=== PATIENT | male | born 1950 | race Caucasian/White ===

== ENCOUNTER → 2017-10-15 13:55 | Outpatient (CLI) | payer MEDICARE, OTHER, SELFPAY | PROVIDERS: Family Provider Family Medicine; PCP Family Medicine; Visit Provider Internal Medicine Cardiovascular Disease | DX: I48.91 Unspecified atrial fibrillation (principal) | CPT/HCPCS: 93225; 93226 ==

== ENCOUNTER 2018-08-09 06:17 | Emergency (ER) | payer MEDICARE, OTHER, SELFPAY ==
[2018-08-09 06:18] VITALS: BP 171/93; PULSE 78; RESP 15; TEMP 36.6; O2SAT 93; BMI 31.3
--- NOTE | 2018-08-09 07:16 | CT_ITS ---
STUDY: CT ABDOMEN AND PELVIS WITHOUT CONTRAST REASON FOR EXAM: Male, 68 years old. LOW ABD PAIN, N/V, CONSTIPATION, URINARY FREQUENCY, URINARY PRESSURE-JUST PUT BARRETT IN AND PRESSURE IMPROVED, S/P LB SURG 3 DAYS AGO, HX-HTN, PE, A-FIB. RADIATION DOSAGE (If Supplied By Facility): CTDIvol = ( 18 ) mGy, DLP = ( 930.91 ) mGycm TECHNIQUE: Transaxial images were obtained from the dome of the diaphragm to the symphysis pubis without oral contrast, and without intravenous contrast. Sagittal and coronal images were reconstructed. Individualized dose optimization techniques were used for this CT. COMPARISON: None. FINDINGS: The visualized lung bases are unremarkable. The visualized portions of the heart are within normal limits. Normal liver. Normal gallbladder and extrahepatic biliary system. Normal spleen. Normal pancreas. Normal bilateral adrenal glands. There is minimal prominence of the bilateral collecting system with perinephric stranding. The urinary bladder is decompressed with a Barrett catheter. There is a 3 mm calcification at the right kidney. Normal visualized stomach. Normal small intestine. Normal colon. The appendix is visualized and appears normal. There is diffuse atherosclerotic calcification of the abdominal aorta, without a demonstrated aneurysm. Normal inferior vena cava. Normal retroperitoneum. The urinary bladder is decompressed with a Barrett catheter Normal abdominal wall. There are diffuse degenerative changes of the visualized lumbar spine. There is decompression laminectomy with surgical changes overlying the lower lumbar spine. CT/Abdomen/Pelvis without Cont IMPRESSION: Minimal hydroureteronephrosis with perinephric stranding. No ureteral stones. Laminectomy and surgical changes. Electronically Signed: Rica Lerner MD at 8:54 EST Tel , Service support ,
--- NOTE | 2018-08-09 07:18 | ED.VIS.GEN ---
History of Present Illness Informant: Patient, Significant Other Narrative: Patient presenting with abdominal discomfort and significant pain throughout his lower abdomen, with distention, nausea, vomiting. He has not had a bowel movement in 1 week, and just had back surgery for spinal stenosis 5 days ago. He usually has a daily bowel movement. He has been having weakness and numbness in his legs that are slightly better since his surgery that was performed by Dr. Mcneill at [facility] in [place]. His back is not bothering him very much at all. He is taking oral narcotic pain medication. He was discharged from the hospital last night just about 14-15 hours ago. He states over the past 2 days or so, he has been having symptoms of urinary retention and stress incontinence, and has not been able to have a bowel movement despite lots of stool softeners, laxatives, MiraLAX, enemas. Since having the urinary symptoms his abdominal discomfort has been much worse. 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 He states today he notices that he has perineal numbness, which is new. He was on Xarelto prior to the surgery for chronic paroxysmal A. fib, he is symptomatic when in atrial fibrillation and has had none of that recently, and is supposed to go back on Eliquis afterwards for insurance reasons, but at this time is not taking any anticoagulants. <Chiki Caldera - Last Filed: 08/09/18 07:51> <Forrest Lawrence - Last Filed: 08/09/18 09:24> Chief Complaint: Abd Pain - Past Medical History (1) Spinal stenosis Status: Chronic (2) Paroxysmal atrial fibrillation Status: Chronic (3) Hypertension Status: Chronic <Chiki Caldera - Last Filed: 08/09/18 07:51> Past Medical History Surgical History: - - Ankle and foot fusion Lives: Spouse/ Significant Other Smoking Status: Never smoker - Family History Maternal Family History: Family History (Last Updated 02/27/18 @ 07:15 by Loren Degroot) Mother CVA (cerebral vascular accident) Hypertension Brother Diabetes Family History: Reports: Stroke Paternal Family History: Family History (Last Updated 02/27/18 @ 07:15 by Loren Degroot) Mother CVA (cerebral vascular accident) Hypertension Brother Diabetes Family History: Reports: No pertinent history <Chiki Caldera - Last Filed: 12/02/18 07:51> - Family History Maternal Family History: Family History (Last Updated 02/27/18 @ 07:15 by Loren Degorot) Mother CVA (cerebral vascular accident) Hypertension Brother Diabetes Paternal Family History: Family History (Last Updated 02/27/18 @ 07:15 by Loren Degroot) Mother CVA (cerebral vascular accident) Hypertension Brother Diabetes <Forrest Lawrence - Last Filed: 08/09/18 09:24> - Allergies and Home Meds Allergies/Adverse Reactions: Allergies sulfamethoxazole [From Bactrim] Allergy (Verified 08/09/18 06:24) Hives trimethoprim [From Bactrim] Allergy (Verified 07/13/18 11:06) Hives oxycodone Adverse Reaction (Verified 08/09/18 06:25) Other Primary Care Physician: Linden Velázquez [Primary Care Provider] - 3-5 Days Jack Sanders MD [STAFF PHYSICIAN] - 3-5 Days Review of Systems General: Denies: Chills, Fever, Sweats Eyes: Denies: Visual changes - bilaterally, Diplopia ENT: Denies: Rhinorrhea, Sore throat Cardiovascular: Denies: Chest pain, Palpitations Respiratory: Denies: Dyspnea, Cough, Dyspnea on exertion Gastrointestinal: Reports: Abdominal pain, Nausea, Vomiting, Constipation. Denies: Diarrhea, Melena, Hematochezia Genitourinary: Reports: Frequency, - - retention. stress incontinence when stands up especially.. Denies: Dysuria, Hematuria Musculoskeletal: Reports: Back pain - mild, improved. Denies: Neck pain, Swelling, Extremity Pain Skin: Reports: Wounds - surgical back wound, decreased drainage. Denies: Rash Neurological: Denies: Headache, Weakness, Numbness Endocrine: Denies: Polyuria, Polydipsia Allergy: Denies: Swelling of the mouth, Swelling of the tongue <Chiki Caldera - Last Filed: 08/09/18 07:51> Physical Exam Vital Signs/Narrative: Vital Signs Temp Pulse Resp BP Pulse Ox 08/09/18 06:18 97.8 F 78 15 171/93 H 93 Inital Vital Signs reviewed: Yes General: Well nourished, Well developed, - - NAD Head: Normocephalic, Atraumatic Eyes: Perrl, EOMI ENT: Moist mucous membranes, No rhinorrhea Neck: Supple, Nontender Cardiovascular: Regular rate, Regular rhythm, No murmurs Respiratory: No distress, CTA bilaterally, Chest nontender Abdomen: Soft, Tender - throughout lower abd, Hypoactive bowel sounds, Umbilical hernia - nontender, not erythemetous, reducible termporarily, - - distended. Negative for: Guarding, Rebound tenderness Back: Nontender, Normal Inspection Extremities: Nontender, No edema Skin: Normal color, No rash, - - no lumbar surgical incision dehiscence or signs of infection Neurological: Alert, Oriented x3, Cranial nerves II-XII grossly intact, Normal Strength, Normal Sensation Psychological: Normal affect <Chiki Caldera - Last Filed: 08/09/18 07:51> Vital Signs/Narrative: Vital Signs Temp Pulse Resp BP Pulse Ox 08/09/18 08:24 758 H 18 157/82 H 100 08/09/18 06:18 97.8 F 78 15 171/93 H 93 <Forrest Lawrence - Last Filed: 08/09/18 09:24> Diagnostic/Tx/Re-eval - Medical Decision Making Seen shortly before shift change. Differential diagnosis includes ileus that has yet to resolve versus constipation causing urinary retention, or mechanical obstruction. Labs, urinalysis, CT ordered along with a postvoid residual to see if he needs relief from urinary retention. <Chiki Caldera - Last Filed: 08/09/18 07:51> - Medical Decision Making Lab workup shows a 16,000 white count. Normal hemoglobin. Electrolytes are unremarkable. UA was normal. The nurses did a bladder scan it was over thousand cc. They have placed a Romano catheter which had 1700 cc of clear yellow urine out. Patient had immediate relief. Roamno catheter is in place. CT abdomen and pelvis done shows stool and otherwise unremarkable chronic changes. No signs of obstruction. No perforation. There is an incidental finding of a stone in his kidney. On multiple repeat exams patient is doing very well. His abdomen is benign. I have gone over all test results of both he and his . They are comfortable with him being discharged home with a Romano catheter in place. He will either follow-up with his primary care physician or the urologist on-call for removal of the Romano and repeat evaluation. Magnesium citrate for constipation. Impressions: 1. Acute urinary retention 2. Acute constipation 3. Status post recent back surgery <Forrest Lawrence - Last Filed: 08/09/18 09:24> ED Disposition <Chiki Caldera - Last Filed: 08/09/18 07:51> <Forrest Lawrence - Last Filed: 08/09/18 09:24> - Plan for ED Patient: Disposition: Home or Assisted Living Chief Complaint: Abd Pain Instructions: ED Constipation, ED Retention Urinary Male Referrals: Linden Velázquez [Primary Care Provider] - 3-5 Days Jack Sanders MD [STAFF PHYSICIAN] - 3-5 Days Additional Instructions: Follow-up with your primary care physician or Dr. Sanders of Urology to have the Romano catheter removed. Magnesium citrate for constipation along with plenty of water, fruits, vegetables and fiber.
[2018-08-09] MEDS: Ondansetron 4 MG/2 ML Vial IV (07:42)
[2018-08-09] MEDS: Morphine 4 MG/ML Syringe IV (07:51)
[2018-08-09 08:08] LABS: Absolute Lymphocyte Count 1.34 X10^3/ul (0.83-4.51); Absolute Neutrophil Count 13.6 X10^3/uL (2.0-7.7); Basophil# 0.01 X10^3/uL; Basophil% 0.1 % (0-1); Eosinophil# 0.01 X10^3/uL; Eosinophils% 0.1 % (0-5); Hematocrit 39.1 % (40-54); Hemoglobin 13.2 g/dl (13.0-16.5); Lymphocyte # 1.34 X10^3/ul (4.0); Lymphocyte % 8.1 % (19-41); Mean Corp Hgb Conc 33.8 g/gl (32-36); Mean Corpuscular Hgb 32.5 pg (27.0-32.0); Mean Corpuscular Volume 96.3 fL (80-94); Mean Platelet Vol. 10.8 fl (6.2-12.0); Monocyte# 1.54 X10^3/uL; Monocyte% 9.3 % (0-10); Neutrophil # 13.64 X10^3/uL (2.7-7.7); Neutrophil % 82.3 % (47-70); Platelet Count 196 K/mm3 (150-450); RBC Distribution Width CV 13.7 % (11.6-14.6); RBC Distribution Width SD 47.4 fl (35.1-43.9); Red Blood Count 4.06 M/mm3 (4.6-6.2); White Blood Count 16.6 K/mm3 (4.4-11.0)
[2018-08-09 08:09] LABS: Differential Indicated SCAN CRITERIA MET; POSITIVE COUNT NO; POSITIVE DIFFERENTIAL YES; POSITIVE MORPHOLOGY NO
--- NOTE | 2018-08-09 08:10 | ED.RN ---
after bladder drained. pt pain relieved to 2/10. no further distress noted.
[2018-08-09 08:16] LABS: ALB/GLOB Ratio 0.8 RATIO (0.9-2.4); AST(SGOT) 18 U/L (15-37); Alanine Aminotransfer ALT/SGPT 17 U/L (16-61); Albumin, Serum 3.2 g/dL (3.2-5.0); Alkaline Phosphatase 50 U/L (45-117); Anion Gap 8 (5-15); BUN 13 mg/dL (7-18); BUN/Creat Ratio 17.4 RATIO (10-20); Calcium,Total 8.8 mg/dL (8.5-10.1); Chloride 97 mmol/L (98-107); Creatinine, Serum 0.75 mg/dL (0.70-1.30); EST Glomerular Filtration Rate 111 mL/min (>60); Est Glom Filt Rate - Afr Amer 134 mL/min (>60); Estimated Creatinine Clearance 78.68 ml/min; Globulin 3.9 g/dL (2.2-4.2); Glucose 161 mg/dL (74-106); Protein, Total 7.1 g/dL (6.4-8.2); Sodium Level 137 mmol/L (136-145)
[2018-08-09 08:17] LABS: Bacteria 0 SEEN /hpf (None Seen); Mucous, Urine 0 SEEN /hpf (<or=2+); Red Blood Cells-Urine 0 SEEN /hpf (0-5); Squamous Epithelial Cells - UA 0 SEEN /hpf (0-5); White Blood Cells 0 SEEN /hpf (0-5)
[2018-08-09 08:18] LABS: Color, Urine Yellow (Yellow); Glucose, Dipstick Normal (Normal); Ketone-Dipstick Negative (Negative); Leukocyte Esterase-Dipstick Negative /ul (Negative); Nitrite-Dipstick Negative (Negative); Occult Blood-Urine 150 /ul (Negative); Protein-Dipstick Negative (Negative); Specific Gravity, Urine 1.015 (1.002-1.030); Urine Bilirubin Dipstick Negative (Negative); Urine Clarity Clear (Clear); Urine Urobilinogen Normal (Normal)
[2018-08-09 08:24] VITALS: BP 157/82; PULSE 758; RESP 18; O2SAT 100
--- NOTE | 2018-08-09 08:35 | ED.DEP ---
ED Disposition - Plan for ED Patient: Disposition: Home or Assisted Living Chief Complaint: Abd Pain Instructions: ED Constipation, ED Retention Urinary Male Referrals: Linden Velázquez [Primary Care Provider] - 3-5 Days Jack Sanders MD [STAFF PHYSICIAN] - 3-5 Days Additional Instructions: Follow-up with your primary care physician or Dr. Sanders of Urology to have the Romano catheter removed. Magnesium citrate for constipation along with plenty of water, fruits, vegetables and fiber.
[2018-08-09 09:39] VITALS: BP 113/68; PULSE 71; RESP 15; O2SAT 98
[2018-08-09 09:44] VITALS: BP 142/87; PULSE 75; RESP 16; O2SAT 98
--- NOTE | 2018-08-09 09:45 | ED.RN ---
pt declined mag citrate. dr mcgregor aware and okay with that plan. to get otc if needed. lag bag place. catheter care reviewed. and pt verbalize understanding.
[2018-08-12 13:29] LABS: Pathologist Review Reviewed
--- OUTSIDE RECORDS SUMMARY | 2018-10-02 22:36 | XMS RPT_ITS | Clinical Summary ---
:1950 Author Organization [facility] Address [address] [place] [address] Phone Care Team Providers Name Role Phone MerlinLiang Unavailable 330 Conditions or Problems Problem Name Problem Onset Status Entry Provider Comment Standard Annotate Code Date Date Description Dyspnea on 02329088 Active Fatmata Young Dyspnea on exertion (SNOMED 11/15 11/[address]) Body mass Z68.31 Active Reji Garcia Body mass index index (BMI) (ICD-10-CM 11/14 11/14 Amanda (BMI) 31.0-31.99, ) 31.0-31.9, adult adult MCC Z79.01 Active Janene K MCC (current) use (ICD-10-CM 11/13 11/13 Richy (current) use of ) RN of anticoagulant anticoagulants s Essential I10 Active Janene K Essential (primary) (ICD-10-CM 11/13 11/13 Richy (primary) hypertension ) RN hypertension Paroxysmal 474870102 Active Janene K Paroxysmal atrial (SNOMED 11/13 11/[address]) RN fibrillation Medications Medication Instructions Start Stop Generic Name ND Provider Date Date COREG 12.5 MG One tablet by / CARVEDILOL [id number] Lroen Whitehead TABS mouth twice 08 Kiser, daily PA-C COREG 6.25 MG One tablet by / CARVEDILOL [id number] Reji Garcia TABS mouth twice 08 Amanda CARL daily VITAMIN C 1000 One tablet by / ASCORBIC ACID 76850036283 Reji Garcia MG TABS mouth daily Amanda CARL VITAMIN C 1000 One tablet by / ASCORBIC ACID [id number] Sina Alvarado MG TABS mouth daily WOOL SHEARING SUPERVISOR XARELTO 20 MG One tablet by / RIVAROXABAN 76293579683 Janene K TABS mouth daily 08 Richy PORTER MULTIVITAMINS One tablet by / MULTIPLE Janene K TABS mouth daily 08 VITAMIN Richy PORTER ASPIRIN EC 81 MG One tablet by / ASPIRIN [id number] Janene K TBEC mouth daily 08 Richy PORTER ASPIRIN EC 81 MG One tablet by / ASPIRIN [id number] Reji Garcia TBEC mouth daily Amanda CARL NAPROXEN SODIUM One tablet by / NAPROXEN [id number] Janene K 220 MG TABS mouth twice 08 SODIUM Richy PORTER daily CARVEDILOL 3.125 One tablet by / CARVEDILOL [id number] Janene K MG TABS mouth twice 08 Richy PORTER daily NAPROXEN SODIUM Two tablets by / NAPROXEN [id number] Reji Garcia 220 MG TABS mouth daily 08 SODIUM Amanda CARL NAPROXEN SODIUM Two tablets by / NAPROXEN [id number] Loren Whitehead 220 MG TABS mouth daily GABE Kiser PA-C NAPROXEN SODIUM one pill in the / NAPROXEN [id number] Sina Vance Christiano 220 MG TABS morning and two 03 SODIUM WOOL SHEARING SUPERVISOR pills in the evening. Medications Administered No information available. Allergies, Adverse Reactions, Alerts Allergy Name Reaction Description Start Date Severity Status Provider SULFAMETHOXAZOLE rash Moderate Active Janene Lockhart RN Results Date Name Value Unit Range Flag Description Clinical Lists Update: Preload SMOK STATUS Never smoker Tobacco use [facility] Replaced Document: Midmark ECG Observations EKG INTERP Sinus Rhythm WITHIN electrocardiogram interpretation NORMAL LIMITS EKG T AXIS 26 deg T wave axis, electrocardiogram EKG QRS AXIS 13 deg QRS axis, electrocardiogram EKG PWAVAXIS 40 deg P wave axis, electrocardiogram QRS INTERVAL 98 ms QRS duration, electrocardiogram ZZ-GE-unk 395 ms GE use only - for LinkLogic import when terms are not otherwise specified QT INTERVAL new path ms QT interval, electrocardiogram FL INTERVAL 142 ms FL interval, electrocardiogram EKGHRTRATE 61 BPM heart rate on electrocardiogram Lab Report: Basic Metabolic Profile (BMP) ANION GAP 10 5-15 anion gap, serum CO2 27.0 mmol/L 21.0-32.0 carbon dioxide, venous blood CHLORIDE 102 mmol/L 98-107 chloride, serum POTASSIUM 4.3 mmol/L 3.5-5.1 potassium, serum SODIUM 139 mmol/L 136-145 sodium, serum CALCIUM 9.0 mg/dL 8.5-10.1 calcium, serum BUN/CREAT 24.7 RATIO 10-20 H urea nitrogen/creatinine ratio, serum GFRAA 123 mL/min >60 Glomerular Filtration rate GFR EST 102 mL/min >60 estimated glomerular filtration rate CREATININE 0.81 mg/dL 0.70-1.30 creatinine, serum BUN 20 mg/dL 7-18 H urea nitrogen, blood GLUCOSE SER 109 mg/dL 70-110 blood glucose Lab Report: Liver Profile BILI DIRECT 0.23 mg/dL 0.00-0.30 bilirubin, serum, direct BILI TOTAL 1.10 mg/dL 0.20-1.00 H bilirubin, serum, total SGPT (ALT) 20 U/L 12-78 alanine aminotransferase (SGPT), serum ALK PHOS 50 U/L 45-117 alkaline phosphatase, serum SGOT (AST) 12 U/L 15-37 L aspartate aminotransferase (SGOT), serum GLOBULIN TOT 3.7 g/dL 2.3-3.5 H globulins, serum, total ALBUMIN 3.9 g/dL 3.4-5.0 albumin, serum PROTEIN, TOT 7.6 g/dL 6.4-8.2 protein, total, serum Lab Report: Lipid Profile VLDL 34 mg/dL 5-40 very low density lipoproteins LDL 71 mg/dL 0-130 Cholesterol in LDL [Mass/volume] in Serum or Plasma HDL 55 mg/dL Cholesterol in HDL [Mass/volume] in Serum or Plasma TRIGLYCRDES 170 mg/dL Triglyceride [Mass/volume] in Serum or Plasma CHOLESTEROL 160 mg/dL 200 Cholesterol [Mass/volume] in Serum or Plasma Lab Report: T4 Total, Thyroxin T4, TOTAL 7.1 ug/dL 4.5-12.1 thyroxine, serum, total Lab Report: Thyroid Stim Hormone (TSH) TSH 0.99 u[iU]/mL 0.358-3.74 thyroid stimulating hormone, serum Office Visit: [facility] No Fall risk assessment Lab Report: CBC W/Diff, Automated LYMPHCT AUTO 2.29 X10 3/UL 10*3/mm3 0.83-4.51 lymphocyte count, blood, automated ANC 5.9 X10 3/UL 10*3/mm3 2.0-7.7 neutrophil count, blood IMM GRANU % 0.100 % 0.0-0.9 immature granulocytes, percentage of total cells, blood BASOPHIL % 0.1 % 0-1 basophils as percent of blood leukocytes EOSINOPHIL % 1.4 % 0-5 eosinophils as percent of blood leukocytes MONOCYTE % 8.8 % 0-10 monocytes as percent of blood leukocytes LYMPHS % 25.0 % 19-41 lymphocytes as percent of blood leukocytes PMN % 64.6 % 47-70 neutrophils as percent of blood leukocytes MPV 10.7 fL 6.2-12.0 mean platelet volume PLATELETS 260 10*3/mm3 150-450 platelet count RDW-SD 48.5 fL 35.1-43.9 H red blood cell distribution width, size density RDW 13.7 % 11.6-14.6 red blood cell distribution width MCHC RBC 34.5 G/GL g/dL 32-36 mean corpuscular hemoglobin concentration, RBC MCH 34.8 pg 27.0-32.0 H mean corpuscular hemoglobin, RBC MCV 100.9 fL 80-94 H mean corpuscular volume, RBC HCT 43.2 % 40-54 hematocrit, blood HGB 14.9 g/dL 13.0-16.5 hemoglobin, blood RBC M/UL 4.28 10*6/uL 4.6-6.2 L red blood count WBC BLOOD 9.2 10*9/L 4.4-11.0 leukocyte (white blood cells) count, blood Office Visit: [facility] yes Dietary management education, guidance, and counseling (procedure) MEDS REVIEW Done Documentation of current medications (procedure) Plan of Care Type Date Detail Appointment 04:00 PM Sina Alvarado NP, [address], [address], [place], [address], Appointment 09:45 AM Reji Patel MD, [address], [address], [place], [address], Pending order PFM Pending order Follow Up Appt 6 months Pending order MMM Pending order Follow Up Appt 3 months Pending order *CBC with Differential Pending order *CBC without Diff Pending order *BMP Pending order *T4 (Total) Pending order *TSH Pending order EKG (In office) Pending order *Hepatic Function Panel Pending order *Lipid Profile CC PCP Pending order X-Ray, Chest, PA & Lateral Pending order Nuclear stress test -exercise Pending order MMM Pending order Follow Up Appt 3 months Procedures Code Procedure Name Date Entry Date F/U PFM PFM FUA 6 months Follow Up Appt 6 months F/U MMM MMM FUA 3 months Follow Up Appt 3 months 0184-1 *CBC with Differential F/U MMM MMM FUA 3 months Follow Up Appt 3 months CPT-03571 EKG (In office) NSTE Nuclear stress test -exercise 24341-6 *CBC without Diff 0667-1 *BMP 0788-1 *Hepatic Function Panel 72404-6 *Lipid Profile CC PCP 3026-2 *T4 (Total) 3016-3 *TSH CPT-08439 X-Ray, Chest, PA & Lateral Vital Signs Date Name Value Unit Description BMI (Body Mass Index) 31.60 kg/m2 Body Mass Index [Ratio] BP Diastolic 78 mm[Hg] blood pressure, diastolic - 8462-4 BP Systolic 128 mm[Hg] blood pressure, systolic - 8480-6 Heart Rate 66 /min pulse rate E&M - 8867-4 Height 72 [in_us] height E&M - 8302-2 Weight Measured 233 [lb_av] weight E&M - 3141-9 Respiratory Rate 18 /min respiratory rate E&M - 9279-1
--- OUTSIDE RECORDS SUMMARY | 2018-10-02 22:36 | XMS RPT_ITS ---
:1950 Author Organization [facility] [facility] Address [address] [place], [place] [address] [place] [address] Phone Care Team Providers Name Role Phone Isai LAURA, Rabia Whitehead Sally Reason for Visit Reason For Visit Description Start Date New/Est - 1st visit with physician Preliminary reason for visit data, not yet signed by the author as of lower back pain Preliminary reason for visit data, not yet signed by the author as of Chief Complaint Chief Complaint Description Start Date lower back pain Preliminary chief complaint data, not yet signed by the author as of Instructions Instruction Description Start Date Patient advised to follow-up with Primary Care Physician for BMI management. Plan of Care Type Date Detail Appointment 09:00 AM Rabia LAURA, [address], [place], [address], Appointment 12:00 PM Rabia LAURA, [facility], [address], [place], [address], Appointment 09:20 AM Kian Mcneill DO, [address] [address], [address], [place], [address], Pending order XR LUMBAR 4VWS FLEX/EX Pending order MRI lumbar without contrast Medications Medication Instructions Start Stop Generic Name NDC Provider Date Date XARELTO 20 MG 1 tablet daily RIVAROXABAN [id number] Heidi TABS 17 Watson LUBE TECHNICIAN COREG 12.5 MG 1 tablet twice / CARVEDILOL 10232567094 Heidi TABS daily 17 Watson LUBE TECHNICIAN ALEVE 220 MG as directed as / NAPROXEN 02120707437 Heidi TABS needed 17 SODIUM Watson LUBE TECHNICIAN MULTIVITAMIN 1 tablet daily [id number] Heidi ADULT TABS 06 VITAMINS-CLINICAL MASSAGE THERAPIST Watson ALS LUBE TECHNICIAN Conditions or Problems Problem Problem Onset Status Entry Provider Comment Standard Annotate Name Code Date Date Description Lumbar 79329945 Active Rabia Whitehead Degeneration of Severe degenerativ (SNOMED CT) 04/27 04/27 [place] lumbar multilevel e disc SENIOR C SOFTWARE DEVELOPER-INSPECTOR BOILER intervertebral disease disc Lumbar 93029815738 Active Rabia Whitehead Neurogenic stenosis 9102 04/27 04/27 [place] claudication with (SNOMED CT) SENIOR C SOFTWARE DEVELOPER-INSPECTOR BOILER co-occurrent neurogenic and due to claudicatio spinal stenosis n of lumbar region Allergies, Adverse Reactions, Alerts Allergy Name Reaction Start Date Severity Status Provider Description BACTRIM rash Critical Active Heidi Watson (SULFAMETHOXAZ LUBE TECHNICIAN OLE-TRIMETHOPR IM) Social History No information available. Vital Signs Date Name Value Unit Description BMI (Body Mass 31.49 kg/m2 Body Mass Index Index) [Ratio] Preliminary vital sign data, not yet signed by the author as of BP Diastolic 78 mm[Hg] blood pressure, diastolic Preliminary vital sign data, not yet signed by the author as of BP Systolic 129 mm[Hg] blood pressure, systolic Preliminary vital sign data, not yet signed by the author as of Heart Rate 67 /min pulse rate E&M Preliminary vital sign data, not yet signed by the author as of Height 71 [in_us] height E&M Preliminary vital sign data, not yet signed by the author as of Height 180 cm height in centimeters E&M Preliminary vital sign data, not yet signed by the author as of Weight Measured 225 [lb_av] weight E&M Preliminary vital sign data, not yet signed by the author as of Weight Measured 102 kg weight in kilograms E&M Preliminary vital sign data, not yet signed by the author as of Results Date Name Value Unit Range Flag Description Office Visit: New/Est - 1st visit with physician, Rm: 43 MEDS REVIEW Done Documentation of current medications (procedure) Preliminary observation data, not yet signed by the author as of Preliminary observation data, not yet signed by the author as of Clinical Summary: Scanned ROS Summary ROS: Denies genitourinary review of systems, E&M ROS: GI Denies ROS gastrointestinal E&M ROS ENDO Denies endocrine ROS ROS MSK COMM Muscle ROS Musculoskeletal Cramps,Muscle comments Weakness,Pain,J oint Pain,Stiffness, Arthritis ROS:MUSCSKEL Complains ROS musculoskeletal E&M ROS: PSYCH Denies ROS psychiatric E&M ROS HEME Denies ROS hematologic/lymphatic E&M ROS_SKIN_COM Hives Review of Systems Skin comment ROS SKIN Complains ROS skin E&M ROS ENT Denies ROS ENT E&M ROS:GENERAL Denies ROS general E&M ROS_NEUR_COM Numbness,Tingli Review of Systems ng,Weakness Neurologic comment ROS: NEURO Complains ROS neurological E&M ROS:PULMON Denies ROS pulmonary E&M ROS: CARDIAC Denies ROS cardiovascular E&M Clinical Summary: HMSPatientID OOP account number Clinical Lists Update: Preload Extended SMOK STATUS never smoker Tobacco smoking status NHIS Procedures Code Procedure Name Date Entry Date G8730 Pain assessment documented as positive - follow-up documented G8427 Current medications documented 1036F Tobacco screening was negative - non user G8417 BMI documented as above normal parameters - follow-up documented G8783 Blood pressure within normal parameters - no follow-up required [facility]-[id number] Patient Encounter Medications Administered No information available. Immunizations No information available. Advance Directives There may be information available, but it has not been provided by the sender. Assessments There may be information available, but it has not been provided by the sender. Review of Systems There may be information available, but it has not been provided by the sender. Family History There may be information available, but it has not been provided by the sender. History of Past Illness There may be information available, but it has not been provided by the sender. History of Present Illness There may be information available, but it has not been provided by the sender.
--- OUTSIDE RECORDS SUMMARY | 2018-10-02 22:36 | XMS RPT_ITS ---
:1950 Author Organization [employer] Address [address] [place] [address] Phone Care Team Providers Name Role Phone Ventura LAURA, Ashley Zavala Reason for Visit Reason For Visit Description Start Date Postop - 1st visit Preliminary reason for visit data, not yet signed by the author as of mid back post bilateral posterior hemilectomy T11, T12 and bilateral posterior hemilectomy L2-L5 on 08/05/2018 Preliminary reason for visit data, not yet signed by the author as of Chief Complaint Chief Complaint Description Start Date mid back post bilateral posterior hemilectomy T11, T12 and bilateral posterior hemilectomy L2-L5 on 08/05/2018 Preliminary chief complaint data, not yet signed by the author as of Instructions Instruction Description Start Date Patient advised to follow-up with Primary Care Physician for BMI management. Plan of Care Type Date Detail Appointment 11:00 AM Ashley LAURA, [address] [facility], [facility], [place], [address], Appointment 01:00 PM Ashley LAURA, [address] [facility], [facility], [place], [address], Medications Medication Instructions Start Stop Generic Name NDC Provider Date Date XARELTO 20 MG 1 tablet daily / RIVAROXABAN [id number] Heidi TABS 17 Watson WRAPPER HAND COREG 12.5 MG 1 tablet twice / CARVEDILOL 76626862949 Heidi TABS daily 17 Watson WRAPPER HAND ALEVE 220 MG as directed as / NAPROXEN [id number] Heidi TABS needed 17 SODIUM Watson WRAPPER HAND MULTIVITAMIN 1 tablet daily [id number] Heidi ADULT TABS 06 VITAMINS-PNEUMATIC SYSTEMS OPERATOR Watson ALS WRAPPER HAND Conditions or Problems Problem Problem Onset Status Entry Provider Comment Standard Annotate Name Code Date Date Description Other 699114791 Active Ashley Surgical specified (SNOMED CT) 10/14 10/14 [place] follow-up aftercare RESEARCH COORDINATOR-DIRECTOR FOUNDATION following surgery HNP 169484997 Active Ashley Prolapsed (herniated (SNOMED CT) 05/07 05/07 [place] lumbar nucleus RESEARCH COORDINATOR-DIRECTOR FOUNDATION intervertebral pulposus), disc lumbar Lumbar 08534602 Active Rabia Whitehead 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 Vital Signs Date Name Value Unit Description BMI (Body Mass 31.49 kg/m2 Body Mass Index Index) [Ratio] Preliminary vital sign data, not yet signed by the author as of BP Diastolic 78 mm[Hg] blood pressure, diastolic Preliminary vital sign data, not yet signed by the author as of BP Systolic 130 mm[Hg] blood pressure, systolic Preliminary vital sign data, not yet signed by the author as of Heart Rate 65 /min pulse rate E&M Preliminary vital sign [...] Value Unit Range Flag Description Office Visit: Postop - 1st visit, Rm: 31 MEDS REVIEW Done Documentation of current medications (procedure) Preliminary observation data, not yet signed by the author as of Preliminary observation data, not yet signed by the author as of Clinical Summary: [facility] OOP account number Procedures Code Procedure Name Date Entry Date G8731 Pain assessment documented as negative - follow-up not required G8427 Current medications documented 1036F Tobacco screening was negative - non user G8417 BMI documented as above normal parameters - follow-up documented G8783 Blood pressure within normal parameters - no follow-up required [facility]-[id number] Patient Encounter Medications Administered No information available. [...]
--- OUTSIDE RECORDS SUMMARY | 2018-10-02 22:36 | XMS RPT_ITS | Clinical Summary ---
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 Janene K snf (current) use (ICD-10-CM 11/13 11/13 Richy (current) use of ) RN of anticoagulant anticoagulants s Essential I10 Active Janene K Essential (primary) (ICD-10-CM 11/13 11/13 Richy (primary) hypertension ) RN hypertension Paroxysmal 267190192 Active Janene K Paroxysmal atrial (SNOMED 11/13 11/[address]) RN fibrillation Medications Medication Instructions Start Stop Generic Name NDC Provider Date Date COREG 12.5 MG One tablet by / CARVEDILOL [id number] Loren Whitehead TABS mouth twice 08 jake Kiser PA-C COREG 6.25 MG One tablet by / CARVEDILOL 77642303856 Reji Garcia TABS mouth twice 08 Amanda CARL daily XARELTO 20 MG One tablet by / RIVAROXABAN 00674739101 Janene Mcmillan TABS mouth daily 08 Richy RN MULTIVITAMINS One tablet by / MULTIPLE Janene K TABS mouth daily 08 VITAMIN Richy PORTER VITAMIN C 1000 One tablet by / ASCORBIC ACID 12542008796 Reji F MG TABS mouth daily 09 Amanda CARL ASPIRIN EC 81 MG One tablet by / ASPIRIN 45031199171 Janene K TBEC mouth daily 08 Richy PORTER ASPIRIN EC 81 MG One tablet by ASPIRIN 13036583614 Reji Garcia TBEC mouth daily Amanda CARL NAPROXEN SODIUM One tablet by / NAPROXEN 05758595774 Janene K 220 MG TABS mouth twice 08 SODIUM Richy PORTER daily CARVEDILOL 3.125 One tablet by / CARVEDILOL 60149597092 Janene K MG TABS mouth twice 08 Richy PORTER daily NAPROXEN SODIUM Two tablets by / NAPROXEN 89353284579 Reji Garcia 220 MG TABS mouth daily 08 SODIUM Amanda CARL NAPROXEN SODIUM Two tablets by NAPROXEN 32010381107 Loren Whitehead 220 MG TABS mouth daily GABE Kiser PA-C Medications Administered No information available. Allergies, Adverse Reactions, Alerts Allergy Name Reaction Description Start Date Severity Status Provider SULFAMETHOXAZOLE rash Moderate Active Janene Lockhart RN Results Date Name Value Unit Range Flag Description Clinical Lists Update: Preload SMOK STATUS Never smoker Tobacco use [facility] Office Visit DIET PUBLICATIONS DISTRIBUTION CLERK yes Dietary management education, guidance, and counseling (procedure) Replaced Document: [facility]mark ECG Observations EKG INTERP [...] INTERVAL new path ms QT interval, electrocardiogram [place] INTERVAL 142 ms [place] interval, electrocardiogram EKGHRTRATE 61 BPM heart rate [...] 0.358-3.74 thyroid stimulating hormone, serum Office Visit: [facility] MEDS REVIEW Done Documentation of current medications (procedure) FALLRSKASSES No Fall risk assessment Lab Report: CBC [...] 4.4-11.0 leukocyte (white blood cells) count, blood Plan of Care Type Date Detail Appointment 11:00 AM Loren Kiser PA-C, [address] [facility], [address], [place], [address], Pending order MMM Pending order Follow Up [...] Code Procedure Name Date Entry Date F/U MMM MMM FUA 3 months Follow Up Appt 3 months 0184-1 *CBC with Differential F/U MMM MMM FUA 3 months Follow Up Appt 3 months CPT-96648 EKG (In office) NSTE Nuclear stress test -exercise 59578-2 *CBC without Diff 0667-1 *BMP 0788-1 *Hepatic Function Panel 79311-6 *Lipid Profile CC PCP 3026-2 *T4 (Total) 3016-3 *TSH CPT-64890 X-Ray, Chest, PA & Lateral Vital Signs Date Name Value Unit Description BMI (Body Mass Index) 31.41 kg/m2 Body Mass Index [Ratio] BP Diastolic 82 mm[Hg] blood pressure, diastolic - 8462-4 BP Systolic 140 mm[Hg] blood pressure, systolic - 8480-6 Heart Rate 76 /min pulse rate E&M - 8867-4 Height 72 [in_us] height E&M - 8302-2 Respiratory Rate 18 /min respiratory rate E&M - 9279-1 Weight Measured 231.6 [lb_av] weight E&M - 3141-9
--- OUTSIDE RECORDS SUMMARY | 2018-10-02 22:36 | XMS RPT_ITS ---
:1950 Author Organization [employer] Address [address] [place] [address] [place] [address] Phone Care Team Providers Name Role Phone Ventura LAURA, Ashley Zavala Reason for Visit Reason For Visit Description Start Date Postop - subsequent visit Preliminary reason for visit data, not yet signed by the author as of lower back post bilateral posterior hemilectomy T11 T12 bilateral posterior hemilectomy L2-L5 on 08/05/2018 Preliminary reason for visit data, not yet signed by the author as of Chief Complaint Chief Complaint Description Start Date lower back post bilateral posterior hemilectomy T11 T12 bilateral posterior hemilectomy L2-L5 on 08/05/2018 Preliminary chief complaint data, not yet signed by the author as of Instructions Instruction Description Start Date Patient advised to follow-up with Primary Care Physician for BMI management. Plan of Care Type Date Detail Appointment 01:00 PM Ashley LAURA, [address] [facility], [place], [address], Appointment 09:00 AM Ashley LAURA, [address] [facility], [place], [address], Patient education \cps-[email or web address]\CPS_PtEducation\[facility] _FALL_PREVENTION.pdf Medications Medication Instructions Start Stop Generic Name NDC Provider Date Date NORCO 5-325 MG Take 1 tablet HYDROCODONE-A [id number] Ashley TABS by mouth every CETAMINOPHEN [facility] 6 hours as SCHOOL LIBRARY MEDIA PROGRAM DIRECTOR-FINANCIAL DEALERS needed for pain ELIQUIS 5 MG 1 tablet daily / APIXABAN 58905429117 Ashley TABS 13 [place] SCHOOL LIBRARY MEDIA PROGRAM DIRECTOR-FINANCIAL DEALERS COREG 12.5 MG 1 tablet twice / CARVEDILOL 95827227829 Heidi TABS daily 17 Watson E COMMERCE RETAILER MULTIVITAMIN 1 tablet daily / MULTIPLE 08440013586 Heidi ADULT TABS 06 VITAMINS-MINE Watson E COMMERCE RETAILER RALS Conditions or Problems Problem Problem Onset Status Entry Provider Comment Standard Annotate Name Code Date Date Description Other 948029551 Active Ashley Surgical specified (SNOMED CT) 10/14 10/14 [place] follow-up aftercare SCHOOL LIBRARY MEDIA PROGRAM DIRECTOR-FINANCIAL DEALERS following surgery HNP 258460157 Active Ashley Prolapsed (herniated (SNOMED CT) 05/07 05/07 [facility] lumbar nucleus SCHOOL LIBRARY MEDIA PROGRAM DIRECTOR-FINANCIAL DEALERS intervertebral pulposus), disc lumbar Lumbar 46775399 Active Rabia Whitehead Degeneration of Severe degenerativ (SNOMED CT) 04/27 04/27 [place] lumbar multilevel e disc SCHOOL LIBRARY MEDIA PROGRAM DIRECTOR-FINANCIAL DEALERS intervertebral disease disc Lumbar 58364412606 Active Rabia Whitehead Neurogenic stenosis 9102 04/27 04/27 [place] claudication with (SNOMED CT) SCHOOL LIBRARY MEDIA PROGRAM DIRECTOR-FINANCIAL DEALERS co-occurrent neurogenic and due to claudicatio spinal stenosis n of lumbar region Allergies, Adverse Reactions, Alerts Allergy Name Reaction Start Date Severity Status Provider Description BACTRIM rash Critical Active Heidi Watson (SULFAMETHOXAZ E COMMERCE RETAILER OLE-TRIMETHOPR IM) Social History No information available. Vital Signs Date Name Value Unit Description BMI (Body Mass 31.49 kg/m2 Body Mass Index Index) [Ratio] Preliminary vital sign data, not yet signed by the author as of BP Diastolic 80 mm[Hg] blood pressure, diastolic Preliminary vital sign data, not yet signed by the author as of BP Systolic 136 mm[Hg] blood pressure, systolic Preliminary vital sign data, not yet signed by the author as of Heart Rate 71 /min pulse rate E&M Preliminary vital sign [...] Range Flag Description Office Visit: Postop - subsequent visit, Rm: 30 MEDS REVIEW Done Documentation of current medications (procedure) Preliminary observation data, not yet signed by the author as of Preliminary observation data, not yet signed by the author as of Clinical Summary: [facility] account number Office Visit: Postop - 1st visit, Rm: 31 MEDS REVIEW Done Documentation of current medications (procedure) Clinical Summary: [facility] account number Procedures Code Procedure Name Date Entry Date G8730 Pain assessment documented as positive - follow-up documented G8427 Current medications documented 1036F Tobacco screening was negative - non user G8417 BMI documented as above normal parameters - follow-up documented G8783 Blood pressure within normal parameters - no follow-up required 1100F Fallen more than twice or injured themselves from a fall documented 3288F Falls risk assessment documented 0518F Falls plan of care documented [id number] Patient Encounter Medications Administered No information available. [...]
--- OUTSIDE RECORDS SUMMARY | 2018-10-02 22:37 | XMS RPT_ITS ---
:1950 Author Organization [facility] Address [address] [place] [address] Phone Care Team Providers Name Role Phone Kian Mcneill DO Unavailable Reason for Visit Reason For Visit Description Start Date Test Result Preliminary reason for visit data, not yet [...] Plan of Care Type Date Detail Appointment 08:30 AM Kian Mcneill DO, [address] [place], [address], Appointment 01:00 PM Ashley Whitehead SAP SECURITY ARCHITECT-SAMPLE FINISHER, [address], [address], Patient education \cps-[email or web address]\CPS_PtEducation\CDC _FALL_PREVENTION.pdf Medications Medication Instructions Start Stop Generic Name NDC Provider Date Date XARELTO 20 MG 1 tablet daily / RIVAROXABAN [id number] Heidi TABS 17 Watson WOVEN LABEL DESIGNER COREG 12.5 MG 1 tablet twice / CARVEDILOL 64779110522 Heidi TABS daily 17 Watson WOVEN LABEL DESIGNER ALEVE 220 MG as directed as / NAPROXEN 22699877260 Heidi TABS needed 17 SODIUM Watson WOVEN LABEL DESIGNER MULTIVITAMIN 1 tablet daily 2012 37481430357 Heidi ADULT TABS 06 VITAMINS-PROBATE LAWYER Watson ALS WOVEN LABEL DESIGNER Conditions or Problems Problem Problem Onset Status Entry Provider Comment Standard Annotate Name Code Date Date Description HNP 759610080 Active Ashley Prolapsed (herniated (SNOMED CT) 05/07 05/07 [place] lumbar nucleus SAP SECURITY ARCHITECT-SAMPLE FINISHER intervertebral pulposus), disc lumbar Lumbar 44961466 Active Rabia Whitehead Degeneration of Severe degenerativ (SNOMED CT) 04/27 04/27 [place] lumbar multilevel e disc SAP SECURITY ARCHITECT-SAMPLE FINISHER intervertebral disease disc Lumbar 53781159135 Active Rabia Whitehead Neurogenic stenosis 9102 04/27 04/27 [place] claudication with (SNOMED CT) SAP SECURITY ARCHITECT-SAMPLE FINISHER co-occurrent neurogenic and due to claudicatio spinal stenosis n of lumbar region Allergies, Adverse Reactions, Alerts Allergy Name Reaction Start Date Severity Status Provider Description BACTRIM rash Critical Active Heidi Watson (SULFAMETHOXAZ WOVEN LABEL DESIGNER OLE-TRIMETHOPR IM) Social History No information available. Vital Signs Date Name Value Unit Description BMI (Body Mass 31.49 kg/m2 Body Mass Index Index) [Ratio] Preliminary vital sign data, not yet signed by the author as of BP Diastolic 74 mm[Hg] blood pressure, diastolic Preliminary vital sign data, not yet signed by the author as of BP Systolic 116 mm[Hg] blood pressure, systolic Preliminary vital sign data, not yet signed by the author as of Heart Rate 56 /min pulse rate E&M Preliminary vital sign [...] Value Unit Range Flag Description Office Visit: Test Result, Rm: 40 MEDS REVIEW Done Documentation of current medications (procedure) Preliminary observation data, not yet signed by the author as of Preliminary observation data, not yet signed by the author as of XRAY HX of the lumbar on xray history 04/27/2018 at [facility] Preliminary observation data, not yet signed by the author as of MRI HX of the lumbar on MRI (magnetic 05/01/2018 at [facility] resonance imaging) history Preliminary observation data, not yet signed by the author as of Clinical Summary: [facility] OOP account number Procedures Code Procedure Name Date Entry Date L0641 BASIC LUMBAR SUPPORT (BREG) Medications Administered No information available. Immunizations No [...]
--- OUTSIDE RECORDS SUMMARY | 2018-10-02 22:37 | XMS RPT_ITS | Clinical Summary ---
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) use (ICD-10-CM 11/13 11/13 Richy (current) use of ) RN of anticoagulant anticoagulants s Essential I10 Active Janene Mcmillan Essential (primary) (ICD-10-CM 11/13 11/13 Richy (primary) hypertension ) RN hypertension Paroxysmal 332636512 Active Janene Mcmillan Paroxysmal atrial (SNOMED 11/13 11/[address]) RN fibrillation Medications Medication Instructions Start Stop Generic Name ND Provider Date Date COREG 6.25 MG One tablet by / CARVEDILOL 78864471155 Reji Garcia TABS mouth twice 08 Amanda CARL daily ASPIRIN EC 81 MG One tablet by / ASPIRIN 85146798652 Janene Mcmillan TBEC mouth daily 08 Richy PORTER ASPIRIN EC 81 MG One tablet by ASPIRIN 92464385957 Reji Garcia TBEC mouth daily Amanda CARL NAPROXEN SODIUM One tablet by / NAPROXEN 54532213517 Janene Mcmillan 220 MG TABS mouth twice 08 SODIUM Richy RN daily CARVEDILOL 3.125 One tablet by / CARVEDILOL 98288818324 Janene K MG TABS mouth twice 08 Richy RN daily XARELTO 20 MG One tablet by / RIVAROXABAN 02532678024 Janene K TABS mouth daily 08 Richy PORTER MULTIVITAMINS One tablet by / MULTIPLE Janene K TABS mouth daily 08 VITAMIN Richy PORTER VITAMIN C 1000 One tablet by / ASCORBIC ACID 94511131453 Reji F MG TABS mouth daily 09 Amanda CARL NAPROXEN SODIUM Two tablets by / NAPROXEN 79002023154 Reji F 220 MG TABS mouth daily 08 SODIUM Amanda CARL Medications Administered No information available. Allergies, Adverse Reactions, Alerts Allergy Name Reaction Description Start Date Severity Status Provider SULFAMETHOXAZOLE rash Moderate Active Janene Lockhart RN Results Date Name Value Unit Range Flag Description Clinical Lists Update: Preload SMOK STATUS Never smoker Tobacco use [facility] Office Visit DIET ORTHODONTIC ASSISTANT yes Dietary management education, guidance, and counseling (procedure) MEDS REVIEW Done Documentation of current medications (procedure) Replaced Document: [facility]mark ECG Observations EKG [...] INTERVAL new path ms QT interval, electrocardiogram [place] INTERVAL 142 ms [place] interval, electrocardiogram EKGHRTRATE 61 BPM heart rate on electrocardiogram Lab Report: CBC-Complete Blood Cnt No Diff MPV 10.8 fL 6.2-12.0 mean platelet volume PLATELETS 239 10*3/mm3 150-450 platelet count RDW-SD 46.8 fL 35.1-43.9 H red blood cell distribution width, size density RDW 13.8 % 11.6-14.6 red blood cell distribution width MCHC RBC 33.6 G/GL g/dL 32-36 mean corpuscular hemoglobin concentration, RBC MCH 32.1 pg 27.0-32.0 H mean corpuscular hemoglobin, RBC MCV 95.5 fL 80-94 H mean corpuscular volume, RBC HCT 46.4 % 40-54 hematocrit, blood HGB 15.6 g/dL 13.0-16.5 hemoglobin, blood RBC M/UL 4.86 10*6/uL 4.6-6.2 red blood count WBC BLOOD 7.2 10*9/L 4.4-11.0 leukocyte (white blood cells) count, blood Lab Report: Basic Metabolic Profile (BMP) ANION [...] 0.99 u[iU]/mL 0.358-3.74 thyroid stimulating hormone, serum Plan of Care Type Date Detail Appointment 03:00 PM TOMAS StricklandC, [address] [facility], [address], [place], [address], Pending order *CBC without Diff Pending order [...] 3 months Follow Up Appt 3 months CPT-74286 EKG (In office) NSTE Nuclear stress test -exercise 30507-1 *CBC without Diff 0667-1 *BMP 0788-1 *Hepatic Function Panel 60809-6 *Lipid Profile CC PCP 3026-2 *T4 (Total) 3016-3 *TSH CPT-18954 X-Ray, Chest, PA & Lateral Vital Signs Date Name Value Unit Description BMI (Body Mass Index) 31.46 kg/m2 Body Mass Index [Ratio] BP Diastolic 78 mm[Hg] blood pressure, diastolic - 8462-4 BP Systolic 142 mm[Hg] blood pressure, systolic - 8480-6 Heart Rate 64 /min pulse rate E&M - 8867-4 Height 72 [in_us] height E&M - 8302-2 Respiratory Rate 16 /min respiratory rate E&M - 9279-1 Weight Measured 232 [lb_av] weight E&M - 3141-9
--- OUTSIDE RECORDS SUMMARY | 2018-10-02 22:37 | XMS RPT_ITS ---
:1950 Author Organization [place] Care Team Providers Name Role Phone Adela Styles Attending Unavailable CHACORTALLA, LINDEN Primary Care Unavailable Reji aPtel Attending Unavailable Reji Patel Referring Unavailable ROMINAA, LINDEN Primary Care Unavailable Reji Patel Attending Unavailable Reji Patel Referring Unavailable Loren Degroot Attending Unavailable MoodReji lopez Attending Unavailable PETRILLA, LINDEN Referring Unavailable PETRILLA, LINDEN Primary Care Unavailable Sina Alvarado Attending Unavailable PETRILLA, LINDEN Referring Unavailable PETRILLA, LINDEN Primary Care Unavailable RAJIV GONGORA Attending Unavailable Adela Styles Attending Unavailable Adela Styles Referring Unavailable LINDEN VELÁZQUEZ Primary Care Unavailable PROBLEMS PROBLEMS DATE TYPE CONDITION / CODE ATTENDING STATUS SOURCE 08/14/2018 Unknown R30.0 - Dysuria / Adela Styles Active [place] R30.0(ICD-10) M [facility] Repository 08/19/2018 Unknown R10.30 - RAJIV Mcdonough Active [place] abdominal pain, Community unspecified / Hospital R10.30(ICD-10) Repository 07/13/2018 Unknown I48.0 - Paroxysmal RoofSina Active [place] atrial Community fibrillation / Hospital I48.0(ICD-10) Repository PROCEDURES PROCEDURES No Procedure Records FoundRESULTS RESULTS Observed: 08/14/2018 Status: F Source: [facility] CULTURE, URINE 12:00 AM [facility] REPOSITORY Urine Culture ORGANISM 1: Presumptive E. coli [place] Count >100,000 Presumptive E. coli: REACTION Amoxacillin/Clavulanic Acid $ <=2 S Ampicillin $ <=2 S Ampicillin/Sulbactam $ <=2 S Cefazolin $ <=4 S Cefepime $ <=1 S Ceftriaxone $ <=1 S Ciprofloxacin $ <=0.25 S ESBL - Ertapenim $$$ <=0.5 S Gentamicin $ <=1 S Imipenem *NF <=0.25 S Levofloxacin $ <=0.12 S Nitrofurantoin $ 64 I Piperacillin/Tazobactam $$ <=4 S Tobramycin $ <=1 S Trimethoprim/Sulfametho $ <=20 S (NF) indicates non-formulary drug at [facility]. Approval by Infectious Disease Specialist required before non-formulary drugs may be ordered and/or dispensed. Performed By: #### M100.0650 #### [facility] [address] [place], [address] EMERGENCY DEPARTMENT Observed: 08/09/2018 Status: F Source: NU [facility]INE SUMMARY 10:33 PM [facility] REPOSITORY [facility] Medical Records Department [address] [place] [address] Emergency Department Summary 08/09/18 0718 MR#: [id number] Acct: [id number] Name: JEFFERSON BARRETO Rep #: [id number] : 1950 68 From: Rajiv Gongora MD PCP: Linden Velázquez, DO Status: DEP ER History of Present Illness Informant: Patient, Significant Other Narrative: Patient presenting with abdominal discomfort and significant pain throughout his lower abdomen, with distention, nausea, vomiting. He has not had a bowel movement in 1 week, and just had back surgery for spinal stenosis 5 days ago. He usually has a daily bowel movement. He has been having weakness and numbness in his legs that are slightly better since his surgery that was performed by Dr. Yates at [facility] in [place]. His back is not bothering him very much at all. He is taking oral narcotic pain medication. He was discharged from the hospital last night just about 14-15 hours ago. He states over the past 2 days or so, he has been having symptoms of urinary retention and stress incontinence, and has not been able to have a bowel movement despite lots of stool softeners, laxatives, MiraLAX, enemas. Since having the urinary symptoms his abdominal discomfort has been much worse. 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 He states today he notices that he has perineal numbness, which is new. He was on Xarelto prior to the surgery for chronic paroxysmal A. fib, he is symptomatic when in atrial fibrillation and has had none of that recently, and is supposed to go back on Eliquis afterwards for insurance reasons, but at this time is not taking any anticoagulants. <Rajiv Gongora - Last Filed: 08/09/18 07:51> <Forrest Lawrence - Last Filed: 08/09/18 09:24> Chief Complaint: Abd Pain - Past Medical History (1) Spinal stenosis Status: Chronic (2) Paroxysmal atrial fibrillation Status: Chronic (3) Hypertension Status: Chronic <Rajiv Gongora - Last Filed: 08/09/18 07:51> Past Medical History Surgical History: - - Ankle and foot fusion Lives: Spouse/ Significant Other Smoking Status: Never smoker - Family History Maternal Family History: Family History (Last Updated 02/27/18 @ 07:15 by Loren Degroot) Mother CVA (cerebral vascular accident) Hypertension Brother Diabetes Family History: Reports: Stroke Paternal Family History: Family History (Last Updated 02/27/18 @ 07:15 by Loren Degroot) Mother CVA (cerebral vascular accident) Hypertension Brother Diabetes Family History: Reports: No pertinent history <Rajiv Gongora - Last Filed: 08/09/18 07:51> - Family History Maternal Family History: Family History (Last Updated 02/27/18 @ 07:15 by Loren Degroot) Mother CVA (cerebral vascular accident) Hypertension Brother Diabetes Paternal Family History: Family History (Last Updated 02/27/18 @ 07:15 by Loren Degroot) Mother CVA (cerebral vascular accident) Hypertension Brother Diabetes <Forrest Lawrence - Last Filed: 08/09/18 09:24> - Allergies and Home Meds Allergies/Adverse Reactions: Allergies sulfamethoxazole [From Bactrim] Allergy (Verified 08/09/18 06:24) Hives trimethoprim [From Bactrim] Allergy (Verified 07/13/18 11:06) Hives oxycodone Adverse Reaction (Verified 08/09/18 06:25) Other Primary Care Physician: Linden Velázquez [Primary Care Provider] - 3-5 Days Jack Sanders MD [STAFF PHYSICIAN] - 3-5 Days Review of Systems General: Denies: Chills, Fever, Sweats Eyes: Denies: Visual changes - bilaterally, Diplopia ENT: Denies: Rhinorrhea, Sore throat Cardiovascular: Denies: Chest pain, Palpitations Respiratory: Denies: Dyspnea, Cough, Dyspnea on exertion Gastrointestinal: Reports: Abdominal pain, Nausea, Vomiting, Constipation. Denies: Diarrhea, Melena, Hematochezia Genitourinary: Reports: Frequency, - - retention. stress incontinence when stands up especially.. Denies: Dysuria, Hematuria Musculoskeletal: Reports: Back pain - mild, improved. Denies: Neck pain, Swelling, Extremity Pain Skin: Reports: Wounds - surgical back wound, decreased drainage. Denies: Rash Neurological: Denies: Headache, Weakness, Numbness Endocrine: Denies: Polyuria, Polydipsia Allergy: Denies: Swelling of the mouth, Swelling of the tongue <Rajiv Gongora - Last Filed: 08/09/18 07:51> Physical Exam Vital Signs/Narrative: Vital Signs 08/09/18 06:18 97.8 F 78 15 171/93 H 93 Inital Vital Signs reviewed: Yes General: Well nourished, Well developed, - - NAD Head: Normocephalic, Atraumatic Eyes: Perrl, EOMI ENT: Moist mucous membranes, No rhinorrhea Neck: Supple, Nontender Cardiovascular: Regular rate, Regular rhythm, No murmurs Respiratory: No distress, CTA bilaterally, Chest nontender Abdomen: Soft, Tender - throughout lower abd, Hypoactive bowel sounds, Umbilical hernia - nontender, not erythemetous, reducible termporarily, - - distended. Negative for: Guarding, Rebound tenderness Back: Nontender, Normal Inspection Extremities: Nontender, No edema Skin: Normal color, No rash, - - no lumbar surgical incision dehiscence or signs of infection Neurological: Alert, Oriented x3, Cranial nerves II-XII grossly intact, Normal Strength, Normal Sensation Psychological: Normal affect <Rajiv Gongora - Last Filed: 08/09/18 07:51> Vital Signs/Narrative: Vital Signs 08/09/18 08:24 758 H 18 157/82 H 100 08/09/18 06:18 97.8 F 78 15 171/93 H 93 <Forrest Lawrence - Last Filed: 08/09/18 09:24> Diagnostic/Tx/Re-eval - Medical Decision Making Seen shortly before shift change. Differential diagnosis includes ileus that has yet to resolve versus constipation causing urinary retention, or mechanical obstruction. Labs, urinalysis, CT ordered along with a postvoid residual to see if he needs relief from urinary retention. <Rajiv Gongora - Last Filed: 08/09/18 07:51> - Medical Decision Making Lab workup shows a 16,000 white count. Normal hemoglobin. Electrolytes are unremarkable. UA was normal. The nurses did a bladder scan it was over thousand cc. They have placed a Barrett catheter which had 1700 cc of clear yellow urine out. Patient had immediate relief. Barrett catheter is in place. CT abdomen and pelvis done shows stool and otherwise unremarkable chronic changes. No signs of obstruction. No perforation. There is an incidental finding of a stone in his kidney. On multiple repeat exams patient is doing very well. His abdomen is benign. I have gone over all test results of both he and his . They are comfortable with him being discharged home with a Barrett catheter in place. He will either follow-up with his primary care physician or the urologist on-call for removal of the Barrett and repeat evaluation. Magnesium citrate for constipation. Impressions: 1. Acute urinary retention 2. Acute constipation 3. Status post recent back surgery <Forrest Lawrence - Last Filed: 08/09/18 09:24> ED Disposition <Rajiv Gongora - Last Filed: 08/09/18 07:51> <Forrest Lawrence - Last Filed: 08/09/18 09:24> - Plan for ED Patient: Disposition: Home or Assisted Living Chief Complaint: Abd Pain Instructions: ED Constipation, ED Retention Urinary Male Referrals: Linden Velázquez [Primary Care Provider] - 3-5 Days Jack Sanders MD [STAFF PHYSICIAN] - 3-5 Days Additional Instructions: Follow-up with your primary care physician or Dr. Sanders of Urology to have the Barrett catheter removed. Magnesium citrate for constipation along with plenty of water, fruits, vegetables and fiber. What to do if you have Problems For any increased pain, shortness of breath, bleeding, nausea or vomiting, chest pain, or any unexpected problems, contact your Primary Care Provider. Call [email or web address] Registry ([phone]) or report to the closest Emergency Room. Call 911 if necessary. 08/09/18 2233 <Electronically signed by Rajiv Gongora MD> Date Rajiv Gongora MD 08/09/18 1637<Electronically signed by Forrest Lawrence MD> Cosigner Signature (If Indicated): Date Forrest Lawrence MD CC: Linden Velázquez DO DISCHARGE INSTRUCTION Observed: 08/09/2018 Status: F Source: NU MINE 4:37 PM [facility] REPOSITORY [facility] Medical Records Department [address] [place] [address] Discharge Instruction 08/09/18 0835 MR#: [id number] Acct: [id number] Name: JEFFERSON BARRETO Rep #: [id number] : 1950 68 From: Forrest Lawrence MD PCP: Linden Velázquez DO Status: DEP ER ED Disposition - Plan for ED Patient: Disposition: Home or Assisted Living Chief Complaint: Abd Pain Instructions: ED Constipation, ED Retention Urinary Male Referrals: Linden Velázquez [Primary Care Provider] - 3-5 Days Jack Sanders MD [STAFF PHYSICIAN] - 3-5 Days Additional Instructions: Follow-up with your primary care physician or Dr. Sanders of Urology to have the Barrett catheter removed. Magnesium citrate for constipation along with plenty of water, fruits, vegetables and fiber. What to do if you have Problems For any increased pain, shortness of breath, bleeding, nausea or vomiting, chest pain, or any unexpected problems, contact your Primary Care Provider. Call [facility] ([phone]) or report to the closest Emergency Room. Call 911 if necessary. 08/09/18 5687 <Electronically signed by Forrest Lawrence MD> Date Forrest Lawrence MD Cosigner Signature (If Indicated): Date CC: Linden Velázquez DO URINALYSIS, COMPLETE Collected: 08/09/2018 Status: F Source: [place] 8:05 AM [facility] REPOSITORY Order Comment: Order Date: 08/09/18 How was Urine Obtained? CURATORIAL ASSISTANT TO SPECIFY TYPE CODE TESTS RESULT OUT OF RANGE REFERENCE UNITS LAB L400.3000 Yellow COLOR Normal Yellow LAB L400.3050 Clear Normal CLARITY Clear LAB L400.3200 Normal mg/dl Normal GLUCOSE, UR Normal LAB L400.3300 Negative mg/dL Normal BILIRUBIN URINE Negative LAB L400.3400 Negative mg/dl Normal KETONE UR Negative LAB L400.3465 1.002-1.030 Normal SP.GR. DIPSTX 1.015 LAB L400.3550 5.0 - 8.0 pH UR Normal 6.0 LAB L400.3600 Negative mg/dl PROT Normal DIPSTX Negative LAB L400.3700 Normal mg/dl Normal UROBILI Normal LAB L400.3750 Negative Normal NITRITE UR Negative LAB L400.3780 Negative /ul High OCCULT BLOOD-UR 150 LAB L400.3800 Negative /ul LEUK Normal ESTERASE Negative LAB L400.4050 0-5 /hpf WBC 0 Normal SEEN LAB L400.4100 0-5 /hpf 0 Normal RBC-UA SEEN LAB L400.4150 0-5 /hpf SQUAM 0 Normal EPI SEEN LAB L400.4300 None Seen /hpf 0 Normal BACTERIA SEEN LAB L400.4350 <or=2+ /hpf 0 Normal MUCUS, URINE SEEN Performed By: #### L400.0001 #### [facility] [address] [place], [address] CBC W/DIFF, AUTOMATED Collected: 08/09/2018 Status: C Source: [place] 7:45 AM [facility] REPOSITORY TYPE CODE TESTS RESULT OUT OF RANGE REFERENCE UNITS LAB L100.1000 4.4-11.0 K/mm3 High WBC 16.6 LAB L100.1200 4.6-6.2 M/mm3 Low RBC 4.06 LAB L100.1300 13.0-16.5 g/dl Normal HGB 13.2 LAB L100.1400 40-54 % Low HCT 39.1 LAB L100.1500 80-94 fL High MCV 96.3 LAB L100.1600 27.0-32.0 pg High MCH 32.5 LAB L100.1700 32-36 g/gl Normal MCHC 33.8 LAB L100.1810 11.6-14.6 % Normal RDW CV 13.7 LAB L100.1820 35.1-43.9 fl High RDW SD 47.4 LAB L100.1900 150-450 K/mm3 Normal PLT 196 LAB L100.2000 6.2-12.0 fl Normal MPV 10.8 LAB L100.2100 47-70 % High NEUT% 82.3 LAB L100.2200 19-41 % Low LY% 8.1 LAB L100.2300 0-10 % Normal MONO% 9.3 LAB L100.2400 0-5 % Normal EO% 0.1 LAB L100.2500 0-1 % Normal BASO% 0.1 LAB L100.2550 0.0-0.9 % Normal IM GRAN % 0.100 Result Comment: IG% - Immature Granulocytes (promyelocytes, myelocytes and metamyelocytes) > 1% indicates that a LEFT SHIFT is Present. LAB L100.2620 2.0-7.7 X10 3/uL High Absolute Neut 13.6 LAB L100.2720 0.83-4.51 X10 3/ul Normal Absolute Lymph 1.34 LAB L100.9900 Normal PATH REV Reviewed Result Comment: Neutrophilic leukocytosis. Clinical correlation necessary. Chalino Inman M.D. 08/12/18 AMENDED REPORT 08/12/18 1329 PATH REV previously reported as: Reviewed Performed By: #### L100.0100 #### [facility] [address] [place], [address] COMPREHENSIVE METABOLIC Collected: 08/09/2018 Status: F Source: [facility] 7:45 AM [facility] REPOSITORY TYPE CODE TESTS RESULT OUT OF RANGE REFERENCE UNITS LAB L501.0100 74-106 mg/dL High GLU 161 Result Comment: Fasting Glucose result greater than or equal to 126 mg/dL suggests DIABETES MELLITUS per A.D.A. criteria. Please note revised GLUCOSE reference range effective 2017. LAB L501.1000 7-18 mg/dL Normal BUN 13 LAB L501.1100 0.70-1.30 mg/dL Normal CREAT,SERUM 0.75 Result Comment: The validity of the calculated GFR AND GFRAA in patients over 70 years has not been determined. Clinical correlation is essential. LAB L501.1110 >60 mL/min Normal EST GFR 111 Result Comment: Non- GFR Calc LAB L501.1115 >60 mL/min Normal EST GFR - AA 134 Result Comment: GFR Calc LAB L501.1255 ml/min Normal Estimated CRCL 78.68 LAB L501.1300 10-20 RATIO Normal BUN/CRE 17.4 LAB L501.1500 6.4-8. g/dL Normal 2 T PROT 7.1 LAB L501.1800 3.2-5. g/dL Normal 0 ALB 3.2 LAB L501.1950 2.2-4. g/dL Normal 2 GLOB 3.9 LAB L501.2000 0.9-2. RATIO Low 4 A/G 0.8 LAB L501.2200 8.5-10 mg/dL Normal .1 CA 8.8 LAB L501.4100 15-37 U/L Normal AST 18 LAB L501.4305 45-117 U/L Normal ALK P 50 LAB L501.4405 16-61 U/L Normal ALT 17 LAB L501.4600 0.20-1 mg/dL High .00 T BILI 1.50 LAB L501.5300 136-14 mmol/L Normal 5 NA 137 LAB L501.5600 3.5-5. mmol/L Normal 1 K 4.0 LAB L501.5900 98-107 mmol/L Low CL 97 LAB L501.6100 21.0-3 mmol/L Normal 2.0 CO2 32.0 LAB L501.6200 5-15 Normal GAP 8 Performed By: #### L500.4050 #### [facility] [address] [place], [address] ABDOMEN/PELVIS WITHOUT Observed: 08/09/2018 Status: F Source: [facility] CONT 7:18 AM [facility] REPOSITORY [facility] Imaging Services [address] [place] [address] Abdomen/Pelvis without Cont MR#: [id number] Acct: [id number] Name: JEFFERSON BARRETO Rep #: [id number] : 1950 M 68 From: Rica Lerner PCP: Linden Velázquez DO Status: REG ER Study: Abdomen/Pelvis without Cont Date of Exam: 08/09/18 Exam# [id number] Ordering Dr: Rajiv Gongora MD STUDY: CT ABDOMEN AND PELVIS WITHOUT CONTRAST REASON FOR EXAM: Male, 68 years old. LOW ABD PAIN, N/V, CONSTIPATION, URINARY FREQUENCY, URINARY PRESSURE-JUST PUT BARRETT IN AND PRESSURE IMPROVED, S/P LB SURG 3 DAYS AGO, HX-HTN, PE, A-FIB. RADIATION DOSAGE (If Supplied By Facility): CTDIvol = ( 18 ) mGy, DLP = ( 930.91 ) mGycm TECHNIQUE: Transaxial images were obtained from the dome of the diaphragm to the symphysis pubis without oral contrast, and without intravenous contrast. Sagittal and coronal images were reconstructed. Individualized dose optimization techniques were used for this CT. COMPARISON: None. FINDINGS: The visualized lung bases are unremarkable. The visualized portions of the heart are within normal limits. Normal liver. Normal gallbladder and extrahepatic biliary system. Normal spleen. Normal pancreas. Normal bilateral adrenal glands. There is minimal prominence of the bilateral collecting system with perinephric stranding. The urinary bladder is decompressed with a Barrett catheter. There is a 3 mm calcification at the right kidney. Normal visualized stomach. Normal small intestine. Normal colon. The appendix is visualized and appears normal. There is diffuse atherosclerotic calcification of the abdominal aorta, without a demonstrated aneurysm. Normal inferior vena cava. Normal retroperitoneum. The urinary bladder is decompressed with a Barrett catheter Normal abdominal wall. There are diffuse degenerative changes of the visualized lumbar spine. There is decompression laminectomy with surgical changes overlying the lower lumbar spine. CT/Abdomen/Pelvis without Cont IMPRESSION: Minimal hydroureteronephrosis with perinephric stranding. No ureteral stones. Laminectomy and surgical changes. Electronically Signed: Rica Lerner MD at 8:54 EST Tel , Service support , CC: RAJIV GONGORA MD; Linden Velázquez DO Education Department Registrar: Signed CARDIOLOGY VISIT Observed: 07/14/2018 Status: F Source: [facility] REPORT 7:20 AM [facility] REPOSITORY [facility] [address] [place] [address]. [address] [place] [address] OFFICE VISIT Date of Service: 07/13/18 MR#: [id number] Acct: [id number] Name: JEFFERSON BARRETO Rep #: [id number] : 1950 Provider: JUANITA Alvarado Age/Sex: 68/M Location[place] [facility] Status: Signed HPI HPI Details: JEFFERSON BARRETO, is a 68 M who presents to the office today for a cardiovascular outpatient follow-up. He has history of paroxysmal atrial fibrillation and hypertension. He denies any cheat pain, arm pain, jaw pain, neck pain. He denies any shortness of breath at rest. He denies any fevers or chills. He denies any blood in his urine or stool. He denies any myalgia. He denies any paroxysmal nocturnal dyspnea. He denies any lightheadedness, dizziness, presyncope, syncope, or palpitations. He continues to have leg pain and numbness. He is undergoing back surgery to help with pain and numbness sensation later this month. Intake Vital Signs07/13/18 Height 6 ft 07/13/18 Weight: 230 lb 07/13/18 Body Mass Index (BMI) 31.1 07/13/18 Blood Pressure 148/84 H 07/13/18 Blood Pressure Location Lt brachial Intake Visit Reasons: 6 M FU, also pre-op Supervisor Compressed Yeast Required: No Accompanied by: Is patient in pain?: No Allergies sulfamethoxazole [From Bactrim] Allergy (Verified 07/13/18 11:06) Hives trimethoprim [From Bactrim] Allergy (Verified 07/13/18 11:06) Hives Medications Multivitamin [Daily Multiple Vitamin] 1 ea PO DAILY 07/13/17 [History Confirmed 07/13/18] Naproxen Sodium 220 mg PO BID PRN PRN #0 07/15/17 [Rx Confirmed 07/13/18] carvedilol 25 mg tablet 12.5 mg PO BID #180 tab 03/02/18 [Rx Confirmed 07/13/18] carvedilol 6.25 mg tablet 6.25 mg PO .PRN #30 tab 03/02/18 [Rx Confirmed 07/13/18] rivaroxaban 20 mg tablet 20 mg PO DAILY #90 tab 06/08/18 [Rx Confirmed 07/13/18] aspirin 81 mg tablet,delayed release 81 mg PO DAILY 07/13/18 [History Confirmed 07/13/18] PFSH Medical History Hypertension (Chronic) Paroxysmal atrial fibrillation (Acute) Dyspnea on exertion (Acute) penitentiary current use of anticoagulant (Chronic) Atrial fibrillation with RVR (Acute) History of DVT (deep vein thrombosis) (Acute) History of pulmonary embolism (Acute) Surgical History History of carpal tunnel surgery (Resolved) History of ankle fusion (Resolved) History of foot surgery (Resolved) Family History Mother CVA (cerebral vascular accident) Hypertension Brother Diabetes Social History Smoking Status: Never smoker alcohol intake: never substance use type: does not use ROS Const Const: Negative for body ache, fever(s), chills, fatigue or weakness ENT ENT: Negative for dizziness Cardio Chest Pain: No Palpitations: No Edema: None Muscle aches with walking: None Resp Respiratory: Negative for SOB with activity, SOB at rest, SOB orthopnea\SOB lying down or paroxysmal nocturnal dyspnea GI GI: Negative nausea, black,tarry stools, bright, red blood in stools or vomiting blood/hematemesis : Negative for hematuria or frequent nighttime urination/ nocturia Musc Musc: Positive for joint pain; negative for muscle aches/ myalgia Skin Skin: Negative non-healing lesions or rash Neuro Neuro: Positive for other (leg numbness); negative for weakness, dizziness, lightheadedness, near syncope, syncope or orthostatic symptoms Endo Endo: Negative for fatigue Allergy Allergy/Immunology: Negative for rash Cardiology Exam Const Appearance: cooperative, healthy appearing, comfortable and no acute distress Nutritional Appearance: average body habitus and well nourished Orientation: alert, awake and oriented x3 Head Head: normal to inspection Ears: hearing grossly normal bilaterally Nose: external nose normal Face and Sinus: face symmetric Mouth: oral mucosae normal Eyes General: appearance normal, both eyes and all related structures Eyelids: eyelids normal EOM: EOM intact bilaterally Neck Neck: no JVD and normal visual inspection Carotids: normal carotid upstroke Chest Chest inspection: normal inspection of the chest and normal respiratory effort; negative cough Auscultation: Bilateral: Clear to Auscultation Cardio Rate: regular rate Rhythm: regular rhythm Heart sounds: S1 normal and S2 normal; negative rub, gallop or murmur GI GI: normal to inspection Neuro General: alert, awake, oriented x3 and CN's II-XI intact bilaterally Skin Skin: no rashes or lesions noted Extremities Pulses: Normal: Right Posterior Tibial Pulse, Left Posterior Tibial Pulse, Right Radial Pulse, Left Radial Pulse Lower Extremity Edema: None: Bilateral Psych Psychological: normal affect Supplemental Info He did have a transthoracic echocardiogram performed on 10/23/2016 at [facility]. At that time his left ventricle was normal with an LVEF of 65%, mild concentric LVH, mild left atrial enlargement, trivial TR, estimated RV systolic pressure 29 mmHg, and decreased diastolic compliance. He underwent an exercise tolerance test/imaging study on 12/19/2016 at [facility]. This was a combined exercise tolerance test and subsequently a pharmacologic stress nuclear imaging study. The results are as noted below. EXERCISE TOLERANCE TEST: The patient exercised on a Michael protocol for 30 seconds not completing stage 1, achieving a peak heart rate of 98 beats per minute (63% predicted maximum heart rate) and a peak blood pressure of 164/70 mmHg and a peak MET capacity of approximately 2 METS. The baseline ECG demonstrated sinus bradycardia. The peak exercise ECG demonstrated nonspecific ST and T-wave abnormality at the heart rate achieved. There were no cardiac dysrhythmias pretest, during exercise or recovery. The functional capacity was considered decreased. The patient had no complaint of chest discomfort during exercise or recovery. The examination was discontinued secondary to ankle/foot discomfort. IMPRESSION: 1. Technically inadequate (percent predicted maximum heart rate less than 85%) exercise tolerance test. 2. Peak exercise ECG with nonspecific ST and T-wave abnormality. 3. Pharmacologic (regadenoson) evaluation pending. The patient underwent pharmacologic (regadenoson) evaluation with a peak heart rate of 82 beats per minute (52% predicted maximum heart rate) and a peak blood pressure of 164/70 mmHg. The baseline ECG demonstrated sinus bradycardia. The peak pharmacologic ECG demonstrated no obvious ECG changes. There were no cardiac dysrhythmias pretest, during exercise, or recovery. There was no report of chest discomfort during pharmacologic infusion or recovery. The examination was discontinued secondary to completion of protocol. IMPRESSION: 1. Pharmacologic (regadenoson) evaluation. 2. Peak pharmacologic ECG with no obvious ECG changes. 3. Nuclear images pending. MYOCARDIAL PERFUSION IMAGING STUDY: TECHNIQUE: The patient was injected with 14.3 mCi of Tc99m Cardiolite and subsequently rest SPECT Cardiolite nuclear imaging was obtained in the horizontal long, vertical long and short axes views. The patient exercised on a Michael protocol for 30 seconds not completing stage 1, achieving a peak heart rate of 98 beats per minute (63% predicted maximum heart rate) and a peak blood pressure of 164/70 mmHg and a peak MET capacity approximately 2 METS. The patient subsequently underwent pharmacologic (regadenoson) evaluation with a peak heart rate of 82 beats per minute (52% predicted maximum heart rate) and a peak blood pressure of 164/70 mmHg. The patient was injected with 44.7 mCi of Tc99m Cardiolite and subsequently stress SPECT Cardiolite nuclear imaging was obtained in the horizontal long, vertical long and short axes views. A gated Cardiolite study at peak stress was obtained. INTERPRETATION: Rest and stress SPECT Cardiolite nuclear imaging status post realignment, normalization, and attenuation correction appears to demonstrate relative uniform tracer uptake and myocardial perfusion appearing within normal limits. There appears to be end systolic thickening and brightening. The gated Cardiolite study demonstrates myocardial thickening and inward wall motion. The reported LVEF is 68%. IMPRESSION: 1. Rest and stress SPECT Cardiolite nuclear imaging demonstrate relative uniform tracer uptake and myocardial perfusion appearing within normal limits. 2. The gated Cardiolite study reports an LVEF of 68%. Assessment AND Plan 1. Paroxysmal atrial fibrillation I48.0 Plan His EKG in office showed sinus rhythm without any acute changes at a rate of 61 bpm. Due to financial concerns he had to discontinue his factor Xa inhibitor. He states that he is planning on starting this medication September 2018. He does not appear to have any episodes of paroxysmal atrial fibrillation since last office visit. With his upcoming surgery he will need to be off of this medication prior to surgery. Thus, if there is any concerns related to his rhythm we will consider additional anticoagulation after surgery. His heart rate remains well controlled. Orders Orders: 2. penitentiary current use of anticoagulant Z79.01 Plan As noted above he is currently not taking anticoagulation due to financial concerns. We will begin this as soon as medically safe and affordable. 3. Essential hypertension I10 Plan His blood pressure is slightly elevated today in office. He states it is better controlled at home. At this time we will continue to monitor. Depending on overall monitoring, we can consider additional medication to help improve blood pressure if elevated. 4. Pre-operative cardiovascular examination Z01.810 Plan Patient is a he will be undergoing low back surgery later this month. From a cardiovascular standpoint he does not need any further testing. His stress test from December 2016 showed peak ECG with an ossific ST and T wave abnormality and nuclear images negative for stress-induced myocardial ischemia with ejection fraction of 60%. His echocardiogram from October 2016 showed ejection fraction 65%, mild concentric LVH, mild left atrial enlargement, and an RVSP of 29 mmHg with decreased diastolic compliance. He was reminded to continue with beta-turner before and morning of surgery. He was asked to refrain from starting factor Xa inhibitor. He was asked to touch base with the surgeon regarding aspirin therapy, but if no recommendations are made this should be held approximately 7-10 days prior to surgery. Plan Detail Additional Comments Thank you for allowing us to participate in the patient's plan of care, if you have any questions please do not hesitate to call. This note was generated using a voice recognition system and there may be incorrect words, spelling, or punctuation that were not noted upon reviewing the office note prior to saving. 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 current use of anticoagulant Z79.01 Essential hypertension I10 Hypertension type: essential hypertension Pre-operative cardiovascular examination Z01.810 Coding Level of Care Code Off vis,est,level 3 Diagnoses Paroxysmal atrial fibrillation I48.0 salvage determiner current use of anticoagulant Z79.01 Essential hypertension I10 Hypertension type: essential hypertension Pre-operative cardiovascular examination Z01.810 07/14/18 0720 <Electronically signed by Sina AYALAC> Date Sina Alvarado NP-C Cosigner Signature: Date (if applicable) CC: PHILIPP Velázquez; LOW YATES 12 LEAD EKG PERFORMED Observed: 07/13/2018 Status: F Source: [place] [facility] 11:08 AM [facility] RE[facility]IT[facility] [address] [place] [address] 12 Lead EKG performed by [facility] 07/13/18 1107 MR#: [id number] Acct: [id number] Name: JEFFERSON BARRETO Rep #: [id number] : 1950 68 From: Sina Alvarado NP-C Attending Dr: Sina Alvarado NP Status: DEP AMB Ordering Dr: Sina Alvarado Date: 07/13/18 [place] [facility] Sex: M C Admitted: BMS/12 Lead EKG performed by [facility] ECG Report Interpretation Sinus Rhythm Electronically signed on 07/13/2018 at 14:01 by Reji Patel Software Version [id number] 07/13/18 1405 Date Sina RUBIO CC: PHILIPP Velázquez Date Dictated: 07/13/181106 Date Transcribed: 07/13/181106 Education Department Registrar: CATRACHO Signed CARDIOLOGY VISIT Observed: 03/02/2018 Status: F Source: [facility] RE[facility] 11:45 AM [facility] RE[facility] [address] [place] [address] OFFICE VISIT Date of Service: 03/02/18 MR#: [id number] Acct: [id number] Name: JEFFERSON BARRETO Rep #: [id number] : 1950 Provider: Reji Patel MD Age/Sex: 67/M [place] [facility] Status: Signed HPI HPI Details: JEFFERSON BARRETO, is a 67 M who presents to the office today for for outpatient cardiovascular follow-up. He has episodes of paroxysmal atrial fibrillation. He states they may be occurring once per months or potentially less often. He notes they last for approximately 12 hours or less. He does not feel the best when they occur. He notes that otherwise he feels good. He has had no other concerning chest discomfort, difficulty breathing, near syncope or syncope. He states when his heart rate gets too low he does not feel the best. Thus he has decreased his beta-turner dose himself to 12.5 mg twice daily of his carvedilol/Coreg. He feels this is been a better balance for him. 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: No Is patient in pain?: No Allergies sulfamethoxazole [From Bactrim] Allergy (Verified 03/02/18 09:59) Hives trimethoprim [From Bactrim] Allergy (Verified 03/02/18 09:59) Hives Medications Multivitamin [Daily Multiple Vitamin] 1 ea PO DAILY 07/13/17 [History Confirmed 03/02/18] Rivaroxaban [Xarelto] 20 mg PO DAILY 07/13/17 [History Confirmed 03/02/18] Naproxen Sodium 220 mg PO BID PRN PRN #0 07/15/17 [Rx Confirmed 03/02/18] carvedilol 25 mg tablet 12.5 mg PO BID #180 tab 03/02/18 [Rx] carvedilol 6.25 mg tablet 6.25 mg PO .PRN #30 tab 03/02/18 [Rx Confirmed 03/02/18] Ejection fraction %: 65 to 70 PFSH Medical History Hypertension (Chronic) Paroxysmal atrial fibrillation (Acute) Dyspnea on exertion (Acute) penitentiary current use of anticoagulant (Chronic) Atrial fibrillation with RVR (Acute) History of DVT (deep vein thrombosis) (Acute) History of pulmonary embolism (Acute) Surgical History History of carpal tunnel surgery (Resolved) History of ankle fusion (Resolved) History of foot surgery (Resolved) Family History Mother CVA (cerebral vascular accident) Hypertension Brother Diabetes Social History Smoking Status: Never smoker alcohol intake: never substance use type: does not use ROS Const Const: Positive for fatigue and weakness (complaining of weakness); negative for night sweats, excessive sweating, frequent falls, headache(s) or daytime sleepiness Eyes Eyes: Negative for loss of peripheral vision, transient loss of vision, blind spots, double vision or blurry vision ENT ENT: Positive for dizziness (when standing up); negative for headache(s), balance problems, Nosebleed/epistaxis, tongue swelling or lip swelling Cardio Chest Pain: No Palpitations: Yes (occasional) Edema: None Muscle aches with walking: None Resp Respiratory: Negative for SOB at rest, SOB orthopnea\SOB lying down, Cough, paroxysmal nocturnal dyspnea or SOB with activity GI GI: Negative nausea, vomiting, heartburn, black,tarry stools or bright, red blood in stools : Negative for hematuria Musc Musc: Positive for muscle weakness; negative for balance problems, muscle aches/ myalgia or joint pain Skin Skin: Negative non-healing lesions, unusual bruising or rash Neuro Neuro: Positive for dizziness (when standing up) and weakness (complaining of weakness); negative for frequent falls, headache(s), double vision, lightheadedness, orthostatic symptoms, blurry vision or lack of coordination Sean Hematologic/Lymphatic: Negative for easy bruising or easy bleeding Endo Endo: Positive for fatigue; negative for excessive sweating, cold intolerance, heat intolerance, increased thirst/drinking or hair loss Psych Psych: Negative for anxiety or depression Allergy Allergy/Immunology: Negative for throat swelling, Negative for tongue swelling, Negative for hives, Negative for rash, Negative for lip swelling Cardiology Exam Const Appearance: cooperative, healthy appearing, comfortable, no acute distress, well developed and well groomed Nutritional Appearance: overweight Orientation: alert, awake and oriented x3 Limitations: altered mental status Head Head: normal to inspection, normocephalic and atraumatic Ears: hearing grossly normal bilaterally Nose: external nose normal Mouth: oral mucosae normal Teeth and gingiva: fair dentition Eyes Eyelids: eyelids normal Conjunctivae: conjunctivae normal Pupils: PERRL EOM: EOM intact bilaterally Neck Neck: normal visual inspection and full ROM Carotids: normal carotid upstroke Chest Chest inspection: normal inspection of the chest and symmetric chest movement Auscultation: Bilateral: Clear to Auscultation Cardio Palpation: normal PMI Rate: regular rate Rhythm: regular rhythm Heart sounds: S1 normal and S2 normal GI GI: normal to inspection, bowel sounds present, soft and no hepatosplenomegaly Neuro General: alert, awake, oriented x3, gait normal, moves all extremities, no focal sensory deficit and no focal motor deficits Extremities Pulses: Normal: Right Radial Pulse, Left Radial Pulse Lower Extremity Edema: None: Bilateral Psych Psychological: normal affect Supplemental Info He did have a transthoracic echocardiogram performed on 10/23/2016 at [facility]. At that time his left ventricle was normal with an LVEF of 65%, mild concentric LVH, mild left atrial enlargement, trivial TR, estimated RV systolic pressure 29 mmHg, and decreased diastolic compliance. He underwent an exercise tolerance test/imaging study on 12/19/2016 at [facility]. This was a combined exercise tolerance test and subsequently a pharmacologic stress nuclear imaging study. The results are as noted below. EXERCISE TOLERANCE TEST: The patient exercised on a Michael protocol for 30 seconds not completing stage 1, achieving a peak heart rate of 98 beats per minute (63% predicted maximum heart rate) and a peak blood pressure of 164/70 mmHg and a peak MET capacity of approximately 2 METS. The baseline ECG demonstrated sinus bradycardia. The peak exercise ECG demonstrated nonspecific ST and T-wave abnormality at the heart rate achieved. There were no cardiac dysrhythmias pretest, during exercise or recovery. The functional capacity was considered decreased. The patient had no complaint of chest discomfort during exercise or recovery. The examination was discontinued secondary to ankle/foot discomfort. IMPRESSION: 1. Technically inadequate (percent predicted maximum heart rate less than 85%) exercise tolerance test. 2. Peak exercise ECG with nonspecific ST and T-wave abnormality. 3. Pharmacologic (regadenoson) evaluation pending. The patient underwent pharmacologic (regadenoson) evaluation with a peak heart rate of 82 beats per minute (52% predicted maximum heart rate) and a peak blood pressure of 164/70 mmHg. The baseline ECG demonstrated sinus bradycardia. The peak pharmacologic ECG demonstrated no obvious ECG changes. There were no cardiac dysrhythmias pretest, during exercise, or recovery. There was no report of chest discomfort during pharmacologic infusion or recovery. The examination was discontinued secondary to completion of protocol. IMPRESSION: 1. Pharmacologic (regadenoson) evaluation. 2. Peak pharmacologic ECG with no obvious ECG changes. 3. Nuclear images pending. MYOCARDIAL PERFUSION IMAGING STUDY: TECHNIQUE: The patient was injected with 14.3 mCi of Tc99m Cardiolite and subsequently rest SPECT Cardiolite nuclear imaging was obtained in the horizontal long, vertical long and short axes views. The patient exercised on a Michael protocol for 30 seconds not completing stage 1, achieving a peak heart rate of 98 beats per minute (63% predicted maximum heart rate) and a peak blood pressure of 164/70 mmHg and a peak MET capacity approximately 2 METS. The patient subsequently underwent pharmacologic (regadenoson) evaluation with a peak heart rate of 82 beats per minute (52% predicted maximum heart rate) and a peak blood pressure of 164/70 mmHg. The patient was injected with 44.7 mCi of Tc99m Cardiolite and subsequently stress SPECT Cardiolite nuclear imaging was obtained in the horizontal long, vertical long and short axes views. A gated Cardiolite study at peak stress was obtained. INTERPRETATION: Rest and stress SPECT Cardiolite nuclear imaging status post realignment, normalization, and attenuation correction appears to demonstrate relative uniform tracer uptake and myocardial perfusion appearing within normal limits. There appears to be end systolic thickening and brightening. The gated Cardiolite study demonstrates myocardial thickening and inward wall motion. The reported LVEF is 68%. IMPRESSION: 1. Rest and stress SPECT Cardiolite nuclear imaging demonstrate relative uniform tracer uptake and myocardial perfusion appearing within normal limits. 2. The gated Cardiolite study reports an LVEF of 68%. Assessment AND Plan 1. Paroxysmal atrial fibrillation I48.0 Plan At the present time he will continue conservative medical management. He will continue his rate control therapy with respect to his carvedilol/Coreg 12.5 mg twice daily. He will be allowed to use her feet all/Coreg at 6.25 mg as needed his paroxysmal atrial fibrillation events to assist with rate control. He will continue anticoagulant therapy. If over time there are concerns regarding not tolerating medications with respect to rate controlled for concerns of bradycardia dysrhythmias as well as still episodes of tachycardia dysrhythmias and perhaps he needs to be considered for an antiarrhythmic agent to assist with rhythm regulation. He may need to be considered at some point in time for EP evaluation for possible EPS/RFA. If over time there are still concerns about not tolerating beta-blockers based upon bradycardia dysrhythmias and associated events that he may need to be considered for permanent pacemaker support. All these options were discussed with the patient and his spouse. 2. salvage determiner current use of anticoagulant Z79.01 Plan Again he will continue medical management and follow-up as deemed appropriate. 3. Essential hypertension I10 Plan His blood pressure appears to be recently well controlled today. He will continue medical therapy and follow-up. Plan Detail Other Medications New: Changed: Additional Comments He will be scheduled for an outpatient visit in approximately 6 months unless needed sooner. Thank you for allowing me to participate in the care of your patient. Please don't hesitate to call if any issues arise. This note was generated using a voice recognition system and there may be incorrect words, spelling or punctuation that were not noted when reviewing the office note prior to saving. Follow Up 6 Months Coding Level of Care Code Off vis,est,level 3 Diagnoses Paroxysmal atrial fibrillation I48.0 penitentiary current use of anticoagulant Z79.01 Essential hypertension I10 Hypertension type: essential hypertension Coding Level of Care Code Off vis,est,level 3 Diagnoses Paroxysmal atrial fibrillation I48.0 penitentiary current use of anticoagulant Z79.01 Essential hypertension I10 Hypertension type: essential hypertension 03/02/18 1145 <Electronically signed by Reji Patel MD> Date Reji Patel MD Cosigner Signature: Date (if applicable) CC: LINDEN VELÁZQUEZ ALLERGIES ALLERGIES DATE TYPE / CODE NAME / CODE REACTION SEVERITY SOURCE 08/09/2018 Drug oxycodone/F0 Other Unknown [facility] Allergy/4160 [id number](N [facility] 14253(SNOMED ORM) Repository CT) 08/09/2018 Drug sulfamethoxa Hives Unknown [facility] Allergy/4160 zole/[id number] Hospital 46506(SNOMED 827(RXNORM) Repository CT) 07/13/2018 Drug trimethoprim Hives Unknown [facility] Allergy/4160 /[id number]( Hospital 16626(SNOMED RXNORM) Repository CT) ENCOUNTERS ENCOUNTERS ADMIT/DISCHARGE ACCOUNT ADMITTING ENCOUNTER LOCATION SOURCE NUMBER [facility] 08/20/2018 [id number] Ambulatory [facility] [place] 1 [facility] ing:LAB.FUTUR Repository E 08/14/2018 [id number] Ambulatory [place] 4 [facility] ing:LABSPEC Repository 08/09/2018/ [id number] Emergency [place] 8 0 [facility] ing:ED Repository 07/13/2018/ [id number] Ambulatory BMSBuilding:B [place] [address] [facility] Repository 03/02/2018/ [id number] Ambulatory BMSBuilding:B [place] [address] [facility] Repository 02/27/2018 [id number] Ambulatory BMSBuilding:B [place] [address] [facility] Repository 10/15/2017 [id number] Ambulatory [place] 1 [facility] ing:PSN Repository 10/15/2017 [id number] Ambulatory BMSBuilding:W [place] 9 [facility] Repository PAYERS PAYERS ENCOUNTER GUARANTOR PAYER SUBSCRIBER SOURCE 08/20/2018 JEFFERSON A Primary JEFFERSON A [place] [id number] Insurance:MEDICARE DOTTERERDOB: Community SUSSY PART A [facility] [id number] Number[place] Repository [id number]: 330 [id number] [phone] () Date:2018-08-20 08/20/2018 Secondary JEFFERSON A [place] Insurance:AETNA SR DOTTERERDOB: Community [facility] [id number] Hospital Number: Repository [id number] Date:[id number] SENIOR SUPPLEMENT [address] [place] [phone]: 08/20/2018 Tertiary NOT GIVENUNK [place] Insurance:SELF PAY [facility] Number: Effective Repository Date:2018-08-20 08/14/2018 JEFFERSON A Primary JEFFERSON A [place] [id number] Insurance:MEDICARE DOTTERERDOB: Community SUSSY PART A [facility] [id number] Number: Repository [id number]: 330 [id number] [phone] () Date:2018-08-14 08/14/2018 Secondary JEFFERSON A [place] Insurance:AETNA SR DOTTERERDOB: [facility] [id number] Hospital Number: Repository [id number] Date:[id number] SENIOR SUPPLEMENT [address] [place] [id number]: 08/14/2018 Tertiary NOT GIVENUNK [place] Insurance:SELF PAY [facility] Number: Effective Repository Date:2018-08-14 08/09/2018 JEFFERSON A Primary JEFFERSON A [place] [id number] Insurance:MEDICARE DOTTERERDOB: Community SUSSY PART A [place] [id number] Number: Repository [id number]: 330 [id number] [phone] (HP) Date:2018-08-09 08/09/2018 Secondary JEFFERSON A [place] Insurance:AETNA SR DOTTERERDOB: [facility] [id number] Hospital Number: Repository [id number] Date:1221-27-86ESUFF SENIOR SUPPLEMENT [address] [place] [phone]: 08/09/2018 Tertiary NOT GIVENUNK [place] Insurance:SELF PAY [facility] Number: Effective Repository Date:2018-08-09 07/13/2018 JEFFERSON A Primary JEFFERSON A [place] [id number] Insurance:MEDICARE DOTTERERDOB: Community SUSSY PART A [facility] [id number] Number: Repository [id number]: 330 [id number] [phone] (HP) Date:2018-03-02 07/13/2018 Secondary JEFFERSON A [place] Insurance:AETNA SR DOTTERERDOB: [facility] [id number] Hospital Number: Repository [id number] Date:[id number] SENIOR SUPPLEMENT [address] [place] [phone]: 07/13/2018 Tertiary NOT GIVENUNK [place] Insurance:SELF PAY [facility] Number: Effective Repository Date:2018-05-13 03/02/2018 JEFFERSON A Primary JEFFERSON A [place] [id number] Insurance:MEDICARE DOTTERERDOB: Community SUSSY PART A [facility] [id number] Number: Repository [id number]: 330 [id number] [phone] (HP) Date:2017-08-27 03/02/2018 Secondary JEFFERSON A [place] Insurance:AETNA SR DOTTERERDOB: [facility] [id number] Hospital Number: Repository [id number] Date:[id number] SENIOR SUPPLEMENT [address] [address], [place] [address]FH: 03/02/2018 Tertiary NOT GIVENUNK [place] Insurance:SELF PAY [facility] Number: Effective Repository Date:2017-08-27 02/27/2018 Jefferson A Primary Jefferson A [place] [id number] Insurance:MEDICARE DottererDOB: Community Sussy PART A [facility] [id number] Number: Repository [id number]: 330 [id number] [phone] (HP) Date:2018-02-27 02/27/2018 Secondary Jefferson A [place] Insurance:AETNA SR DottererDOB: [facility] [id number] Hospital Number: Repository [id number] Date:4970-96-59YPLPD SENIOR SUPPLEMENT [address] [address], [place] [address]CD: 02/27/2018 Tertiary NOT GIVENUNK [place] Insurance:SELF PAY [facility] Number: Effective Repository Date:2018-02-27 10/15/2017 Jefferson A Primary Jefferson A [place] [id number] Insurance:MEDICARE DottererDOB: Community Sussy PART A [facility] [id number] Number: Repository [address]Tcu: 330 [id number] [phone] (HP) Date:2017-10-14 10/15/2017 Secondary Jefferson A [place] Insurance:AETNA SR DottererDOB: [facility] [id number] Hospital Number: Repository [id number] Date:3036-72-61WYLZX SENIOR SUPPLEMENT [address] [address], [place] [address]KM: 10/15/2017 Tertiary NOT GIVENUNK [place] Insurance:SELF PAY [facility] Number: Effective Repository Date:2017-10-14 10/15/2017 Jefferson A Primary Jefferson A [place] [id number] Insurance:MEDICARE DottererDOB: Community Sussy PART A [facility] [id number] Number: Repository [id number]: [phone] [phone] () Date:2017-10-14 10/15/2017 Secondary Jefferson A Elton Insurance:SATISH DiamondtererDOB: Community SUPPLEMENT INSPolicy [id number] [facility] Number: Repository [id number] Date:[id number] SENIOR SUPPLEMENT [address], [place] [address]AI: 10/15/2017 Tertiary NOT GIVENUNK [place] Insurance:SELF PAY Community [facility] Number: Effective Repository Date:2017-10-15
--- OUTSIDE RECORDS SUMMARY | 2018-10-02 22:37 | XMS RPT_ITS | Clinical Summary ---
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 living (current) use (ICD-10-CM 11/13 11/13 Richy (current) use of ) RN of anticoagulant anticoagulants s Essential I10 Active Janene K Essential (primary) (ICD-10-CM 11/13 11/13 Richy (primary) hypertension ) RN hypertension Paroxysmal 655509932 Active Janene K Paroxysmal atrial (SNOMED 11/13 11/[address]) RN fibrillation Medications Medication Instructions Start Stop Generic Name NDC Provider Date Date COREG 12.5 MG One tablet by / CARVEDILOL [id number] Loren Whitehead TABS mouth twice 08 jake Kiser PA-C COREG 6.25 MG One tablet by / CARVEDILOL [id number] Reji Garcia TABS mouth twice 08 Amanda CARL daily XARELTO 20 MG One tablet by / RIVAROXABAN [id number] Janene Mcmillan TABS mouth daily 08 Richy RN MULTIVITAMINS One tablet by / MULTIPLE Janene K TABS mouth daily 08 VITAMIN Richy PORTER VITAMIN C 1000 One tablet by / ASCORBIC ACID [id number] Reji F MG TABS mouth daily 09 Amanda CARL ASPIRIN EC 81 MG One tablet by / ASPIRIN [id number] Janene K TBEC mouth daily 08 Richy PORTER ASPIRIN EC 81 MG One tablet by ASPIRIN [id number] Reji Garcia TBEC mouth daily Amanda CARL NAPROXEN SODIUM One tablet by / NAPROXEN 47952003723 Janene K 220 MG TABS mouth twice 08 SODIUM Richy PORTER daily CARVEDILOL 3.125 One tablet by / CARVEDILOL 48948529475 Jnaene K MG TABS mouth twice 08 Richy PORTER daily NAPROXEN SODIUM Two tablets by / NAPROXEN 51046377191 Reji Garcia 220 MG TABS mouth daily 08 SODIUM Amanda CARL NAPROXEN SODIUM Two tablets by NAPROXEN [id number] Loren Whitehead 220 MG TABS mouth daily GABE Kiser PA-C Medications Administered No information available. 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 Dietary management education, guidance, and counseling [...] INTERVAL new path ms QT interval, electrocardiogram MT INTERVAL 142 ms MT interval, electrocardiogram EKGHRTRATE 61 BPM heart rate [...] 0.99 u[iU]/mL 0.358-3.74 thyroid stimulating hormone, serum Lab Report: CBC W/Diff, Automated LYMPHCT AUTO [...] Appointment 11:00 AM Loren Kiser PA-C, [address] [facility], [address], [place], [address], Pending order MMM Pending order Follow Up [...] 3 months Follow Up Appt 3 months CPT-73280 EKG (In office) NSTE Nuclear stress test -exercise 35088-3 *CBC without Diff 0667-1 *BMP 0788-1 *Hepatic Function Panel 04144-0 *Lipid Profile CC PCP 3026-2 *T4 (Total) 3016-3 *TSH CPT-02909 X-Ray, Chest, PA & Lateral Vital Signs [...]
--- OUTSIDE RECORDS SUMMARY | 2018-10-02 22:37 | XMS RPT_ITS | Clinical Summary ---
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 Janene K [facility] (current) use (ICD-10-CM 11/13 11/13 Richy (current) use of ) RN of anticoagulant anticoagulants s Essential I10 Active Janene K Essential (primary) (ICD-10-CM 11/13 11/13 Richy (primary) hypertension ) RN hypertension Paroxysmal 869618754 Active Janene K Paroxysmal atrial (SNOMED 11/13 11/[address]) RN fibrillation Medications Medication Instructions Start Stop Generic Name NDC Provider Date Date COREG 12.5 MG One tablet by / CARVEDILOL [id number] Loren Whitehead TABS mouth twice 08 jake Kiser PA-C COREG 6.25 MG One tablet by / CARVEDILOL 22445231437 Reji Garcia TABS mouth twice 08 Amanda CARL daily XARELTO 20 MG One tablet by / RIVAROXABAN [id number] Janene Mcmillan TABS mouth daily 08 Richy RN MULTIVITAMINS One tablet by / MULTIPLE Janene K TABS mouth daily 08 VITAMIN Richy PORTER VITAMIN C 1000 One tablet by / ASCORBIC ACID 49874974739 Reji F MG TABS mouth daily 09 Amanda CARL ASPIRIN EC 81 MG One tablet by / ASPIRIN 40521730140 Janene K TBEC mouth daily 08 Richy PORTER ASPIRIN EC 81 MG One tablet by ASPIRIN [id number] Reji Garcia TBEC mouth daily Amanda CARL NAPROXEN SODIUM One tablet by / NAPROXEN 14248038487 Janene K 220 MG TABS mouth twice 08 SODIUM Richy PORTER daily CARVEDILOL 3.125 One tablet by / CARVEDILOL 62845861634 Janene K MG TABS mouth twice 08 Richy PORTER daily NAPROXEN SODIUM Two tablets by / NAPROXEN [id number] Reji Garcia 220 MG TABS mouth daily 08 SODIUM Amanda CARL NAPROXEN SODIUM Two tablets by NAPROXEN [id number] Loren Whitehead 220 MG TABS mouth daily GABE Kiser PA-C Medications Administered No information available. 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 Dietary management education, guidance, and counseling [...] INTERVAL new path ms QT interval, electrocardiogram ID INTERVAL 142 ms ID interval, electrocardiogram EKGHRTRATE 61 BPM heart rate [...] 0.358-3.74 thyroid stimulating hormone, serum Office Visit: [facility] MEDS REVIEW Done Documentation of [...] Appointment 11:00 AM Loren Kiser PA-C, [address] [facility], [address], [place], [address], Pending order MMM Pending order Follow Up [...] 3 months Follow Up Appt 3 months CPT-02174 EKG (In office) NSTE Nuclear stress test -exercise 74974-9 *CBC without Diff 0667-1 *BMP 0788-1 *Hepatic Function Panel 97521-5 *Lipid Profile CC PCP 3026-2 *T4 (Total) 3016-3 *TSH CPT-30408 X-Ray, Chest, PA & Lateral Vital Signs [...]
== END 2018-08-09 09:41 | disposition home or self-care (01) ==
PROVIDERS: Emergency Provider Emergency Medicine; Family Provider Family Medicine; PCP Family Medicine
DX: R33.9 Retention of urine, unspecified (principal); K59.09 Other constipation; I10 Essential (primary) hypertension; Z98.890 Other specified postprocedural states; Z79.891 Long term (current) use of opiate analgesic; Z79.899 Other long term (current) drug therapy
CPT/HCPCS: 51702; 74176; 80053; 81001; 85025; 96361; 96374; 96375; 99284; J7030; J7040; J2405

== ENCOUNTER → 2018-08-14 12:42 | Outpatient (CLI) | payer MEDICARE, OTHER, SELFPAY ==
[2018-08-09 06:18] VITALS: BMI 31.3
== END ==
PROVIDERS: Family Provider Family Medicine; PCP Family Medicine; Referring Provider Nurse Practitioner Adult Health; Visit Provider Nurse Practitioner Adult Health
DX: R30.0 Dysuria (principal)
CPT/HCPCS: 87086; 87088; 87186

== ENCOUNTER 2018-10-21 10:00 | Outpatient (RCR) | payer MEDICARE, OTHER, SELFPAY ==
--- NOTE | 2018-10-07 11:41 | HP.PTEVAL ---
Patient's Visit Information JEFFERSON BARRETO is a 68 year old M referred to Physical Therapy by JOANNE Beck with a diagnosis of LUMBAR STENOSIS WITH NEUROGENIC CLAUDICATION. Date of Evaluation: 10/07/18 Physical Therapist: Adam Monteiro PT, Cert MDT, OCS - Visit Plan Frequency: 2x /Week Duration: 4 Weeks Plan: LUMBAR FLEXION,DLS ,POSTURAL EX'S ,LE FLEXABLITY - Subjective Findings: This 68 y/o male presents to physical therapy with lumbar stenosis with neurogenic claudication. Patient underwent s/p posterior hemilectomy T11,T12 and bilateral posterior hemilectomy L2-5 on 08/05/[address] Mcneill at [facility]. Patient was in hospital for 3 nights due to excessive drainage. Patient was d/c home with lumbar no PT for 6weeks,no lifting 5 #. Patient seen Recommended PT. Patient has low back pain left side and parathesia in buttucks. Symptoms worse in AM ,sitting ,prolonged standing 1 hour,walking 30 minutes. Symptoms better on the move ,celebrex. Patient has no leg symptoms some tingling. Patient sleeping good at night. Patient bowel/bladder good. Coughing/sneezing -. Patient has had lumbar pain and radicular symptoms 4-5 years. Prior to surgery patient had MRI. Patient tried PT helped with pain 2 years ago. Patient surgery affects QOL and function. 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 SOCIAL: - Pain Left Back Pain Intensity (Out of 10): 2 Pain Intensity Range: 10 Comment: morning 7/10 - Objective POSTURE: mild foward posture ,hips/kness flexed calcaneal valgus ,forefoot ER. GAIT: calcalneal valgus ankle forefoot ER reciprocal gait pattern. NEURO: C/O tingling in legs ,reflexes L3-4,L4-5,L5-S1 1/3. SYMMTRIES: mild assymtries. PALAPTION: tender L-S. INSCION: well approcimate. LUMBAR ROM: flexion min/mod loss with decrease curve reversal ,extension mod loss,side glides mod loss. MMT: quads/hams 4/5,hip flexion 4-/5,ankle 4/5 ,hip abd 4-/5 - Special Tests L/S Slump test left side: Negative L/S Slump test right side: Negative L/S Left Straight Leg Raise: Negative L/S Right Straight Leg Raise: Negative - Goals Goal 1:: Patient to be Independant with HEP Goal Time Frame: 4-6 Weeks Goal 2:: Patient to improve posture for ADL'S Goal Time Frame: 4-6 Weeks Goal 3:: Patient to decrease lumbar pain by 50% on left side in AM and with extended walking and standing. Goal Time Frame: 4-6 Weeks Goal 4:: Patient to improve lumbar ROM for function of recovery. Goal Time Frame: 4-6 Weeks Goal 5:: Patient improve GERONIMO back disablity score by 5 npoints to improve function. Goal Time Frame: 4-6 Weeks - Rehabilitation Potential Physical Therapy Diagnosis: This patient underwent s/p bilateral posterior hemilectomy T11 ,T12 and L2-5 with pain left lumbar,decrease ROM ,strength impairs ADL's and function with walking and standing. Rehabilitation Potential: Good - Anticipated Interventions Patient/Client Instruction: Educate patient on: Condition, Plan of Care For the Purpose of:: To decrease pain, To increase ROM, To improve muscle performance and motor function, To improve ability to perform ADL's, To increase tolerance to activity/condition/position, To improve ability of physical actions for home/community/work/leisure, To improve health of tissue, To decrease soft tissue restriction, To increase flexibility/ROM, To reduce risk of recurrence, To improve ability to perform tasks related to life management Therapeutic Exercise to Include: Strength training, Postural training, Flexibilty training, Active ROM, Dynamic Lumbar Stabilization For the Purpose of:: To decrease pain, To increase ROM, To improve muscle performance and motor function, To improve ability to perform ADL's, To increase tolerance to activity/condition/position, To improve ability of physical actions for home/community/work/leisure, To improve health of tissue, To decrease soft tissue restriction, To increase flexibility/ROM, To reduce risk of recurrence, To improve ability to perform tasks related to life management Cryotherapy (ice pack, ice massage): Yes Thermo therapy (hot pack): Yes For the Purpose of:: To decrease pain, To improve nutrient delivery to tissue, To increase oxygenation perfusion, To improve health of tissue, To decrease soft tissue restriction Thank you for the opportunity to evaluate your patient. For Medicare and Medicare HMO plans, please review the plan of care and approve it. It will need to be FAXED BACK to us at [phone] for Medicare purposes. For Medicare only, by signing this I certify the plan of care. Please let me know if there are questions or concerns regarding this plan of care. Physician Signature: Date:
--- NOTE | 2018-12-16 11:05 | HP.PTDCSUM ---
HP - PT D/C Summary It has been my pleasure to treat JEFFERSON BARRETO under orders from Ashley Whitehead, JUANITA-C, for the diagnosis of LUMBAR STENOSIS WITH NEUROGENIC CLAUDICATION for a total of 2 visit(s). Discharge Date: 10/21/18 Please see the following information for a summary of their discharge status. - Subjective Subjective: Doing good no pain today ..doing ex's at home - Pain Left Back Pain Intensity (Out of 10): 0 - Overall Improvement % Improvement: 75 - Objective Objective/Function: POSTURE: mild foward posture,knee valgus,calcaneal valgus. GAIT:mild foward posture knee valus ,ankle calcaneal valgus. MMT: quads/hams 4/5,hip flexion 4-/5,ankle 4/5. LUMBAR ROM: flexion mod ,extension mos loss - Goals Goal 1:: Patient to be Independant with HEP Goal Progress: Goal Met Goal 2:: Patient to improve posture for ADL'S Goal Progress: Goal Met Goal 3:: Patient to decrease lumbar pain by 50% on left side in AM and with extended walking and standing. Goal Progress: Goal Met Goal 4:: Patient to improve lumbar ROM for function of recovery. Goal Progress: Goal Met Goal 5:: Patient improve GERONIMO back disablity score by 5 npoints to improve function. Goal Progress: Goal Met - Plan Plan: D/C TO HEP - D/C Information Discharge Comments: HEP If there are questions or concerns regarding this patient's physical therapy, please feel free to call me at [phone]. Thank you for the referral of this patient. Sincerely, Adam Monteiro, PT, Cert MDT, OCS
== END 2018-10-21 19:00 | disposition home or self-care (01) ==
LOC: PT 10:00
PROVIDERS: Family Provider Family Medicine; PCP Family Medicine; Referring Provider Nurse Practitioner Acute Care; Visit Provider Nurse Practitioner Acute Care
DX: M48.062 Spinal stenosis, lumbar region with neurogenic claudication (principal)
CPT/HCPCS: 97110; 97162

== ENCOUNTER 2018-10-28 15:12 | Emergency (ER) | payer MEDICARE, OTHER, SELFPAY ==
[2018-10-28 14:04] VITALS: BMI 32.5
[2018-10-28 15:12] VITALS: BP 142/90; PULSE 108; RESP 16; TEMP 36.4; O2SAT 99; BMI 32.5
--- NOTE | 2018-10-28 15:26 | EKG12_ITS ---
Test Reason : PALPS Blood Pressure : / mmHG Vent. Rate : 146 BPM Atrial Rate : 147 BPM P-R Int : 000 ms QRS Dur : 108 ms QT Int : 344 ms P-R-T Axes : 000 019 085 degrees QTc Int : 536 ms Supraventricular tachycardia Incomplete left bundle branch block Nonspecific ST and T wave abnormality Abnormal ECG Confirmed by CLINT CARL, KELVIN ([id number]), senior editor JONES AYAAL ([id number]) on 11/02/2018 5:06:00 PM Referred By: SHAMIKA Confirmed By:KELVIN JARAMILLO MD
--- NOTE | 2018-10-28 15:26 | RAD_ITS ---
STUDY: X-RAY CHEST REASON FOR EXAM: Male, 68 years old. Palpitations. TECHNIQUE: Single frontal view of the chest. COMPARISON: December 02, 2016 FINDINGS: There is no new focal consolidation. Normal size heart. Normal mediastinum and elena. Normal visualized pulmonary arteries. Normal visualized aortic arch and descending thoracic aorta. There are diffuse degenerative changes of the visualized thoracic spine. Normal visualized ribs, clavicles, and shoulders. There is no demonstrated abnormality of the visualized soft tissue structures of the upper abdomen. RAD/Chest 1 View (Portable) IMPRESSION: No acute cardiopulmonary process. Electronically Signed: Екатерина Grant MD at 16:13 EST Tel , Service support ,
[2018-10-28 15:28] VITALS: BP 132/100; PULSE 148
[2018-10-28] MEDS: 0.9% Normal Saline 1,000 ML 150 ML IV (15:30)
[2018-10-28] MEDS: dilTIAZem 25 MG/5 ML Vial 20 MG IV BOLUS (15:30)
[2018-10-28 15:40] VITALS: PULSE 77
[2018-10-28 15:48] LABS: Absolute Lymphocyte Count 2.98 X10^3/ul (0.83-4.51); Absolute Neutrophil Count 4.3 X10^3/uL (2.0-7.7); Basophil# 0.01 X10^3/uL; Basophil% 0.1 % (0-1); Eosinophil# 0.17 X10^3/uL; Hematocrit 45.9 % (40-54); Hemoglobin 15.6 g/dl (13.0-16.5); Lymphocyte # 2.98 X10^3/ul (4.0); Lymphocyte % 35.9 % (19-41); Mean Corpuscular Hgb 33.4 pg (27.0-32.0); Mean Corpuscular Volume 98.3 fL (80-94); Mean Platelet Vol. 11.1 fl (6.2-12.0); Monocyte# 0.85 X10^3/uL; Monocyte% 10.2 % (0-10); Neutrophil # 4.28 X10^3/uL (2.7-7.7); Neutrophil % 51.7 % (47-70); Platelet Count 239 K/mm3 (150-450); RBC Distribution Width CV 13.8 % (11.6-14.6); RBC Distribution Width SD 48.5 fl (35.1-43.9); Red Blood Count 4.67 M/mm3 (4.6-6.2); White Blood Count 8.3 K/mm3 (4.4-11.0)
--- NOTE | 2018-10-28 15:52 | ED.DCSUM_ITS ---
- ER Visit Summary Date of Service: 10/28/18 Chief Complaint: [Palpitations] History of Present Illness: The patient is a 68 M [presents the emergency department with complaint of racing heart palpitations that started about 4 days ago. Patient states that he has a history of paroxysmal atrial fibrillation and had been off of his Eliquis but we started 2 days ago. Patient denies recent illness such as fever or cough. Patient's not had any vomiting or diarrhea. He denies any chest pain. He does complain of some exertional dyspnea. Patient was seen by nurse practitioner and Dr. Reji Patel's office and sent to the ER. Patient tells me that he has been compliant with his medications otherwise. Patient's been taken an extra dose of carvedilol at home trying to get this to resolve. Patient states that in the past his symptoms would typically resolve after about a day or so.] Physical Examination: [HEENT-PERRLA, EOMI. Cranial nerves II through XII grossly intact. TMs clear. Mucous membranes moist. No adenopathy. Cardiovascular-irregular and tachycardic. No murmurs auscultated. Lungs-clear to auscultation, chest wall stable without crepitus or subcu emphysema Abdomen-normoactive bowel sounds, soft, nontender, no rebound or rigidity, no peritoneal signs. Extremities-intact ?4, normal range of motion, normal pulses, atraumatic] Test Results: [EKG obtained on arrival showed atrial flutter with a ventricular rate of 146 bpm with some nonspecific ST changes. CBC with differential showed a white count 8.3, hemoglobin 15.6, hematocrit 46, platelets 239. Chemistries unremarkable. Troponin is less than 0.015. TSH was 1.62.] Chest x-ray was unremarkable. Emergency Department Course and Treatment: [Patient received Cardizem 20 mg IV bolus. Patient's heart rate improved into the 70s.] Case was discussed with Dr. Reji Patel who asked that I start patient on Cardizem 120 mg twice a day and patient to follow-up with their office. 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 Patient to continue with his anticoagulation.] Disposition: [Discharged home in stable condition] Impression: [Atrial flutter-controlled ventricular response] This note was generated with Dragon dictation software. It may contain incorrect words, spelling, and punctuation that were not noted in review of the chart prior to signing ED Disposition - Plan for ED Patient: Referrals: Linden Velázquez [Primary Care Provider] -
[2018-10-28 15:59] LABS: POSITIVE COUNT NO; POSITIVE DIFFERENTIAL NO; POSITIVE MORPHOLOGY NO
[2018-10-28 16:06] LABS: Anion Gap 9 (5-15); BUN 21 mg/dL (7-18); BUN/Creat Ratio 24.8 RATIO (10-20); Calcium,Total 8.9 mg/dL (8.5-10.1); Chloride 105 mmol/L (98-107); Creatinine, Serum 0.85 mg/dL (0.70-1.30); EST Glomerular Filtration Rate 96 mL/min (>60); Est Glom Filt Rate - Afr Amer 116 mL/min (>60); Estimated Creatinine Clearance 89.82 ml/min; Glucose 122 mg/dL (74-106); Magnesium 2.2 mg/dL (1.6-2.6); Potassium 4.5 mmol/L (3.5-5.1); Sodium Level 140 mmol/L (136-145); Thyroid Stim Hormone (TSH) 1.62 uIU/mL (0.358-3.74)
[2018-10-28 16:54] VITALS: BP 119/85; PULSE 78; RESP 20; O2SAT 94
--- NOTE | 2018-10-28 16:59 | ED.DEP ---
ED Disposition - Plan for ED Patient: Instructions: ED Paroxysmal Atrial Flutter Prescriptions: Diltiazem HCl [Cardizem] 120 mg PO BID #60 tab Referrals: Linden Velázquez [Primary Care Provider] - Reji Patel MD [STAFF PHYSICIAN] - 3-5 Days
[2018-10-28 17:16] VITALS: BP 114/82; PULSE 79; RESP 20; O2SAT 93
== END 2018-10-28 17:17 | disposition home or self-care (01) ==
LOC: ED 15:46
PROVIDERS: Emergency Provider Emergency Medicine; Family Provider Family Medicine; PCP Family Medicine
DX: I48.92 Unspecified atrial flutter (principal); I10 Essential (primary) hypertension; Z79.02 Long term (current) use of antithrombotics/antiplatelets; Z79.899 Other long term (current) drug therapy
CPT/HCPCS: 71045; 80048; 83735; 84443; 84484; 85025; 93005; 96361; 96374; 99284; J7030; A4216

== ENCOUNTER → 2019-01-04 | Outpatient (CLI) | payer MEDICARE, OTHER, SELFPAY ==
[2018-10-29 10:31] VITALS: BMI 32.5
--- NOTE | 2019-01-04 07:46 | ECHOCS_ITS ---
Reason For Study: ATRIAL FIB-FLUTTER Procedure This was a 2D Doppler, Color Flow transthoracic echocardiogram. The study was technically difficult. Contrast injection was performed. Exam performed in department. Left Ventricle Normal LV size. Left ventricular systolic function is normal. The estimated ejection fraction is 55 %. Unable to assess diastolic dysfunction. No regional wall motion abnormalities noted. Right Ventricle Normal RV size. Normal systolic function. Atria The left atrium is mildly enlarged. Normal right atrium. No doppler evidence for ASD. Mitral Valve There is mild mitral annular calcification. Mild diffuse mitral valve thickening. Trivial mitral valve insufficiency. Tricuspid Valve Normal tricuspid valve. Trivial tricuspid valve insufficiency. Right ventricular systolic pressure estimated to be 25 mmHg. Aortic Valve Trisinus/trileaflet aortic valve. Mild diffuse aortic valve thickening. Mild focal aortic valve calcification. Aortic sclerosis, no stenosis. Pulmonic Valve The pulmonic valve is not well visualized. Great Vessels Normal sized aortic root. Pericardium/Pleural No pericardial effusion. Medication 22 gauge I.V. with prn adaptor inserted into left arm. Diluted definity 4ml given slow IV push to enhance endocardial definition. MMode/2D Measurements & Calculations LVIDd: 5.2 cm IVSd: 0.88 cm LVOT diam: 2.0 cm LVIDs: 3.3 cm LVPWd: 1.0 cm RVDd: 3.9 cm FS: 35.6 % LVOT area: 3.0 cm2 Ao root diam: 3.2 cm LAV(MOD-bp): 70.7 ml LVAd ap4: 32.1 cm2 LAV(MOD-bp) Indexed: 31.9 ml/m2 EDV(MOD-sp4): 111.9 ml LAV(MOD-sp2): 71.5 ml EDV(sp4-el): 115.6 ml LAV(MOD-sp4): 67.7 ml LVAs ap4: 17.9 cm2 ESV(MOD-sp4): 44.0 ml ESV(sp4-el): 45.6 ml EF(MOD-sp4): 60.7 % EF(sp4-el): 60.6 % SV(MOD-sp4): 68.0 ml SV(sp4-el): 70.0 ml LA A4 area: 21.7 cm2 LA dimension(2D): 4.5 cm RA A4 area: 19.5 cm2 Doppler Measurements & Calculations MV E max amanda: 106.8 cm/sec Ao V2 max: 115.6 cm/sec LV V1 max: 83.8 cm/sec Ao max P.4 mmHg LV V1 max P.8 mmHg DEAN(V,D): 2.2 cm2 PA V2 max: 86.3 cm/sec TR max amanda: 235.1 cm/sec TR max P.1 mmHg Interpretation Summary The study was technically difficult. Contrast injection was performed. Left ventricular systolic function is normal. The estimated ejection fraction is 55 %. The left atrium is mildly enlarged. There is mild mitral annular calcification. Mild diffuse mitral valve thickening. Trivial mitral valve insufficiency. Trivial tricuspid valve insufficiency. Aortic sclerosis, no stenosis. Right ventricular systolic pressure estimated to be 25 mmHg. Unable to assess diastolic dysfunction. Ordering Physician: Reji Patel Referring Physician: DEEPTI GODFREY Performed By: Claudia Fitzgerald RDCS
== END | disposition home or self-care (01) ==
LOC: CVS 07:45
PROVIDERS: Family Provider Family Medicine; PCP Family Medicine; Referring Provider Internal Medicine Cardiovascular Disease; Visit Provider Internal Medicine Cardiovascular Disease
DX: I48.92 Unspecified atrial flutter (principal); I48.0 Paroxysmal atrial fibrillation; I10 Essential (primary) hypertension; R06.09 Other forms of dyspnea
CPT/HCPCS: 93306; Q9957; A4216; C8929

== ENCOUNTER → 2019-10-08 07:48 | Outpatient (CLI) | payer MEDICARE, OTHER, SELFPAY ==
[2019-08-09 09:06] VITALS: BMI 31.6
--- NOTE | 2019-10-08 07:51 | CT_ITS ---
STUDY: CT CHEST WITH CONTRAST REASON FOR EXAM: Male, 69 years old. F/U LUNG NODULE, HEART ABLATION D/T A-FIB RADIATION DOSAGE (If Supplied By Facility): CTDIvol = ( 15.34 ) mGy, DLP = ( 610.74 ) mGycm TECHNIQUE: Transaxial imaging was performed following intravenous administration of IV 100mL Isovue-300. Multiplanar coronal and sagittal images were reformatted. Individualized dose optimization techniques were used for this CT. COMPARISON: Comparison is made with prior study dated July 23, 2011 and prior chest radiograph dated October 28, 2018.. FINDINGS: Small bilateral benign appearing axillary lymph nodes. There is a 5.6 mm noncalcified nodule in the peripheral lateral aspect of the left lower lobe as seen on axial image #87. This is essentially unchanged. The previously seen 1.2 cm nodule in the lateral posterior aspect of the left lower lobe has almost completely resolved. No new abnormality is seen. There is no demonstrated pleural abnormality. Normal heart and pericardium. Normal mediastinum. Normal hilar regions. Normal enhanced pulmonary arteries. Normal aorta arch and descending thoracic aorta. There are multi-level degenerative changes of the thoracic spine. There is no demonstrated abnormality of the visualized upper abdomen. CT/Chest WITH Contrast IMPRESSION: Interval decrease in size of the previously seen pleural-based nodules in the left lower lobe. Electronically Signed: Charlie De La Rosa, at 14:10 EST , Service support ,
[2019-10-08 08:01] LABS: CREATININE FINGERSTICK 1.5 mg/dL (0.70-1.30)
== END ==
PROVIDERS: PCP Family Medicine; Referring Provider Family Medicine; Visit Provider Family Medicine
DX: R91.1 Solitary pulmonary nodule (principal)
CPT/HCPCS: 71260; Q9967

== ENCOUNTER → 2020-11-20 09:48 | Outpatient (CLI) | payer MEDICARE, OTHER, SELFPAY ==
[2020-11-02 15:38] VITALS: BMI 32.6
--- NOTE | 2020-11-20 09:50 | CDU_ITS ---
Reason For Study: Carotid artery stenosis Rt. Velocities/BP Lt. Velocities/BP Prox CCA 111.2/12.1 cm/sec. Prox CCA 85.3/18.2 cm/sec. Mid CCA 104.7/17.3 cm/sec. Mid CCA 90.4/16.8 cm/sec. Dist CCA 86.5/14.7 cm/sec. Dist CCA 69.5/14.6 cm/sec. Prox ICA 48.6/9.5 cm/sec. Prox ICA 52/8 cm/sec. Mid ICA 76/23.9 cm/sec. Mid ICA 57.5/19 cm/sec. Dist ICA 89.1/30.4 cm/sec. Dist ICA 86.1/31.1 cm/sec. Rt. ICA/CCA = 0.9. Lt. ICA/CCA = 1.0. Prox ECA 107.3/13.4 cm/sec. Prox ECA 59.7/10.2 cm/sec. Rt. Vert. 33.4/6.4 cm/sec. Lt. Vert. 44.8/14.2 cm/sec. Right Extracranial There is homogeneous, smooth atherosclerotic plaque noted in the right common carotid artery. There is intimal thickening but no significant atherosclerotic plaque noted in the right internal carotid artery. There is heterogeneous, irregular atherosclerotic plaque noted in the right external carotid artery. Flow could not be demonstrated in the right vertebral artery. Left Extracranial There is homogeneous, smooth atherosclerotic plaque noted in the left common carotid artery. There is homogeneous, smooth atherosclerotic plaque noted in the left internal carotid artery. There is intimal thickening but no significant atherosclerotic plaque noted in the left external carotid artery. Antegrade flow is noted in the left vertebral artery. Procedure Carotid Duplex 30486. This is a Carotid Duplex examination using B-mode, color flow and specral Doppler. Exam performed in department. Interpretation Summary Intimal thickening proximal right internal carotid with <50% stenosis <50% stenosis right external carotid Smooth plague proximal left internal carotid with <50% stenosis <50% stenosis left external carotid Patent, antegrade vertebrals bilaterally Ordering Physician: Reji Patel Referring Physician: Linden Velázquez Performed By: Karla Carcamo RVT
== END ==
PROVIDERS: PCP Family Medicine; Referring Provider Internal Medicine Cardiovascular Disease; Visit Provider Internal Medicine Cardiovascular Disease
DX: I65.21 Occlusion and stenosis of right carotid artery (principal)
CPT/HCPCS: 93880

== ENCOUNTER → 2021-05-02 09:28 | Outpatient (CLI) | payer MEDICARE, OTHER, SELFPAY ==
[2021-05-02 10:56] LABS: Anion Gap 6 (5-15); BUN 20 mg/dL (7-18); BUN/Creat Ratio 26.5 RATIO (10-20); Calcium,Total 9.2 mg/dL (8.5-10.1); Chloride 106 mmol/L (98-107); Creatinine, Serum 0.75 mg/dL (0.70-1.30); EST Glomerular Filtration Rate 109 mL/min (>60); Est Glom Filt Rate - Afr Amer 132 mL/min (>60); Glucose 163 mg/dL (74-106); Potassium 4.3 mmol/L (3.5-5.1); Sodium Level 139 mmol/L (136-145)
[2021-05-02 10:59] LABS: Absolute Lymphocyte Count 1.79 X10^3/uL (0.83-4.51); Absolute Neutrophil Count 3.9 X10^3/uL (2.0-7.7); BNP,B-Type NATRIURETIC PEPTIDE 15.6 pg/mL (0-100); Basophil# 0.01 X10^3/uL; Basophil% 0.2 % (0-1); Eosinophil# 0.11 X10^3/uL; Eosinophils% 1.7 % (0-5); Hematocrit 42.3 % (40-54); Hemoglobin 14.8 g/dL (13.0-16.5); Lymphocyte # 1.79 X10^3/ul (0.83-4.51); Mean Corpuscular Hgb 34.9 pg (27.0-32.0); Mean Corpuscular Volume 99.8 fL (80-94); Mean Platelet Vol. 10.8 fl (6.2-12.0); Monocyte# 0.52 X10^3/uL; Monocyte% 8.1 % (0-10); NRBC Flagged by Analyzer 0 % (0-5); Neutrophil # 3.94 X10^3/uL (2.7-7.7); Neutrophil % 61.7 % (47-70); Platelet Count 223 K/mm3 (150-450); RBC Distribution Width CV 13.9 % (11.6-14.6); RBC Distribution Width SD 46.8 fl (35.1-43.9); Red Blood Count 4.24 M/mm3 (4.6-6.2); White Blood Count 6.4 K/mm3 (4.4-11.0)
== END ==
PROVIDERS: PCP Family Medicine; Referring Provider Nurse Practitioner Gerontology; Visit Provider Nurse Practitioner Gerontology
DX: R06.09 Other forms of dyspnea (principal); Z79.01 Long term (current) use of anticoagulants
CPT/HCPCS: 36415; 80048; 83880; 85025

== ENCOUNTER 2023-10-24 12:42 | Inpatient (IN) | payer MEDICARE, OTHER, SELFPAY ==
[2023-10-24 12:42] VITALS: BP 170/96; PULSE 87; RESP 16; TEMP 36.6; O2SAT 97; BMI 31.3
--- NOTE | 2023-10-24 12:56 | CT_ITS ---
STUDY: CT ABDOMEN AND PELVIS WITH CONTRAST REASON FOR EXAM: Male, 73 years old. Mid abdominal pain and diarrhea. RADIATION DOSAGE (If Supplied By Facility): CTDIvol = ( 16.1 ) mGy, DLP = ( 1193.41 ) mGycm TECHNIQUE: Transaxial images were obtained from the dome of the diaphragm to the symphysis pubis without oral contrast. IV 100mL Isovue-300 was administered. Sagittal and coronal images were reconstructed. Individualized dose optimization techniques were used for this CT. COMPARISON: Comparison is made with prior study dated August 09, 2018. FINDINGS: Stable minimal increased markings at the right lung base suggestive of a linear scarring. Coronary artery calcification. There is decreased attenuation of the liver consistent with steatosis. Normal gallbladder and extrahepatic biliary system. Normal spleen. Normal pancreas. Normal bilateral adrenal glands. There is a 2.5 cm cyst in the mid lateral portion of the right kidney. Tiny nonobstructive calculus in the lower pole calyx of the left kidney. There is a small hiatal hernia. Fluid distention of the stomach. There are dilated loops of the small intestine with a non-distended colon consistent with a small bowel obstruction. This most likely is either early complete or incomplete bowel obstruction. The transition point is in the mid ileum. Moderate amount of fecal material is seen in the colon. The appendix is visualized and appears normal. There is scattered atherosclerotic calcification of the abdominal aorta, without a demonstrated aneurysm. Normal inferior vena cava. Normal retroperitoneum. Normal urinary bladder. There is a small umbilical hernia containing fat. There are diffuse degenerative changes of the visualized lumbar spine. CT/Abdomen/Pelvis W IV Cont ONLY IMPRESSION: Findings in keeping with the partial versus early complete small bowel obstruction with the transition point in the mid ileal level. Gas and fecal material are seen in the colon. There is fluid distention of the stomach. Fatty infiltration of liver. Nonobstructive Electronically Signed: Charlie De La Rosa MD at 14:47 EST ,
[2023-10-24] MEDS: 0.9% Normal Saline (1000mL) 1,000 ML 999 ML IV (13:05)
[2023-10-24] MEDS: Ondansetron 4 MG/2 ML Vial IV ×2 (13:05→15:26)
--- NOTE | 2023-10-24 13:08 | EDS_ITS ---
HPI <GREG Nelson - Last Filed: 10/24/23 15:23> HPI - GI History of Present Illness Chief Complaint: Abd Pain Narrative Narrative: 73 old male states 3 days ago he developed periumbilical pain, nausea and vomiting whenever he tries to eat, and had 1 bout of diarrhea. Since that he has not had a bowel movement. He continues to have periumbilical pain and cannot keep down fluids. No fever, chills, or upper respiratory symptoms. No sick contacts. No history of abdominal surgeries. He has a chronic abdominal hernia which does not bother him. [facility] <GREG Nelson - Last Filed: 10/24/23 15:23> [facility] Medical History (Updated 10/24/23 @ 16:43 by Karla Bowden) Atrial fibrillation Atrial fibrillation with RVR Dyspnea on exertion Essential hypertension History of DVT (deep vein thrombosis) History of pulmonary embolism nursing home current use of anticoagulant Lung nodule Paroxysmal atrial fibrillation Pulmonary embolism Rheumatoid arthritis Spinal stenosis Stenosis of right carotid artery Home Medications multivitamin 1 ea PO DAILY supplement 07/13/17 [History Last Taken 10/23/23] acetaminophen 500 mg capsule 500 mg PO BID PRN pain 02/12/23 [History Last Taken 10/24/23] carvedilol 12.5 mg tablet 12.5 mg PO BID blood pressure #60 tabs 02/21/23 [Rx Last Taken 10/24/23] rivaroxaban 20 mg tablet (Xarelto) See Rx Instructions .Route .COMPLEX blood thinner #30 tabs 06/05/23 [Rx Last Taken 10/23/23] lisinopril 10 mg tablet 10 mg PO DAILY blood pressure 10/24/23 [History Last Taken 10/22/23] psyllium husk 3.4 gram/5.4 gram oral powder (Metamucil) 2 tsp PO DAILY constipation 10/24/23 [History Last Taken 10/23/23] Allergy/AdvReac Type Severity Reaction Status Date / Time sulfamethoxazole Allergy Hives Verified 10/24/23 12:44 [From Bactrim] trimethoprim [From Bactrim] Allergy Hives Verified 10/24/23 12:44 oxycodone AdvReac Other Verified 10/24/23 12:44 Family History Mother CVA (cerebral vascular accident) Hypertension Brother Diabetes Surgical History History of ankle fusion History of cardiac radiofrequency ablation (~01/18/19) History of carpal tunnel surgery History of foot surgery Social History (Updated 10/24/23 @ 15:[address] Pratima Loaiza DO) household members: spouse housing: house Smoking Status: Never smoker alcohol intake: never substance use type: does not use ROS <GREG Nelson - Last Filed: 10/24/23 15:23> ROS ED ROS Narrative Constitutional: Negative for fever, chills, malaise. CVS: Negative for chest pain, syncope. Respiratory: Negative for shortness of breath, cough. GI: Positive for abdominal pain, nausea, vomiting, diarrhea. Negative for melena, hematochezia. : Negative for dysuria, hematuria or frequency. EXAM <GREG Nelson - Last Filed: 10/24/23 15:23> Physical Exam Narrative Exam Narrative: CONST: Patient sitting in no acute distress. EYES: Normal inspection. NECK: Normal inspection. RESP: No respiratory distress, CTAB. CVS: Regular rate and rhythm, no murmur, no gallop. ABD: Soft with mild distention and periumbilical tenderness, no guarding or rebound, no hepatosplenomegaly. SKIN: Color normal, no rash, warm, dry, intact. EXTREMITIES: Normal appearance, no pedal edema. NEURO: Oriented x4. PSYCH: Normal affect. Const Vital Signs: 10/24/23 12:42 Temperature 97.8 F Temperature Source Temporal Pulse Rate 87 Respiratory Rate 16 Blood Pressure 170/96 H Blood Pressure Mean 120 Pulse Ox 97 Oxygen Delivery Method Room Air <Dr. Lea Gaona DO - Last Filed: 10/27/23 17:05> Physical Exam Const Vital Signs: 10/24/23 12:42 Temperature 97.8 F Temperature Source Temporal Pulse Rate 87 Respiratory Rate 16 Blood Pressure 170/96 H Blood Pressure Mean 120 Pulse Ox 97 Oxygen Delivery Method Room Air MDM <GREG Nelson - Last Filed: 10/24/23 15:23> MDM MDM Narrative Medical decision making narrative: History gathered from: Patient and spouse Patient has had 3 days of nausea and vomiting, abdominal pain, and no bowel movements. No abdominal surgical history. He appears well and nontoxic with stable vital signs. He has diffuse abdominal tenderness but no peritoneal signs. CBC and BMP are unremarkable. CT shows findings of partial versus early complete small bowel obstruction with a transition point in the mid ileal level. Case was discussed with Dr. Andrews who reviewed the films and recommended NG tube placement. Since he is on anticoagulation there is no indication for emergent surgery and she recommended admission to medicine. Case was discussed with the hospitalist. Differential: Ileus, bowel obstruction, diverticulitis among others Consults: General surgery, hospitalist Lab Data Attestation: I reviewed the patient's lab results. Labs: Laboratory Results - last 24 hr 10/24/23 10/24/23 13:04 14:30 WBC 9.0 RBC 4.97 Hgb 15.8 Hct 48.2 MCV 97.0 H MCH 31.8 MCHC 32.8 RDW Std Deviation 46.8 H RDW Coeff of Brock 13.1 Plt Count 237 MPV 10.4 Immature Gran % (Auto) 0.300 Neut % (Auto) 67.4 Lymph % (Auto) 20.8 [place] % (Auto) 10.7 H Eos % (Auto) 0.4 Baso % (Auto) 0.4 Absolute Neuts (auto) 6.0 Absolute Lymphs (auto) 1.86 Nucleated RBC % 0 Sodium 137 Potassium 4.4 Chloride 105 Carbon Dioxide 26.0 Anion Gap 6 BUN 22 H Creatinine 1.01 Estim Creat Clear Calc 80.32 Est GFR (MDRD) Af Amer 93 Est GFR (MDRD) Non-Af 77 BUN/Creatinine Ratio 21.8 H Glucose 174 H Calcium 9.0 Total Bilirubin 1.20 H AST 25 ALT 23 Alkaline Phosphatase 49 Total Protein 7.5 Albumin 3.3 Globulin 4.2 Albumin/Globulin Ratio 0.8 L Lipase 13 Urine Color Yellow Urine Clarity Clear Urine pH 5.0 Ur Specific [place] 1.025 Urine Protein 30 H Urine Glucose (UA) Normal Urine Ketones 5 H Urine Occult Blood Negative Urine Nitrite Negative Urine Bilirubin 1 H Urine Urobilinogen 1 H Ur Leukocyte Esterase 25 H Urine RBC 0 SEEN Urine WBC 0-5 SEEN Ur Squamous Epith Cells 0 SEEN Calcium Oxalate Crystal 3+ Urine Bacteria 1+ Urine Mucus 2+ Radiography Diagnostic Testing: Clinical Impression(s) from Imaging Studies Abdomen/Pelvis CT 10/24/23 12:56 IMPRESSION: Findings in keeping with the partial versus early complete small bowel obstruction with the transition point in the mid ileal level. Gas and fecal material are seen in the colon. There is fluid distention of the stomach. Fatty infiltration of liver. Nonobstructive Electronically Signed: Charlie De La Rosa MD at 14:47 EST , <Dr. Lea Gaona, DO - Last Filed: 10/27/23 17:05> [facility] Narrative Medical decision making narrative: History gathered from: Patient and spouse Patient has had 3 days of nausea and vomiting, abdominal pain, and no bowel movements. No abdominal surgical history. He appears well and nontoxic with stable vital signs. He has diffuse abdominal tenderness but no peritoneal signs. CBC and BMP are unremarkable. CT shows findings of partial versus early complete small bowel obstruction with a transition point in the mid ileal level. Case was discussed with Dr. Andrews who reviewed the films and recommended NG tube placement. Since he is on anticoagulation there is no indication for emergent surgery and she recommended admission to medicine. Case was discussed with the hospitalist. Differential: Ileus, bowel obstruction, diverticulitis among others Consults: General surgery, hospitalist I have personally performed a face to face assessment of the patient and have reviewed the JORDAN Note. I performed a substantive portion of the visit including all aspects of the following. My king findings include: History is Patient is a 73-year-old male with history of prior abdominal surgery and obstruction presenting with nausea, vomiting and abdominal pain as well as constipation. His abdomen is distended with hypoactive bowel sounds on exam. He otherwise nontoxic-appearing and clinically does not appear dehydrated. No peritoneal findings on physical exam. Lab work largely unremarkable however CT of the abdomen pelvis is concerning for partial versus complete small bowel obstruction with transition point in the mid ileal level. Surgical consult is obtained and NG tube was placed. Will be treated nonoperatively at this time. Patient agreeable this plan of care. Patient mid to the hospital service. Other additions or changes: [None] X-ray of the abdomen after NG tube placement reviewed by myself shows appropriate placement of the NG tube in the stomach Lab Data Labs: Laboratory Results - last 24 hr 10/24/23 10/24/23 13:04 14:30 WBC 9.0 RBC 4.97 Hgb 15.8 Hct 48.2 MCV 97.0 H MCH 31.8 MCHC 32.8 RDW Std Deviation 46.8 H RDW Coeff of Brock 13.1 Plt Count 237 MPV 10.4 Immature Gran % (Auto) 0.300 Neut % (Auto) 67.4 Lymph % (Auto) 20.8 [place] % (Auto) 10.7 H Eos % (Auto) 0.4 Baso % (Auto) 0.4 Absolute Neuts (auto) 6.0 Absolute Lymphs (auto) 1.86 Nucleated RBC % 0 Sodium 137 Potassium 4.4 Chloride 105 Carbon Dioxide 26.0 Anion Gap 6 BUN 22 H Creatinine 1.01 Estim Creat Clear Calc 80.32 Est GFR (MDRD) Af Amer 93 Est GFR (MDRD) Non-Af 77 BUN/Creatinine Ratio 21.8 H Glucose 174 H Calcium 9.0 Total Bilirubin 1.20 H AST 25 ALT 23 Alkaline Phosphatase 49 Total Protein 7.5 Albumin 3.3 Globulin 4.2 Albumin/Globulin Ratio 0.8 L Lipase 13 Urine Color Yellow Urine Clarity Clear Urine pH 5.0 Ur Specific [place] 1.025 Urine Protein 30 H Urine Glucose (UA) Normal Urine Ketones 5 H Urine Occult Blood Negative Urine Nitrite Negative Urine Bilirubin 1 H Urine Urobilinogen 1 H Ur Leukocyte Esterase 25 H Urine RBC 0 SEEN Urine WBC 0-5 SEEN Ur Squamous Epith Cells 0 SEEN Calcium Oxalate Crystal 3+ Urine Bacteria 1+ Urine Mucus 2+ Radiography Diagnostic Testing: Clinical Impression(s) from Imaging Studies Abdomen/Pelvis CT 10/24/23 12:56 IMPRESSION: Findings in keeping with the partial versus early complete small bowel obstruction with the transition point in the mid ileal level. Gas and fecal material are seen in the colon. There is fluid distention of the stomach. Fatty infiltration of liver. Nonobstructive Electronically Signed: Charlie De La Rosa MD at 14:47 EST , Discharge Plan Dx/Rx/DC Orders Clinical Impression: Complete small bowel obstruction Disposition Disposition: Acute Care Hospital [facility] Discharge Date/Time: 10/24/23 15:59
[2023-10-24 13:13] LABS: Absolute Lymphocyte Count 1.86 X10^3/uL (0.83-4.51); Basophil# 0.04 X10^3/uL; Basophil% 0.4 % (0-1); Eosinophil# 0.04 X10^3/uL; Eosinophils% 0.4 % (0-5); Hematocrit 48.2 % (40-54); Hemoglobin 15.8 g/dL (13.0-16.5); Lymphocyte # 1.86 X10^3/ul (0.83-4.51); Lymphocyte % 20.8 % (19-41); Mean Corp Hgb Conc 32.8 g/dL (32-36); Mean Corpuscular Hgb 31.8 pg (27.0-32.0); Mean Platelet Vol. 10.4 fl (6.2-12.0); Monocyte# 0.96 X10^3/uL; Monocyte% 10.7 % (0-10); NRBC Flagged by Analyzer 0 % (0-5); Neutrophil # 6.02 X10^3/uL (2.7-7.7); Neutrophil % 67.4 % (47-70); Platelet Count 237 K/mm3 (150-450); RBC Distribution Width CV 13.1 % (11.6-14.6); RBC Distribution Width SD 46.8 fl (35.1-43.9); Red Blood Count 4.97 M/mm3 (4.6-6.2)
[2023-10-24 13:37] LABS: ALB/GLOB Ratio 0.8 RATIO (0.9-2.4); AST(SGOT) 25 U/L (15-37); Alanine Aminotransfer ALT/SGPT 23 U/L (16-61); Albumin, Serum 3.3 g/dL (3.2-5.0); Alkaline Phosphatase 49 U/L (45-117); Anion Gap 6 (5-15); BUN 22 mg/dL (7-18); BUN/Creat Ratio 21.8 RATIO (10-20); Chloride 105 mmol/L (98-107); Creatinine, Serum 1.01 mg/dL (0.70-1.30); EST Glomerular Filtration Rate 77 mL/min (>60); Est Glom Filt Rate - Afr Amer 93 mL/min (>60); Estimated Creatinine Clearance 80.32 ml/min; Globulin 4.2 g/dL (2.2-4.2); Glucose 174 mg/dL (74-106); Lipase 13 U/L (13-75); Potassium 4.4 mmol/L (3.5-5.1); Protein, Total 7.5 g/dL (6.4-8.2); Sodium Level 137 mmol/L (136-145)
--- OUTSIDE RECORDS SUMMARY | 2023-10-24 13:41 | XMS RPT_ITS | CCD ---
Author Name Unknown Address [address] [place] [address] Organization [facility] Care Team Providers Care Pneumatic Tester Mechanic Name Role Phone Linden Velázquez Primary Care Provider [phone] JANUSZ BARAHONA Attending Unavailable LINDEN VELÁZQUEZ Primary Care Unavailable LINDEN VELÁZQUEZ Attending Unavailable LINDEN VELÁZQUEZ Primary Care Unavailable Allergies Allergy Classification Reported Allergen(s) Allergy Type Date of Onset Reaction(s) Facility Dihydrofolate Reductase Inhibitors (antibiotic) (1 source) Trimethoprim Drug Allergy 11-24-19 19 [facility] Opioid Agonists (1 source) oxyCODONE Drug Allergy 11-24-19 19 Unknown [facility] Sulfonamides (antibiotic) (1 source) Sulfamethoxazole Drug Allergy 11-24-19 19 [facility] (5 sources) oxyCODONE Drug Allergy 10-28-19 19 Unknown [facility] (3 sources) Sulfamethoxazole Drug Allergy 11-24-19 19 [facility] (5 sources) Trimethoprim Drug Allergy 10-28-19 19 [facility] (2 sources) Sulfamethoxazole Allergy to substance 11-14-19 17 [facility] (2 sources) Sulfamethoxazole / Trimethoprim Drug Allergy 12-19-19 13 Rash, Fever, [facility] Medications Current Medications Medication Drug Class(es) Dates Sig (Normalized) Sig (Original) acetaminophen 500 mg oral tablet (6 sources) take 2 tablets by mouth every eight hours as needed acetaminophen (Tylenol) 500 MG tablet Take 1,000 mg by mouth every 8 hours as needed. 0 Active Completed/Discontinued Medications Medication Drug Class(es) Dates Sig (Normalized) Sig (Original) apixaban 5 mg oral tablet (4 sources) Factor Xa Inhibitor Start: 11-21-2018 take 1 tablet by mouth twice daily ELIQUIS 5 mg tab(s) Take 5 mg by mouth twice daily. 11 11/21/2018 Active Problems Active Problems Problem Classification Problem Date Documented Da te Episodic/Chronic Cardiac dysrhythmias (19 sources) Atrial flutter; Translations: [Paroxysmal atrial fibrillation] Onset: 10-30-2016 01-27-2019 Chronic Cardiac dysrhythmias (1 source) Typical atrial flutter; Translations: [Typical atrial flutter] Onset: 01-25-2020 01-25-2020 Diabetes mellitus without complication (3 sources) Type 2 diabetes mellitus without complication; Translations: [Type 2 diabetes mellitus without complications] Onset: 12-16-2022 Chronic Diabetes mellitus without complication (2 sources) Prediabetes; Translations: [Prediabetes] Onset: 07-02-2023 Episodic Disorders of lipid metabolism (3 sources) Hyperlipidemia; Translations: [Hyperlipidemia, unspecified] Onset: 12-16-2022 Chronic Essential hypertension (6 sources) Hypertensive disorder; Translations: [Essential (primary) hypertension] Onset: 01-27-2019 01-27-2019 Chronic Other aftercare (2 sources) half-way (current) use of anticoagulants; Translations: [oysterman (current) use of anticoagulants] Onset: 07-02-2023 Episodic Other lower respiratory disease (1 source) Dyspnea on exertion; Translations: [Other forms of dyspnea] Episodic Other screening for suspected conditions (not mental disorders or infectious disease) (2 sources) Encounter for screening for malignant neoplasm of prostate; Translations: [Encounter for screening for malignant neoplasm of prostate] Onset: 07-02-2023 Episodic Phlebitis; thrombophlebitis and thromboembolism (8 sources) H/O: thrombosis; Translations: [Personal history of other venous thrombosis and embolism] Onset: 12-18-2015 04-19-2014 Episodic Residual codes; unclassified (1 source) At risk of disease; Translations: [At risk for stroke] Onset: 07-09-2019 07-09-2019 Spondylosis; intervertebral disc disorders; other back problems (4 sources) Degenerative lumbar spinal stenosis; Translations: [Spinal stenosis, lumbar region without neurogenic claudication] Onset: 12-18-2015 06-20-2022 Episodic Past or Other Problems Problem Classification Problem Date Documented Date Episodic/Chronic Other aftercare (5 sources) Long-term current use of anticoagulant; Translations: [half-way (current) use of anticoagulants] Onset: 01-25-2020 01-25-2020 Episodic Other aftercare (2 sources) Patient encounter status; Translations: [half-way (current) use of non-steroidal anti-inflammatories (NSAID)] Onset: 12-18-2015 06-20-2022 Episodic Other and unspecified benign neoplasm (2 sources) History of polyp of colon; Translations: [Personal history of colonic polyps] Onset: 08-21-2016 06-20-2022 Episodic Other circulatory disease (3 sources) Labile systemic arterial hypertension; Translations: [Other specified symptoms and signs involving the circulatory and respiratory systems] Onset: 04-24-2015 Episodic Other circulatory disease (2 sources) Other specified symptoms and signs involving the circulatory and respiratory systems; Translations: [Other specified symptoms and signs involving the circulatory and respiratory systems] Onset: 06-21-2022 Episodic Other lower respiratory disease (2 sources) Solitary nodule of lung; Translations: [Solitary pulmonary nodule] Onset: 09-23-2019 06-20-2022 Episodic Other lower respiratory disease (2 sources) Other forms of dyspnea; Translations: [Other forms of dyspnea] Onset: 12-16-2022 Episodic Other non-epithelial cancer of skin (2 sources) History of malignant basal cell neoplasm of skin; Translations: [Personal history of other malignant neoplasm of skin] Onset: 10-24-2021 06-20-2022 Episodic Other non-traumatic joint disorders (4 sources) Arthralgia of the ankle and/or foot; Translations: [Pain in unspecified ankle and joints of unspecified foot] Onset: 10-12-2010 10-12-2010 Episodic Pulmonary heart disease (6 sources) H/O: pulmonary embolus; Translations: [Personal history of pulmonary embolism] Onset: 12-18-2015 01-27-2019 Episodic Residual codes; unclassified (5 sources) H/O cardiac surgery; Translations: [Other specified postprocedural states] Onset: 01-25-2020 01-25-2020 Episodic Residual codes; unclassified (4 sources) Other specified personal risk factors, not elsewhere classified; Translations: [Other specified personal history presenting hazards to health] Onset: 07-09-2019 Episodic Residual codes; unclassified (2 sources) History of diabetes mellitus in child of subject; Translations: [Family history of diabetes mellitus] Onset: 08-21-2016 06-20-2022 Episodic Results Test Name Value Interpretation Reference Range Facil ity Vital Signs Date Time Vital Sign Value Performing Clinician Junior avila 12-16-2022 09:16-0400 Diastolic blood pressure 78 mm[Hg] Janusz Paulie CYBER INTELLIGENCE ANALYST - SSIS ETL DEVELOPER Work Phone: [facility] [email or web address] 12-16-2022 09:16-0400 Systolic blood pressure 144 mm[Hg] Janusz Humbertoie CYBER INTELLIGENCE ANALYST - SSIS ETL DEVELOPER Work Phone: [facility] 12-16-2022 07:35-0400 Body height 180.3 cm Janusz Humbertoie CYBER INTELLIGENCE ANALYST - SSIS ETL DEVELOPER Work Phone: [facility] [email or web address] 12-16-2022 07:35-0400 Body mass index (BMI) [Ratio] 31.58 kg/m2 Janusz Tokie CYBER INTELLIGENCE ANALYST - SSIS ETL DEVELOPER Work Phone: [facility] 12-16-2022 07:35-0400 Body temperature 97.81 [degF] Janusz Paulie CYBER INTELLIGENCE ANALYST - SSIS ETL DEVELOPER Work Phone: [facility] 12-16-2022 07:35-0400 Body weight 102.69 kg Janusz Humbertoie CYBER INTELLIGENCE ANALYST - SSIS ETL DEVELOPER Work Phone: [facility] [email or web address] 12-16-2022 07:35-0400 Heart rate 68 /min Janusz Humbertoie CYBER INTELLIGENCE ANALYST - SSIS ETL DEVELOPER Work Phone: [facility] 12-16-2022 07:35-0400 SaO2% (BldA) [Mass fraction] 96 % Janusz Paulie CYBER INTELLIGENCE ANALYST - SSIS ETL DEVELOPER Work Phone: [facility] 02-20-2022 15:56-0400 Body height 180.3 cm Nikolas Guerrero MD Work Phone: [facility] 02-20-2022 15:56-0400 Body weight 102.06 kg Nikolas Guerrero MD Work Phone: [facility] 02-20-2022 15:56-0400 Diastolic blood pressure 80 mm[Hg] Nikolas Guerrero MD Work Phone: [facility] 02-20-2022 15:56-0400 Heart rate 68 /min Nikolas Guerrero MD Work Phone: [facility] 02-20-2022 15:56-0400 SaO2% (BldA) [Mass fraction] 95 % Nikolas Guerrero MD Work Phone: [facility] 02-20-2022 15:56-0400 Systolic blood pressure 140 mm[Hg] Nikolas Guerrero MD Work Phone: [facility] 02-20-2021 15:53-0400 Body height 180.3 cm Slim Loaiza APRN.PREMIX CONCRETE BATCHER Work Phone: [facility] 02-20-2021 15:53-0400 Body weight 104.78 kg Slim Loaiza APRN.PREMIX CONCRETE BATCHER Work Phone: [facility] 02-20-2021 15:53-0400 Diastolic blood pressure 80 mm[Hg] Slim Loaiza APRN.PREMIX CONCRETE BATCHER Work Phone: [facility] 02-20-2021 15:53-0400 Heart rate 75 /min Slim Loaiza APRN.PREMIX CONCRETE BATCHER Work Phone: [facility] 02-20-2021 15:53-0400 SaO2% (BldA) [Mass fraction] 95 % Slim Loaiza APRN.PREMIX CONCRETE BATCHER Work Phone: [facility] 02-20-2021 15:53-0400 Systolic blood pressure 140 mm[Hg] Slim Loaiza APRN.PREMIX CONCRETE BATCHER Work Phone: [facility] Encounters Encounter Date Encounter Type Care Provider Facility Start: 07-02-2023 End: 07-02-2023 ambulatory LINDEN VELÁZQUEZ [facility] Start: 01-22-2023 Refill Linden gibson DO Work Phone: [facility] Start: 12-16-2022 End: 12-16-2022 ambulatory JANUSZ BARAHONA [facility] Start: 12-16-2022 End: 12-16-2022 Patient encounter procedure Janusz M Tokie CYBER INTELLIGENCE ANALYST - SSIS ETL DEVELOPER Work Phone: [facility] Procedures Date Procedure Procedure Detail Performing Clinician Start: 12-16-2022 Adult depression screening assessment Linden Velázquez DO Work Phone: Start: 12-16-2022 Lipid 1996 panel - Serum or Plasma Linden Velázquez DO Work Phone: Start: 02-20-2022 Ecg routine ecg w/le ast 12 lds w/i&r Nikolas Guerrero MD Work Phone: Start: 12-12-2021 Lipid 1996 panel - Serum or Plasma Janusz Barahona CYBER INTELLIGENCE ANALYST - SSIS ETL DEVELOPER Work Phone: Start: 02-20-2021 Ecg routine ecg w/le ast 12 lds w/i&r Slim Loaiza APRNWilnerPREMIX CONCRETE BATCHER Work Phone: Plan of Treatment Date Care Activity Detail Author Start: 12-12-2024 DIABETES SCREEN DIABETES SCREEN [facility] Start: 01-16-2024 Medicare Annual Well ness (AWV) Medicare Annual Wellness (AWV) [facility] Start: 12-25-2023 Glaucoma screening Diabetes: R etinopathy Screening [facility] Start: 12-17-2023 Depression Screening Depression Scre ening [facility] Start: 12-17-2023 Lipid panel Lipid Panel [facility] Start: 03-17-2023 Hemoglobin A1c measurement Diabetes: Hemoglobin A1C [facility] Start: 12-16-2022 End: 12-17-2023 CBC panel - Blood by Automated count CBC Lab Routine Dyspnea on exertion Expected: 12/16/2022 (Approximate), Expires: 12/17/2023 [facility] Immunizations Immunization Date Immunization Notes Care Provider Fa fab 05-23-2021 Influenza, Seasonal, Quadrivalent, Adjuvanted Janusz Barahona CYBER INTELLIGENCE ANALYST - SSIS ETL DEVELOPER Work Phone: [facility] 05-23-2021 zoster vaccine recombinant S gonzález Esequiel CYBER INTELLIGENCE ANALYST - SSIS ETL DEVELOPER Work Phone: [facility] 03-19-2021 zoster vaccine recombinant S gonzález Tokmathew CYBER INTELLIGENCE ANALYST - SSIS ETL DEVELOPER Work Phone: [facility] 05-24-2020 influenza, injectabl e, quadrivalent, preservative free Janusz Tokie CYBER INTELLIGENCE ANALYST - SSIS ETL DEVELOPER Work Phone: [facility] 07-26-2019 pneumococcal polysac charide vaccine, 23 valent Janusz Tokie CYBER INTELLIGENCE ANALYST - SSIS ETL DEVELOPER Work Phone: [facility] 06-01-2019 influenza, injectabl e, quadrivalent, preservative free Janusz Tokie CYBER INTELLIGENCE ANALYST - SSIS ETL DEVELOPER Work Phone: [facility] 06-03-2018 Seasonal trivalent influenza vaccine, adjuvanted, preservative free Janusz Tokie CYBER INTELLIGENCE ANALYST - SSIS ETL DEVELOPER Work Phone: [facility] 04-09-2018 pneumococcal conjuga te vaccine, 13 valent Janusz Tokie CYBER INTELLIGENCE ANALYST - SSIS ETL DEVELOPER Work Phone: [facility] 07-02-2017 influenza, injectabl e, quadrivalent, preservative free Janusz Tokie CYBER INTELLIGENCE ANALYST - SSIS ETL DEVELOPER Work Phone: [facility] 07-23-2016 influenza, seasonal, injectable Janusz Tokie CYBER INTELLIGENCE ANALYST - SSIS ETL DEVELOPER Work Phone: [facility] [email or web address] 06-04-2016 influenza, high dose seasonal, preservative-free Janusz Tokie CYBER INTELLIGENCE ANALYST - SSIS ETL DEVELOPER Work Phone: [facility] [email or web address] Payers Date Payer Category Payer Unknown [employer] [facility] MEDICARE SUPPLEMENT [id number] 2022-Present [address] [place] [address] Supplement [id number] 2022 Unknown [id number] 2016 Medicare [id number] 2016 Medicare MEDICARE MEDICAR E PART A AND B [id number] 2016-Present [address] [place] [address] Medicare [id number] 2016 Medicare [id number] 2016 Private Health Insurance [employer]YES MEDICARE SUPPLEMENT [id number] 2016-Present Indemnity [id number] Social History Date Type Detail Facility Start: 04-19-2014 End: 01-26-2020 Tobacco smoking status NHIS Never smoker [facility] Work Phone: Start: 04-19-2014 End: 01-26-2020 Tobacco use and exposure Never used [facility] Start: 01-26-2020 End: 12-16-2022 Alcohol intake Current non-drinker of alcohol (finding) [facility] Start: 1950 Sex Assigned At Not on file [facility] Start: 02-10-2022 End: 12-16-2022 Exposure to SARS-CoV-2 (event) Not sure [facility] Start: 12-16-[address] [facility] Start: 12-16-2022 History SDOH Alcohol Std Drinks 0 [facility] Start: 1950 Sex Assigned At Male [facility] Clinical Notes 01-19-2019 to 01-22-2023 Telephone Encounter - Blaire Lawrence MA - 01/22/2023 5:31 PM EDTTelephone Encounter - Blaire Lawrence MA - 01/22/2023 5:31 PM EDTTelephone Encounter - Ava Galvez MA - 01/22/2023 9:05 AM EDT Note Date & Type Note Facility 01-22-2023 Telephone encounter Note Please assist [facility] 01-22-2023 Miscellaneous Notes Please assist -Patient needs checkup with me as well. I know he had the Medicare annual wellness exam but he needs to check with me also once a year Rx loaded Medication name: carvedilol (Coreg) 12.5 MG tablet Medication dosage: 12.5 mg (Miligrams Monthly quantity needed: 75 How many day supply requestin days Medication route: oral (PO) Medication administration time(s): TAKE 1&1/2 TABLET IN THE MORNING & 1 TABLET IN THE EVENING If taking medication PRN, reason for taking medication: TAKE 1&1/2 TABLET IN THE MORNING & 1 TABLET IN THE EVENING If this is a controlled substance do you receive this or any other controlled medication from any other doctor or facility: No Ordering provider: Linden Velázquez DO Date of last office visit: 12/16/22 Date of next office visit: n/a Date of last refill: (see medication tab): 12/12/21 Updated/Validated preferred pharmacy: Yes Patient instructed to contact the pharmacy prior to picking up the medication: Yes documented in this encounter [facility] [email or web address] 01-22-2023 Telephone encounter Note -Patient needs checkup with me as well. I know he had the Medicare annual wellness exam but he needs to check with me also once a year [facility] [email or web address] 01-22-2023 Telephone encounter Note Rx loaded [facility] [email or web address] 01-22-2023 Telephone encounter Note Medication name: carvedilol (Coreg) 12.5 MG tablet Medication dosage: 12.5 mg (Miligrams Monthly quantity needed: 75 How many day supply requestin days Medication route: oral (PO) Medication administration time(s): TAKE 1&1/2 TABLET IN THE MORNING & 1 TABLET IN THE EVENING If taking medication PRN, reason for taking medication: TAKE 1&1/2 TABLET IN THE MORNING & 1 TABLET IN THE EVENING If this is a controlled substance do you receive this or any other controlled medication from any other doctor or facility: No Ordering provider: Linden Velázquez DO Date of last office visit: 12/16/22 Date of next office visit: n/a Date of last refill: (see medication tab): 12/12/21 Updated/Validated preferred pharmacy: Yes Patient instructed to contact the pharmacy prior to picking up the medication: Yes [facility] 12-16-2022 History of Presen t illness Narrative Images from the original note were not included. [facility] [address] [place] [address] Dept: [phone] Dept Chief Complaint: Jefferson Barreto is an 72 y.o. male here for an annual wellness visit. Overall Jewel is feeling pretty well. Only acute concern is over the last year he has noticed that he gets a little winded with exertion. Examples include going up stairs or bending over and tying his shoes. Gets short of breath for short period of time, then resolves on its own with rest. No other associated symptoms with it. Assessment/Plan : Problem List Items Addressed This Visit Circulatory Labile hypertension Chronic, controlled Continue carvedilol as ordered Follow-up with cardiology as scheduled Relevant Orders Comprehensive metabolic panel Other Visit Diagnoses Medicare annual wellness visit, subsequent - Primary Type 2 diabetes mellitus without complication, without long-term current use of insulin ([facility]) (HCC) Chronic, controlled Controlled with diet and exercise Repeat A1c ordered Relevant Orders Hemoglobin A1c Comprehensive metabolic panel Hyperlipidemia, unspecified hyperlipidemia type Chronic, controlled Fasting lipids ordered Relevant Orders Lipid panel Dyspnea on exertion Uncontrolled Labs ordered Continue following with cardiology in February, make them aware Relevant Orders CBC NT PRO BNP I have reviewed and reconciled the medication list with the patient today. Current Outpatient Medications Medication Sig Dispense Refill carvedilol (Coreg) 12.5 MG tablet TAKE 1&1/2 TABLET IN THE MORNING & 1 TABLET IN THE EVENING psyllium (Metamucil) 48.57 % powder rivaroxaban (Xarelto) 20 MG tablet acetaminophen (Tylenol) 500 MG tablet Take 1,000 mg by mouth every 8 hours as needed. chlorhexidine (Peridex) 0.12 % solution RINSE WITH 15ML FOR 30 SECONDS AND SPIT, USE TWICE DAILY cholecalciferol (D3-5) 5,000 Units tablet Take 5,000 Units by mouth in the morning. therapeutic multivitamin-minerals (Theragran-M) tablet Take 1 tablet by mouth daily. No current facility-administered medications for this visit. Allergies Meds Problems The following health maintenance schedule was reviewed with the patient and provided in printed form in the after visit summary: Health Maintenance Topic Date Due Hepatitis B Vaccines (1 of 3 - 3-dose series) Never done Medicare Annual Wellness (AWV) Never done Colorectal Cancer Screening Never done Diabetes: Foot Exam Never done Diabetes: Dental Exam Never done Hepatitis C Screening Never done DTaP/Tdap/Td Vaccines (1 - Tdap) Never done Diabetes: Urine Protein Screening Never done Diabetes: Hemoglobin A1C 03/13/2022 COVID-19 Vaccine (5 - Booster for Moderna series) 04/11/2022 Lipid Panel 12/12/2022 Diabetes: Retinopathy Screening 12/25/2023 Influenza Vaccine Completed Pneumococcal Vaccine: 65+ Years Completed Zoster Vaccines Completed HIB Vaccines Aged Out IPV Vaccines Aged Out Hepatitis A Vaccines Aged Out Meningococcal Vaccine Aged Out Rotavirus Vaccines Aged Out HPV Vaccines Aged Out List of current healthcare providers: Patient Care Team: Linden Velázquez DO as PCP - General Orders Placed This Encounter Procedures Hemoglobin A1c Standing Status: Future Number of Occurrences: 1 Standing Expiration Date: 12/17/2023 Comprehensive metabolic panel Standing Status: Future Number of Occurrences: 1 Standing Expiration Date: 12/17/2023 Lipid panel Standing Status: Future Number of Occurrences: 1 Standing Expiration Date: 12/17/2023 CBC Standing Status: Future Number of Occurrences: 1 Standing Expiration Date: 12/17/2023 NT PRO BNP Standing Status: Future Number of Occurrences: 1 Standing Expiration Date: 12/17/2023 Subjective : Review of Systems Constitutional: Negative for fever. Respiratory: Dyspnea on exertion Cardiovascular: Negative for chest pain and palpitations. Gastrointestinal: Negative for abdominal pain, diarrhea, nausea and vomiting. Genitourinary: Negative for difficulty urinating and hematuria. All other systems reviewed and are negative. Physical Exam Vitals reviewed. Constitutional: General: He is not in acute distress. Appearance: Normal appearance. Cardiovascular: Rate and Rhythm: Normal rate and regular rhythm. Pulses: Normal pulses. Pulmonary: Effort: Pulmonary effort is normal. No respiratory distress. Breath sounds: Normal breath sounds. No wheezing or rhonchi. Abdominal: General: Bowel sounds are normal. Tenderness: There is no abdominal tenderness. Skin: General: Skin is warm and dry. Neurological: General: No focal deficit present. Mental Status: He is alert. Psychiatric: Mood and Affect: Mood normal. Behavior: Behavior normal. Health Risk Assessment: General In general, how would you say your health is?: Good In the past 7 days, have you experienced any of the following: New or Increased Pain, New or Increased Fatigue, Loneliness, Social Isolation, Stress or Anger?: No Do you get the social and emotional suppport you need?: Yes Interventions: No concerns noted above Health Habits / Nutrition On average, how many days per week do you engage in moderate to strenous exercise (like a brisk walk)?: 5 days On average, how man minutes do you engage in exercise at this level?: 60 min Have you lost any weight without trying in the past 3 months? : No Have you seen the dentist within the past year?: Yes Interventions: No concerns noted above Hearing / Vision Do you or your family notice any trouble with your hearing that hasn't been managed with hearing aids?: No Do you have difficulty driving, watching TV, or doing any of your daily activities because of your eyesight?: No Have you had an eye exam within the past year?: Yes No results found. Interventions: No concerns noted above Safety Do you have a working smoke detector?: Yes Do you have any tripping hazards - loose or unsecured carpets or rugs?: (!) Yes Do you have any tripping hazards - clutter in doorways, halls, or stairs?: No Do you have either shower bars, grab bars, non-slip mats or non-slip surfaces in your shower or bathtub? : Yes Do all your stairways have a railing or banister? : Yes Do you fasten your seatbelt when you are in a car?: Yes Interventions: Home safety tips provided ADL In the past 7 days, did you need help from others to perform any of the following everyday activities: Eating, dressing, grooming,bathing, toileting, or walking / balance? : No In the past 7 days, did you need help from others to take care of any of the following: laundry, housekeeping, banking / finances,shopping, telephone use, food preparation, transportation, or taking medications? : No Interventions: No concerns noted above Living Will Do you have a living will?: Yes Interventions: Has a living will, should bring in copy Cognitive: Cognitive Screening: Mini-Cog Clock Drawing Test (CDT): 2 Words Recalled: 3 Total Score: 5 Total Score Interpretation: Normal Mini-Cog Interventions: No concerns noted above Fall Risk: Fall Risk One or more falls in the last year:: Yes Advised to use a cane or walker to get around safely:: No Feels unsteady when walking:: No Steadies self on furniture while walking at home:: No Worried about falling:: No Interventions: Home safety tips provided Depression Screening: Over the past 2 weeks, how often have you been bothered by any of the following problems? Little interest or pleasure in doing things: Not at all Feeling down, depressed, or hopeless: Not at all Patient Health Questionnaire-2 Score: 0 Interventions: Negative depression screening Tobacco Use: Social History Tobacco Use Smoking Status Never Smokeless Tobacco Never Interventions: Denies tobacco use Alcohol Use: Audit Alcohol Screening Q2: How many drinks containing alcohol do you have on a typical day when you are drinking?: Patient does not drink Interventions: Denies alcohol use Drug Use: Drug Abuse Screening Test (DAST-10) Have you used drugs other than those required for medical reasons?: No Do you use more than one drug at a time?: No Are you always able to stop using drugs when you want to?: No Have you had blackouts or flashbacks as a result of drug use?: No Do you ever feel bad or guilty about your drug use?: No Does your spouse (or parents) ever complain about your involvement with drugs?: No Have you ever neglected your family or missed work because of your use of drugs?: No Have you engaged in illegal activities in order to obtain drugs?: No Have you ever experienced withdrawal symptoms as a result of heavy drug intake?: No Have you had medical problems as a result of your drug use (e.g., memory loss, hepatitis, convulsions, bleeding, etc.)?: No DAST-10 Score: 1 Interventions: Denies illicit drug use Objective : BP (!) 144/78 Pulse 68 Temp 36.6 C (97.8 F) (Temporal) Ht 5' 11 (1.803 m) Wt 226 lb 6.4 oz (103 kg) SpO2 96% BMI 31.58 kg/m No results found. documented in this encounter [facility] [email or web address] 02-20-2022 Note HNO ID: [id number] Author: Nikolas Guerrero MD Service: ? Author Type: Physician Type: Progress Notes Filed: 02/20/2022 4:31 PM Note Text: This note was created using [employer]. Subjective Jefferson Barreto is a 71 year old male. HPI Prior history, edited as needed: 71 year-old patient of Dr. Reji Patel with history of essential hypertension, obesity and suspected sleep apnea who was diagnosed with paroxysmal atrial fibrillation several years ago when he started experiencing palpitation, exertional dyspnea and fatigue. In the last several months he has been experiencing ongoing symptoms. Presently he is able to walk up a flight of stairs, but more exertion would make him short of breath. He has no known coronary disease, and pharmacologic nuclear stress test in 2016 showed preserved LV systolic function and no perfusion defects. Of note, an echocardiogram at the same time showed normal LVEF and mild dilated left atrium. The patient underwent PVI, left atrial roof line and CTI ablation in January 2019. He had an early recurrence, was started on amiodarone and cardioverted. His MEM1-HT1-YSYv score is 2. Interval history: Mr. Barreto presents for follow-up accompanied by his . He remained in sinus rhythm and has not required additional ablations or antiarrhythmic therapy. He remains on oral anticoagulation with Eliquis with no obvious bleeding complications. ECG today shows sinus rhythm at 65 beats minute. Mr. Barreto continues doing well from EP standpoint. He will continue follow-up with his television cabinet finisher and we can see him in EPS follow-up on as-needed basis. PAST MEDICAL HISTORY Diagnosis Date - Atrial fibrillation (HCC) - Atrial flutter with rapid ventricular response (HCC) - Dyspnea on exertion - History of DVT (deep vein thrombosis) - History of pulmonary embolism Following ankle fusion - HTN (hypertension) - half-way (current) use of anticoagulants - Palpitations - Paroxysmal atrial fibrillation (HCC) - Paroxysmal atrial flutter (HCC) - Spinal stenosis Current Outpatient Medications Medication Sig Dispense Refill - Zinc 50 mg tab Take 50 mg by mouth once daily. - carvedilol (COREG) 12.5 mg tablet TAKE 1AND1/2 TABLET IN THE MORNING AND 1 TABLET IN THE EVENING 225 tablet 1 - sildenafil (VIAGRA) 100 mg tablet Take 50 mg by mouth as needed. - cholecalciferol (VITAMIN D-3) 5,000 unit tab Take 5,000 Units by mouth once daily. - acetaminophen (TYLENOL EXTRA STRENGTH) 500 mg tablet Take 1,000 mg by mouth every 8 hours as needed. - ELIQUIS 5 mg tab(s) Take 5 mg by mouth twice daily. 11 - therapeutic multivitamin w/ iron 27-0.4 mg tablet Take 1 tablet by mouth once daily. - Saw [place] 160 mg capsule Take 320 mg by mouth once daily. (Patient not taking: Reported on 02/20/2022 ) - turmeric root extract 500 mg cap Take 1 capsule by mouth once daily. (Patient not taking: Reported on 02/20/2022 ) No current facility-administered medications for this visit. Review of Systems Constitutional: Negative for fatigue. HENT: Negative for hearing loss. Respiratory: Negative for shortness of breath. Cardiovascular: Negative for chest pain and palpitations. Gastrointestinal: Negative for abdominal pain. Endocrine: Negative for cold intolerance. Genitourinary: Negative for hematuria. Skin: Negative for pallor. Neurological: Negative for syncope. Psychiatric/Behavioral: The patient is not nervous/anxious. Objective BP 140/80 (BP Site: Left Arm, BP Position: Sitting, BP Cuff Size: Large Adult) Pulse 68 Ht 5' 11 (1.803 m) Wt 225 lb (102.1 kg) SpO2 95% BMI 31.38 kg/m? Physical Exam Constitutional: Appearance: Normal appearance. HENT: Head: Normocephalic and atraumatic. Eyes: Conjunctiva/sclera: Conjunctivae normal. Cardiovascular: Rate and Rhythm: Normal rate and regular rhythm. Pulmonary: Effort: Pulmonary effort is normal. No respiratory distress. Breath sounds: No stridor. Skin: General: Skin is dry. Coloration: Skin is not pale. Neurological: Mental Status: He is alert and oriented to person, place, and time. Psychiatric: Mood and Affect: Mood normal. Assessment and Plan As above. [facility] 02-20-2022 History of Presen t illness Narrative This note was created using [employer]. Subjective Jefferson Barreto is a 71 year old male. HPI Prior history, edited as needed: 71 year-old patient of Dr. Reji Patel with history of essential hypertension, obesity and suspected sleep apnea who was diagnosed with paroxysmal atrial fibrillation several years ago when he started experiencing palpitation, exertional dyspnea and fatigue. In the last several months he has been experiencing ongoing symptoms. Presently he is able to walk up a flight of stairs, but more exertion would make him short of breath. He has no known coronary disease, and pharmacologic nuclear stress test in 2016 showed preserved LV systolic function and no perfusion defects. Of note, an echocardiogram at the same time showed normal LVEF and mild dilated left atrium. The patient underwent PVI, left atrial roof line and CTI ablation in January 2019. He had an early recurrence, was started on amiodarone and cardioverted. His YLM0-UF5-RDMs score is 2. Interval history: Mr. Barreto presents for follow-up accompanied by his . He remained in sinus rhythm and has not required additional ablations or antiarrhythmic therapy. He remains on oral anticoagulation with Eliquis with no obvious bleeding complications. ECG today shows sinus rhythm at 65 beats minute. Mr. Barreto continues doing well from EP standpoint. He will continue follow-up with his television cabinet finisher and we can see him in EPS follow-up on as-needed basis. PAST MEDICAL HISTORY Diagnosis Date Atrial fibrillation (HCC) Atrial flutter with rapid ventricular response (HCC) Dyspnea on exertion History of DVT (deep vein thrombosis) History of pulmonary embolism Following ankle fusion HTN (hypertension) half-way (current) use of anticoagulants Palpitations Paroxysmal atrial fibrillation (HCC) Paroxysmal atrial flutter (HCC) Spinal stenosis Current Outpatient Medications Medication Sig Dispense Refill Zinc 50 mg tab Take 50 mg by mouth once daily. carvedilol (COREG) 12.5 mg tablet TAKE 1&1/2 TABLET IN THE MORNING & 1 TABLET IN THE EVENING 225 tablet 1 sildenafil (VIAGRA) 100 mg tablet Take 50 mg by mouth as needed. cholecalciferol (VITAMIN D-3) 5,000 unit tab Take 5,000 Units by mouth once daily. acetaminophen (TYLENOL EXTRA STRENGTH) 500 mg tablet Take 1,000 mg by mouth every 8 hours as needed. ELIQUIS 5 mg tab(s) Take 5 mg by mouth twice daily. 11 therapeutic multivitamin w/ iron 27-0.4 mg tablet Take 1 tablet by mouth once daily. Saw [place] 160 mg capsule Take 320 mg by mouth once daily. (Patient not taking: Reported on 02/20/2022 ) turmeric root extract 500 mg cap Take 1 capsule by mouth once daily. (Patient not taking: Reported on 02/20/2022 ) No current facility-administered medications for this visit. Review of Systems Constitutional: Negative for fatigue. HENT: Negative for hearing loss. Respiratory: Negative for shortness of breath. Cardiovascular: Negative for chest pain and palpitations. Gastrointestinal: Negative for abdominal pain. Endocrine: Negative for cold intolerance. Genitourinary: Negative for hematuria. Skin: Negative for pallor. Neurological: Negative for syncope. Psychiatric/Behavioral: The patient is not nervous/anxious. Objective BP 140/80 (BP Site: Left Arm, BP Position: Sitting, BP Cuff Size: Large Adult) Pulse 68 Ht 5' 11 (1.803 m) Wt 225 lb (102.1 kg) SpO2 95% BMI 31.38 kg/m Physical Exam Constitutional: Appearance: Normal appearance. HENT: Head: Normocephalic and atraumatic. Eyes: Conjunctiva/sclera: Conjunctivae normal. Cardiovascular: Rate and Rhythm: Normal rate and regular rhythm. Pulmonary: Effort: Pulmonary effort is normal. No respiratory distress. Breath sounds: No stridor. Skin: General: Skin is dry. Coloration: Skin is not pale. Neurological: Mental Status: He is alert and oriented to person, place, and time. Psychiatric: Mood and Affect: Mood normal. Assessment and Plan As above. documented in this encounter [facility] 02-20-2022 Nurse Note No cardiac complaints today. Tala Berry MA documented in this encounter [facility] 10-18-2021 Miscellaneous Notes Patient's request for medication is as follows: Pending Prescriptions Disp Refills CARVEDILOL 12.5 MG TABLET 225 tablet 1 Sig: TAKE 1&1/2 TABLET IN THE MORNING & 1 TABLET IN THE EVENING LEATHA: Yes Last seen 02/20/2021. Follow up scheduled for 02/20/2022. Prescription(s) as above. Please process accordingly. Marian Sauceda LPN documented in this encounter [facility] 02-20-2021 Instructions Slim Loaiza APRN.[employer] CONCRETE BATCHER - 02/20/2021 4:30 PM EDT Atrial Fibrillation What is atrial fibrillation? Atrial fibrillation (also called A-fib) is a fast or irregular heartbeat that starts in the upper chambers of the heart. The abnormal heartbeat affects the ability of the heart to pump blood to the rest of the body. What is the cause? An electrical signal in your heart starts each heartbeat, causing the heart muscle to squeeze (contract). Normally, this signal starts in the upper right chamber of the heart (the right atrium) at a place called the sinus node. The signal then follows normal pathways to the upper left atrium and to the lower chambers of the heart (the ventricles). When you have atrial fibrillation, electrical signals don t start in the normal place in the right atrium and don t travel normally. This can cause the upper chambers of the heart (atria) to beat very fast and not in a normal pattern. Common causes of heart rhythm problems are conditions that damage the heart, like coronary artery disease, heart attack, or heart failure. Problems with the heart valves are another common cause. The heart has 4 valves that open and close with each heartbeat to help blood flow in the right direction through the heart. Other causes of atrial fibrillation include: Health problems, such as a stroke, lung disease, diabetes, overactive thyroid gland, or high blood pressure Abuse of alcohol or drugs, such as cocaine Sometimes no cause can be found. What are the symptoms? Some people don t have any symptoms. When atrial fibrillation does cause symptoms, the most common ones are: Feeling like your heart is beating too fast or too hard or skipping beats or fluttering Feeling tired or weak all the time Symptoms that are more serious include: Chest pain Trouble breathing Lightheadedness or dizziness confusion How is it diagnosed? Your healthcare provider will ask about your symptoms and medical history and examine you. Tests may include: An ECG (also called an EKG), which measures and records your heartbeat. You may have an ECG while you are resting or while you exercise on a treadmill. You may also be asked to wear a small portable ECG monitor for a few days or sometimes a couple weeks. Blood tests An echocardiogram, which uses sound waves (ultrasound) to show the structures of the heart, like the valves How is it treated? The goal of treatment is to help the heart keep a normal rhythm. Your treatment depends on the cause of the atrial fibrillation, how often you have symptoms, and the severity of your symptoms. If you have no symptoms, or your symptoms are fairly mild, you may not need treatment. For some people atrial fibrillation lasts just a short time and the heart goes back to a normal rhythm on its own. If you keep having spells of atrial fibrillation, treatment may help keep you from having so many spells. If a health problem like a leaky heart valve is causing the atrial fibrillation, treating the health problem may also treat the fast or irregular heartbeat. Other possible treatments are: Medicine: Your provider may prescribe medicine to slow or restore a normal heart rate and rhythm. You may also need medicine to prevent blood clots because when the heart beats irregularly, some of the blood can stay in the upper chambers too long. This makes it easier for blood clots to form, increasing your risk of having a stroke or heart attack. Electrical cardioversion: First, you will be given medicine called anesthesia to keep you from feeling pain during the procedure. Then your chest will be given an electrical shock. The electrical shock should make your heart start beating normally again. You may need medicine to keep your heart rhythm normal after this procedure. Ablation: Ablation is a procedure that uses a small tube called a catheter to deliver energy to the inside of the heart. The energy (usually radio waves) scars small areas of heart tissue. The scars block abnormal electrical pathways and help you have a normal heart rhythm. With some types of ablation treatment, you will also need a pacemaker. A pacemaker is an electronic device put under the skin of your chest to help control the heartbeat. How can I take care of myself? Take your medicines as prescribed. Keep your appointments for follow-up blood tests. Make sure your healthcare provider knows about changes in your diet or medical condition. Your provider also needs to know about all prescription and nonprescription medicines, herbs, or supplements that you are taking. Some medicines may interact with your heart medicine or increase your risk for atrial fibrillation. If you want to drink alcohol, ask your provider how much is safe for you to drink. Follow your healthcare provider's instructions. Ask your provider: ?How and when you will hear your test results ?How long it will take to recover ?What activities you should avoid and when you can return to your normal activities ?How to take care of yourself at home ?What symptoms or problems you should watch for and what to do if you have them Make sure you know when you should come back for a checkup. How can I help prevent atrial fibrillation? The best prevention is to have a heart-healthy lifestyle. Keep a healthy weight. Eat a healthy diet that is low in sodium and saturated and trans fat. Stay fit with the right kind of exercise for you. Decrease stress. Don t smoke. Limit your use of alcohol. If you have heart disease or high blood pressure, follow your healthcare provider's instructions for treatment. Developed by [employer]. Published by [employer]. Copyright 2014 [employer] and/or one of its subsidiaries. All rights reserved. documented in this encounter [facility] 02-20-2021 History of Presen t illness Narrative PRIMARY CARE PHYSICIAN: LINDEN VELÁZQUEZ [address] [place] [id number] Patient Care Team: Linden Velázquez as PCP - General (Family Practice) CHIEF COMPLAINT: Patient presents with: CARD Follow Up Annual: paroxysmal a-fib HISTORY OF PRESENT ILLNESS: Mr. Barreto is a 70 year old male who presents today for an Electrophysiology follow-up visit. Patient is known to Dr. Guerrero, last office visit 01/26/2020 (virtual). Prior history from visit 12/22/18, edited as needed: 68-year-old patient of Dr. Reji Patel with history of essential hypertension, obesity and suspected sleep apnea who was diagnosed with paroxysmal atrial fibrillation several years ago when he started experiencing palpitation, exertional dyspnea and fatigue. In the last several months he has been experiencing ongoing symptoms. Presently he is able to walk up a flight of stairs, but more exertion would make him short of breath. He has no known coronary disease, and pharmacologic nuclear stress test in 2016 showed preserved LV systolic function and no perfusion defects. Of note, an echocardiogram at the same time showed normal LVEF and mild dilated left atrium. He has been on oral anticoagulation with apixaban (Eliquis) without interruption for at least several months. He did have to stop anticoagulation for back surgery in 2018. He did have DVT and PE after the surgery. Finally over the last several years he had several episodes of markedly fast heartbeat (140-150 bpm), and was found to be in atrial flutter. Mr. Barreto reports snoring and waking up at night, but does not recall having been tested for sleep apnea. He is working on weight loss as well. ECG today shows atrial fibrillation with controlled ventricular rate of 61 bpm with QRS of 90 ms and QTC of 380. Normal axis. Interval history 07/09/19 visit: The patient underwent PVI, left atrial roof line and CTI ablation in January 2019. He had an early recurrence, was started on amiodarone and cardioverted. His LFI6-YX3-STHc score is 2. Mr. Jefferson Barreto presents for follow-up. He remains in sinus rhythm, feels well, denies chest pain, palpitation, dizziness, or syncope. ECG today shows sinus rhythm at 65 bpm with normal intervals. He remains on oral anticoagulation with Eliquis with no obvious bleeding complications. We will discontinue amiodarone at this time and continue cardiac rhythm monitoring. If he develops an arrhythmia recurrence we will proceed with a repeat ablation procedure. He should remain on Eliquis. We will see him back in 3 months, as long as he continues doing well clinically. Interval history 10/19/19 visit: Mr. Barreto presents for follow-up accompanied by his . He had no symptomatically documented recurrences of atrial fibrillation, continues feeling well, denies chest pain, palpitations, syncope, or dizziness. His amiodarone was discontinued approximately 3 months ago. He remains on oral anticoagulation with Eliquis with no bleeding complications. ECG today shows sinus rhythm at 64 bpm with normal intervals. He did have a repeat chest CT 2 weeks ago (as post ablation chest CT demonstrated two pulmonary nodules), and reportedly there was no significant change. Jefferson continues doing well clinically. He should maintain his current medical regimen, and we will see him back in follow-up in 3 months. Interval history Virtual Visit Slim Josse, CYBER INTELLIGENCE ANALYST 01/26/2020: Today patient reports that he is doing well. 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 He denies any palpitations, dizziness or lightheadedness, syncope or near syncope, chest discomfort. He reports some shortness of breath with exertion like going up and down the stairs a couple times or carrying heavy items, but denies shortness of breath with usual daily activities and denies orthopnea and PND. He is on eliquis and denies any bleeding issues. Interval history Slim Loaiza, CYBER INTELLIGENCE ANALYST 02/20/2021: Patient presents today for annual follow-up regarding paroxysmal atrial fibrillation. is with him today. He follows regularly with his television cabinet finisher Dr. Patel. Patient denies any new medical or surgical history in the past year. He states he was feeling fatigued so his carvedilol was decreased a little by his television cabinet finisher and then 3 months later blood pressure was elevated so PCP increased the dose back to his baseline dose. Patient complains of fatigue. He states he could always tell if he was in atrial fibrillation and had one episode in the past year when he felt his heart beating fast, so he rested and it resolved within a couple hours. He has occasional mild lightheadedness that occurs when he stands up quickly. He denies any chest discomfort. He experiences dyspnea with extreme exertion but not with normal activity. Denies history of sleep apnea. States had Covid in July 2020 but symptoms were rather mild. With review of medications I advised increased risk of bleeding with Eliquis and saw palmetto so he will probably stop the saw palmetto. EKG today shows normal sinus rhythm. Review of Systems Constitutional: Positive for malaise/fatigue. Negative for chills and fever. HENT: Negative for nosebleeds. Respiratory: Positive for shortness of breath. Negative for cough, hemoptysis and sputum production. Cardiovascular: Positive for palpitations. Negative for chest pain, orthopnea, leg swelling and PND. Gastrointestinal: Positive for diarrhea. Negative for blood in stool, constipation, nausea and vomiting. Genitourinary: Negative. Musculoskeletal: Positive for back pain. Negative for falls. Neurological: Positive for dizziness and focal weakness (left arm X couple weeks). Negative for headaches. Psychiatric/Behavioral: The patient has insomnia. PAST MEDICAL HISTORY Diagnosis Date Atrial fibrillation (HCC) Atrial flutter with rapid ventricular response (HCC) Dyspnea on exertion History of DVT (deep vein thrombosis) History of pulmonary embolism Following ankle fusion HTN (hypertension) half-way (current) use of anticoagulants Palpitations Paroxysmal atrial fibrillation (HCC) Paroxysmal atrial flutter (HCC) Spinal stenosis PAST SURGICAL HISTORY Procedure Laterality Date AFIB ABLATION/PULM VEIN ISOLATION 01/18/2019 PVI, RF ablation for AF & typical atrial flutter by Dr. Guerrero at [facility] BACK SURGERY thoracic/ lumvar spine [facility] CARDIOVERSION 01/18/2019 CARDIOVERSION 01/27/2019 CARPAL TUNNEL COLONOSCOP W/ OR W/O [facility] SPEC 10/2002 Colonoscopy/[facility] [place] FOOT SURGERY HX PAST SURGICAL HISTORY OF right ankle surgery PAST SURGICAL HISTORY OF arthrodesis foot surgery S ANKLE FUSION PLATE Social History Tobacco Use Smoking status: Never Smoker Smokeless tobacco: Never Used Vaping Use Vaping Use: Never used Substance Use Topics Alcohol use: No Drug use: Never FAMILY HISTORY Problem Relation Age of Onset Stroke Mother Hypertension Mother Diabetes Brother other (leukemia) Daughter ALLERGIES Allergen Reactions Oxycodone Unknown Sulfamethoxazole Hives Trimethoprim Hives MEDICATIONS: Saw [place] 160 mg capsule Take 320 mg by mouth once daily. sildenafil (VIAGRA) 100 mg tablet Take 100 mg by mouth as needed. carvedilol (COREG) 12.5 mg tablet TAKE 1&1/2 TABLET IN THE MORNING & 1 TABLET IN THE EVENING cholecalciferol (VITAMIN D-3) 5,000 unit tab Take 5,000 Units by mouth once daily. acetaminophen (TYLENOL EXTRA STRENGTH) 500 mg tablet Take 1,000 mg by mouth every 8 hours as needed. turmeric root extract 500 mg cap Take 1 capsule by mouth once daily. ELIQUIS 5 mg tab(s) Take 5 mg by mouth twice daily. therapeutic multivitamin w/ iron 27-0.4 mg tablet Take 1 tablet by mouth once daily. PHYSICAL EXAMINATION: BP 140/80 Pulse 75 Ht 5' 11 (1.80m) Wt 231 lb (104.8kg) SpO2 95% BMI 32.23 kg/(m^2). Physical Exam Vitals and nursing note reviewed. Constitutional: Appearance: He is obese. HENT: Head: Normocephalic. Eyes: General: No scleral icterus. Neck: Vascular: No carotid bruit or JVD. Cardiovascular: Rate and Rhythm: Normal rate and regular rhythm. Pulses: Radial pulses are 3+ on the right side and 3+ on the left side. Heart sounds: S1 normal and S2 normal. No murmur heard. No gallop. Comments: Trace edema lower extremities rt>lt Pulmonary: Effort: Pulmonary effort is normal. Breath sounds: Normal breath sounds. Abdominal: General: Bowel sounds are normal. Palpations: Abdomen is soft. Musculoskeletal: Cervical back: Neck supple. Skin: General: Skin is warm and dry. Neurological: Mental Status: He is alert and oriented to person, place, and time. Gait: Gait is intact. Psychiatric: Mood and Affect: Affect normal. CARDIOVASCULAR MEDICINE TESTING: Electrocardiogram today: Normal sinus rhythm 70 bpm, normal ECG I have personally reviewed the Electrocardiogram. Echocardiogram 05/04/2019: CONCLUSIONS: - Exam indication: Sustained atrial fibrillation - The left ventricle is normal in size. There is mild concentric left ventricular hypertrophy. Left ventricular systolic function is normal. EF = 59 5% (2D biplane) Normal left ventricular diastolic function. - The right ventricle is dilated. Right ventricular systolic function is normal. - No significant valve disease. - The patient has not had a prior CC echocardiographic exam for comparison. ASSESSMENT AND PLAN: ASSESSMENT/PLAN: 1. Paroxysmal atrial fibrillation (HCC) - ICD9: 427.31, ICD10: I48.0 (primary diagnosis) 2. Typical atrial flutter (HCC) - ICD9: 427.32, ICD10: I48.3 Symptomatic; recurrent; status post PVI radiofrequency catheter ablation (left atrial roofline and CTI ablation) for AF and typical atrial flutter 01/18/[address] Guerrero; early recurrence and started on amiodarone then underwent successful DC cardioversion 01/27/2019; amiodarone discontinued 07/09/2019; no clinical evidence of recurrence since then except today states 1 time in the past year felt heart beating fast for couple hours. Preserved LV systolic function per echocardiogram 05/04/2019 with EF 59%. EKG today shows normal sinus rhythm 70 bpm. Continue rate control therapy with carvedilol 12.5 mg 1-1/2 tabs in a.m. and 1 tab in evening. 3. Status post ablation operation for arrhythmia - ICD9: V45.89, ICD10: Z98.890, Z86.79 Underwent PVI, left atrial roofline and CTI ablation for atrial fibrillation and typical atrial flutter by Dr. Guerrero 01/18/2019. 4. At risk for stroke - ICD9: V15.89, ICD10: Z91.89 5. Current use of keno terminal operator anticoagulation - ICD9: V58.61, ICD10: Z79.01 At risk for stroke due to atrial fibrillation and atrial flutter with [id number] score 2 (HTN, age) and is on stroke prevention strategy with long-term anticoagulation with Eliquis 5 mg twice daily. Risk to benefit appears favorable to continue. Patient stable from the EP standpoint and is 2 years post ablation. 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 Patel and follow-up with Dr. Guerrero in 1 year, or sooner if symptoms or clinical evidence of recurrent A. fib/flutter. Slim Loaiza APRN.CNS Return for follow up with Dr. Guerrero in one year, EKG. This note was partially generated using Fusion Dynamic voice recognition system, and there may be some incorrect words, spellings, and punctuation that were not noted in checking the note before saving. documented in this encounter [facility] documented as of this encounter (statuses as of 02/20/2021) [facility]05-14-2019 History of Past illness Narrative* Problem Noted Date Resolved Date Persistent atrial fibrillation 01/19/2019 0 01/19/2019 Atrial flutter, paroxysmal 01/19/201901/19 documented as of this encounter (statuses as of 10/18/2021) [facility]05-14-2019 History of Past illness Narrative* Problem Noted Date Resolved Date Persistent atrial fibrillation 01/19/2019 0 01/19/2019 Atrial flutter, paroxysmal 01/19/201901/19 documented as of this encounter (statuses as of 02/20/2022) [facility] [place] [facility]* Diagnosis Paroxysmal atrial fibrillation (HCC)- Primary Atrial fibrillation Typical atrial flutter (HCC) Atrial flutter Status post ablation operation for arrhythmia Other postprocedural status At risk for stroke Other specified personal history presenting hazards to health Current use of keno terminal operator anticoagulation Long-term (current) use of anticoagulants documented in this encounter [facility] note* Diagnosis Paroxysmal atrial fibrillation (HCC)- Primary Atrial fibrillation Atrial flutter with rapid ventricular response (HCC) Atrial flutter documented in this encounter [facility] [place] [facility]* Diagnosis Medicare annual wellness visit, subsequent- Primary Labile hypertension Type 2 diabetes mellitus without complication, without long-term current use of insulin ([facility]/HCC) (HCC) Hyperlipidemia, unspecified hyperlipidemia type Dyspnea on exertion Other dyspnea and respiratory abnormality documented in this encounter [facility] HealthInstructions* Attachments The following attachments cannot be sent through Care Everywhere. * Weight Loss Tips (Arabic) [facility] Family History No Family History Records FoundNo Family History Records FoundNo Family History Records Found Advance Directives No Advanced Directives Records FoundDocuments on File Type Date Recorded Patient Wood Bucker Expl anation Advance Directive(s) 01/26/2019 2:15 PM Advance Directive(s) 01/18/2019 6:18 AM History of Past Illness Problem Noted Date Resolved Date Persistent atrial fibrillation 01/19/2019 0 01/19/2019 Atrial flutter, paroxysmal 01/19/201901/19 Additional Source Comments (unrecognized sect ion and content) No Status Records FoundNo Status Records FoundNo Status Records Found INFORMATION SOURCE (unrecogn ized section and content) DATE CREATED AUTHOR AUTHOR'S ORGANIZ ATION 02/21/2022 [facility] DATE CREATED AUTHOR AUTHOR'S ORGANIZ ATION 07/03/2023 [facility] Source Comments (unrecognize d section and content) In the event this informatio n is protected by the Federal Confidentiality of Alcohol and Drug Abuse Patient Records regulations: The Federal rules restrict any use of the information to criminally investigate or prosecute any alcohol or drug abuse patient.[facility] event this information is protected by the Federal Confidentiality of Alcohol and Drug Abuse Patient Records regulations: The Federal rules restrict any use of the information to criminally investigate or prosecute any alcohol or drug abuse patient.[facility] the event this information is protected by the Federal Confidentiality of Alcohol and Drug Abuse Patient Records regulations: The Federal rules restrict any use of the information to criminally investigate or prosecute any alcohol or drug abuse patient.[facility] the event this information is protected by the Federal Confidentiality of Alcohol and Drug Abuse Patient Records regulations: The Federal rules restrict any use of the information to criminally investigate or prosecute any alcohol or drug abuse patient.[facility] Reason for Visit (unrecogniz ed section and content) Reason Comments CARD Follow Up Annual paroxysmal a-fib Reason Comments CARD Follow Up Annual atrial flutter wit h RVR Reason Comments Medicare Annual Wellness Visit Initial Shortness of Breath Tying his shoes Reason Onset Date Comments Med Refill 01/22/2023 Telephone Encounter - Adelita Wellington (Charge Poster) - 09/15/2020 7:50 AM EST Miscellaneous Notes (unrecog nized section and content) Patient's request for medication is as follows: Pending Prescriptions Disp Refills CARVEDILOL 12.5 MG TABLET 225 tablet 3 Sig: TAKE 1&1/2 TABLET IN THE MORNING & 1 TABLET IN THE EVENING LEATHA: Yes Last office visit 10/19/19, recall 01/25/2021 Prescription(s) as above. Please process accordingly. Adelita (Kerry) Amish documented in this encounter Care Teams (unrecognized sec tion and content) Pneumatic Tester Mechanic Relationship Specialty Start Date End Date Linden Velázquez [address] [place] [address] PCP - General Family Practice 12/22/18 Pneumatic Tester Mechanic Relationship Specialty Start Date End Date Linden Velázquez, DO [address] [place] [address] PCP - General 02/06/19 Pneumatic Tester Mechanic Relationship Specialty Start Date End Date Linden Velázquez, [address] [place] [address] PCP - General 02/06/19 FOR RECORDS PERTAINING TO PATIENTS WHO ARE OR HAVE BEEN ENROLLED IN A CHEMICAL DEPENDENCY/SUBSTANCEABUSE PROGRAM, SOME INFORMATION MAY BE OMITTED. This clinical summary was aggregated from multiple sources. Caution should be exercised in using it in the provision of clinical care. This summary normalizes information from multiple sources, and as a consequence, information in this document may materially change the coding, format and clinical context of patient data. In addition, data may be omitted in some cases. CLINICAL DECISIONS SHOULD BE BASED ON THE PRIMARY CLINICAL RECORDS. [facility]. provides no warranty or guarantee of the accuracy or completeness of information in this document.
[2023-10-24 14:39] LABS: Red Blood Cells-Urine 0 SEEN /hpf (0-5); Squamous Epithelial Cells - UA 0 SEEN /hpf (0-5)
[2023-10-24 14:42] VITALS: RESP 18
[2023-10-24 14:55] LABS: Color, Urine Yellow (Yellow); Glucose, Dipstick Normal (Normal); Ketone-Dipstick 5 mg/dl (Negative); Leukocyte Esterase-Dipstick 25 /ul (Negative); Nitrite-Dipstick Negative (Negative); Occult Blood-Urine Negative /ul (Negative); Protein-Dipstick 30 mg/dl (Negative); Specific Gravity, Urine 1.025 (1.002-1.030); Urine Clarity Clear (Clear); Urine Urobilinogen 1 mg/dl (Normal)
[2023-10-24 15:08] LABS: Urine Bilirubin Dipstick 1 mg/dL (Negative)
[2023-10-24 15:21] LABS: Bacteria 1+ /hpf (None Seen); Calcium Oxalate Crystals Ur 3+ /hpf (<or=2+); Mucous, Urine 2+ /hpf (<or=2+); White Blood Cells 0-5 SEEN /hpf (0-5)
[2023-10-24] MEDS: Morphine 4 MG/ML Syringe IV (15:26)
--- NOTE | 2023-10-24 15:26 | PCM.HP.STD ---
HPI - General General Date of Admission: 10/24/23 Date of Service: 10/24/23 Chief Complaint: Abdominal pain/nausea/vomiting HPI Narrative JEFFERSON BARRETO, is a 73 M who presented to the emergency department at [facility] on 10/24/2023 with abdominal pain/nausea/vomiting. Patient reported that symptoms started about 3 days ago when he developed periumbilical pain, acute nausea and vomiting whenever he tried to eat and he had 1 episode of diarrhea. He reported since that time has not had any bowel movements and he continues to have periumbilical pain and is not able to keep down even fluids. He denied any fever or chills, he had no respiratory symptoms. He had no melena or hematochezia, no hematemesis. He has no history of abdominal surgeries. He is chronically anticoagulated with rivaroxaban for atrial fibrillation and history of PE/DVT. States his last known DVT was in 2014 however he has a family history of thromboembolic disease so he is maintained on rivaroxaban for that and his history of A-fib. Vital signs on presentation showed temperature of 97.8, heart rate is 87, blood pressure was 170/96, respiratory 16 oxygen saturations were 97% room air. His CBC is completely unremarkable. His chemistry panel shows a mildly elevated BUN at 22 and a serum creatinine of 1.01. His glucose is 174. It does not appear that he has a history of diabetes. His lipase was 13. His UA shows dehydration with a specific gravity of 1.025 but no signs of infection. CT of the abdomen pelvis was performed and shows a small umbilical hernia containing fat, findings that are consistent with a partial versus early complete small bowel obstruction with a transitional point in the mid ileum. There are gas and fecal material seen in the colon and fluid distention in the stomach. He has diffuse fatty infiltration of the liver. Case was discussed with general surgery by the emergency department and the current plan is for NG placement and conservative management. He will be placed as a full admission on the medical floor for treatment of his small bowel obstruction. 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 current use of anticoagulant Lung nodule Paroxysmal atrial fibrillation Spinal stenosis Stenosis of right carotid artery Home Medications multivitamin 1 ea PO DAILY supplement 07/13/17 [History Last Taken 10/23/23] acetaminophen 500 mg capsule 500 mg PO BID PRN pain 02/12/23 [History Last Taken 10/24/23] carvedilol 12.5 mg tablet 12.5 mg PO BID #60 tabs 02/21/23 [Rx Last Taken 10/24/23] rivaroxaban 20 mg tablet (Xarelto) See Rx Instructions .Route .COMPLEX #30 tabs 06/05/23 [Rx Last Taken 10/23/23] lisinopril 10 mg tablet 10 mg PO DAILY 10/24/23 [History Last Taken 10/22/23] psyllium husk 3.4 gram/5.4 gram oral powder (Metamucil) 2 tsp PO DAILY 10/24/23 [History Last Taken 10/23/23] Allergy/AdvReac Type Severity Reaction Status Date / Time sulfamethoxazole Allergy Hives Verified 10/24/23 12:44 [From Bactrim] trimethoprim [From Bactrim] Allergy Hives Verified 10/24/23 12:44 oxycodone AdvReac Other Verified 10/24/23 12:44 Family History Mother CVA (cerebral vascular accident) Hypertension Brother Diabetes Surgical History History of ankle fusion History of cardiac radiofrequency ablation (~01/18/19) History of carpal tunnel surgery History of foot surgery Social History (Updated 10/24/23 @ 15:[address] Pratima Loaiza DO) household members: spouse housing: house Smoking Status: Never smoker alcohol intake: never substance use type: does not use ROS Constitutional Constitutional: Reports anorexia; Denies change in weight, chills, fatigue, fever(s), malaise, night sweats, weakness or other Eyes Eyes: Denies blurry vision, change in eye color, change in vision, discharge from eye(s), double vision, erythema, eye pain, loss of vision or other ENT HEENT: Denies abnormal hearing, dysphagia, ear pain, epistaxis, headache(s), hearing loss, nasal congestion, nasal discharge, post nasal drip, sinus pressure, sore throat or other Cardiovascular Cardiovascular: Denies chest pain, claudication, dyspnea on exertion, edema, lightheadedness, orthopnea, palpitations, paroxysmal nocturnal dyspnea, rapid heart rate, syncope or other Respiratory/Chest Respiratory/Chest: Denies cough, dyspnea, excessive phlegm production, hemoptysis, productive cough, shortness of breath at rest, shortness of breath with exertion, wheezing or other Gastrointestinal Gastrointestinal: Reports abdominal pain, constipation, diarrhea, nausea and vomiting; Denies coffee ground emesis, dyspepsia, hematemesis, hematochezia, loose stools, melena or other Genitourinary Genitourinary: Denies burning urination, difficulty urinating, dysuria, hematuria, nocturia, urinary frequency, urinary hesitancy, urinary incontinence, urinary urgency or other Musculoskeletal Musculoskeletal: Denies arthralgias, back pain, joint pain, joint stiffness, joint swelling, myalgias, neck pain or other Neurologic Neurologic: Denies abnormal gait, abnormal speech, confusion, disequilibrium, dizziness, focal weakness, headache(s), numbness, paresthesias, seizure-like activity, seizures, syncope, tingling, tremor(s) or other Psychiatric Psychiatric: Denies anxiety, depression, homicidal ideation, suicidal ideation or other Endocrine Endocrinology: Denies change in body appearance, cold intolerance, excessive sweating, heat intolerance, polydipsia, polyuria or other Hematologic/Lymphatic Hematologic/Lymphatic: Denies anemia, easy bleeding, easy bruising, lymphadenopathy or other Allergic/Immunologic Allergic/Immunologic: Denies rhinitis, hives, eczemia, asthma or other Vital Signs Vital Signs Vital Signs: 10/24/23 12:42 Temperature 97.8 F Temperature Source Temporal Pulse Rate 87 Respiratory Rate 16 Blood Pressure 170/96 H Blood Pressure Mean 120 Pulse Ox 97 Oxygen Delivery Method Room Air Weight Weight: 101.775 kg Body Mass Index (BMI) 31.3 Physical Exam Const alert, oriented x3, no apparent distress, healthy appearing and well nourished; Negative for average body habitus Constitutional Narrative: Very pleasant, older, white male, sitting up in bed, appears comfortable and nontoxic, at bedside, nursing at bedside getting ready to place NG tube, complains of minimal discomfort at this time since he was treated with pain medication General Appearance: cooperative HEENT normocephalic, head/scalp atraumatic and moist oral mucous membranes; Negative for hearing grossly normal bilaterally HEENT Narrative: Mild hearing loss, Mallampati is 2, no thrush, dentition is fair for age Eyes PERRL, EOMs intact bilaterally and conjunctivae normal Neck no lymphadenopathy and supple Neck Narrative: Trachea midline, no thyroid enlargement Resp normal respiratory effort, no retractions, no use of accessory muscles and clear to auscultation bilaterally Auscultation: Negative for rales, rhonchi or wheezes Cardio regular rate, regular rhythm, S1 normal heart sound, S2 normal heart sound, no murmurs, no rub, no gallops and no clicks GI GI Narrative: Abdomen is distended, bowel sounds are hypoactive, mild diffuse tenderness but soft Extremity no clubbing, cyanosis or edema Extremity Narrative: Pedal pulses are 2+ bilateral lower extremities Neuro oriented x3, moves all extremities and no focal motor deficits Speech: speech normal Psych affect normal Psych Narrative: Very pleasant, eye contact is good, patient is calm and interacts appropriately Results Lab / Micro Data Attestation: I reviewed the patient's lab results. 10/24/23 13:04 10/24/23 13:04 Labs: Laboratory Results - last 24 hr 10/24/23 13:04: WBC 9.0, RBC 4.97, Hgb 15.8, Hct 48.2, MCV 97.0 H, MCH 31.8, MCHC 32.8, RDW Std Deviation 46.8 H, RDW Coeff of Brock 13.1, Plt Count 237, MPV 10.4, Immature Gran % (Auto) 0.300, Neut % (Auto) 67.4, Lymph % (Auto) 20.8, Clarke % (Auto) 10.7 H, Eos % (Auto) 0.4, Baso % (Auto) 0.4, Absolute Neuts (auto) 6.0, Absolute Lymphs (auto) 1.86, Nucleated RBC % 0, Sodium 137, Potassium 4.4, Chloride 105, Carbon Dioxide 26.0, Anion Gap 6, BUN 22 H, Creatinine 1.01, Estim Creat Clear Calc 80.32, Est GFR (MDRD) Af Amer 93, Est GFR (MDRD) Non-Af 77, BUN/Creatinine Ratio 21.8 H, Glucose 174 H, Calcium 9.0, Total Bilirubin 1.20 H, AST 25, ALT 23, Alkaline Phosphatase 49, Total Protein 7.5, Albumin 3.3, Globulin 4.2, Albumin/Globulin Ratio 0.8 L, Lipase 13 10/24/23 14:30: Urine Color Yellow, Urine Clarity Clear, Urine pH 5.0, Ur Specific [place] 1.025, Urine Protein 30 H, Urine Glucose (UA) Normal, Urine Ketones 5 H, Urine Occult Blood Negative, Urine Nitrite Negative, Urine Bilirubin 1 H, Urine Urobilinogen 1 H, Ur Leukocyte Esterase 25 H, Urine RBC 0 SEEN, Urine WBC 0-5 SEEN, Ur Squamous Epith Cells 0 SEEN, Calcium Oxalate Crystal 3+, Urine Bacteria 1+, Urine Mucus 2+ Imaging Radiology Impression Abdomen/Pelvis CT 10/24/23 12:56 IMPRESSION: Findings in keeping with the partial versus early complete small bowel obstruction with the transition point in the mid ileal level. Gas and fecal material are seen in the colon. There is fluid distention of the stomach. Fatty infiltration of liver. Nonobstructive Electronically Signed: Charlie De La Rosa MD at 14:47 EST , Assessment & Plan Assessment/Plan (1) Complete small bowel obstruction: (2) Abdominal pain: (3) Nausea and vomiting: (4) Hyperglycemia: PLAN: Plan Small bowel obstruction -Patient with no surgical history and no abdominal radiation -Most recent colonoscopy was 10 years he states he is due for his last colonoscopy which she is aware -N.p.o. okay for p.o. meds and ice chips -NG tube to low intermittent suction -IV fluids with LR at 100 cc/h -Antiemetics as needed -As needed pain medication -Hold rivaroxaban--> last dose was on 10/22/2023 -General surgery consultation--> discussed with Dr. Andrews Hyperglycemia -No documented history of diabetes -Blood sugar on admission was 175 -Check hemoglobin A1c and if greater than 7 will start sliding scale and Accu-Cheks every 6 History of DVT/PE -Patient has strong familial history and therefore is maintained on rivaroxaban -Sounds like his last clot was in 2010 and was provoked with foot surgery -Rivaroxaban on hold now due to potential surgery History of A-fib with RVR -Hold home rivaroxaban -Currently normal sinus rhythm -Continue home carvedilol -History of radiofrequency ablation in 2019 Essential hypertension -Continue home carvedilol -Continue home lisinopril History of right carotid artery stenosis -Continue outpatient follow-up Obesity -BMI 31.3 -Complicates treatment, prognosis, outcomes -Recommend weight loss DVT prophylaxis -Lovenox subcu 40 mg daily CODE STATUS -Full code as discussed prior to admission Charges/Coding Visit Charges Inpatient E&M: 44151 Init Hosp L2
[2023-10-24] MEDS: Oxymetazoline 0.05% 1 SPRAY SPRAY.BTL 2 SPRAY NASAL (15:27)
--- NOTE | 2023-10-24 15:50 | RAD_ITS ---
EXAM: XR ABDOMEN, 1 VIEW CLINICAL INDICATION: NG Insertion TECHNIQUE: Frontal supine view of the abdomen/pelvis. COMPARISON: No relevant prior studies available. FINDINGS: LOWER THORAX: No acute pathology. GASTROINTESTINAL TRACT: Unremarkable. Non-obstructive. No bowel or stomach distention. ORGANS: Unremarkable as visualized. No organomegaly. No abnormal calcifications. BONES/JOINTS: No acute pathology. SOFT TISSUES: No acute pathology. TUBES, LINES AND DEVICES: Nasogastric tube is in place with the distal tip in the proximal stomach. There are dilated gas-filled loops of small bowel present. RAD/Abdomen Single View (Portable) IMPRESSION: 1. Nasogastric tube in place with the distal tip in the proximal stomach. 2. Dilated gas-filled loops of small bowel compatible with mechanical obstruction. Electronically Signed: Chato Alvarado MD at 16:19 EST ,
[2023-10-24 15:54] VITALS: BP 149/88; PULSE 70; RESP 18; TEMP 36.5; O2SAT 94
[2023-10-24 16:13] LABS: Hemoglobin A1c 6.4 % (3.8-5.6)
[2023-10-24 16:25] VITALS: BP 148/94; PULSE 78; RESP 18; TEMP 36.1; O2SAT 97
--- NOTE | 2023-10-24 16:30 | EX.PCM.CON.S ---
Assessment & Plan Assessment/Plan (1) Partial small bowel obstruction: (2) Nausea and vomiting: (3) Paroxysmal atrial fibrillation: (4) [facility] current use of anticoagulant: PLAN: Plan Plan for conservative management- NG/IVF, check KUB in AM, will plan for gastrografin SBFT in AM continue pain control hold xarelto- last dose yesterday AM Appreciate medicines assistance. HPI Consult Data Date of Consult: 10/24/23 HPI Narrative Reason for Consultation: sbo HPI Narrative: JEFFERSON BARRETO, is a 73 M who presents to the ER due to upper abdominal pain and N/V. Pt has had pain/N/v since night. pt had one episode of diarrhea then had abd pain/n/v. Pt denies any abd surgeries, had colonoscopy 10 years ago - neg per pt. CT a/p showed SBO transition distal SB. Pt had NG placed in ER got about 1 Liter out. Pt denies hx of sbo. [facility] Medical History (Updated 10/24/23 @ 16:43 by Karla Bowden) Atrial fibrillation Atrial fibrillation with RVR Dyspnea on exertion Essential hypertension History of DVT (deep vein thrombosis) History of pulmonary embolism penitentiary current use of anticoagulant Lung nodule Paroxysmal atrial fibrillation Pulmonary embolism Rheumatoid arthritis Spinal stenosis Stenosis of right carotid artery Home Medications multivitamin 1 ea PO DAILY supplement 07/13/17 [History Last Taken 10/23/23] acetaminophen 500 mg capsule 500 mg PO BID PRN pain 02/12/23 [History Last Taken 10/24/23] carvedilol 12.5 mg tablet 12.5 mg PO BID #60 tabs 02/21/23 [Rx Last Taken 10/24/23] rivaroxaban 20 mg tablet (Xarelto) See Rx Instructions .Route .COMPLEX #30 tabs 06/05/23 [Rx Last Taken 10/23/23] lisinopril 10 mg tablet 10 mg PO DAILY 10/24/23 [History Last Taken 10/22/23] psyllium husk 3.4 gram/5.4 gram oral powder (Metamucil) 2 tsp PO DAILY 10/24/23 [History Last Taken 10/23/23] Allergy/AdvReac Type Severity Reaction Status Date / Time sulfamethoxazole Allergy Hives Verified 10/24/23 12:44 [From Bactrim] trimethoprim [From Bactrim] Allergy Hives Verified 10/24/23 12:44 oxycodone AdvReac Other Verified 10/24/23 12:44 Family History Mother CVA (cerebral vascular accident) Hypertension Brother Diabetes Surgical History History of ankle fusion History of cardiac radiofrequency ablation (~01/18/19) History of carpal tunnel surgery History of foot surgery Social History (Updated 10/24/23 @ 15:[address] Pratima Loaiza DO) household members: spouse housing: house Smoking Status: Never smoker alcohol intake: never substance use type: does not use ROS Constitutional Constitutional: Reports anorexia; Denies fever(s) Eyes Eyes: Denies blurry vision ENT HEENT: Denies dysphagia Cardiovascular Cardiovascular: Denies palpitations Respiratory/Chest Respiratory/Chest: Denies cough Gastrointestinal Gastrointestinal: Reports abdominal pain, bloating, diarrhea, nausea and vomiting Genitourinary Genitourinary: Denies dysuria Musculoskeletal Musculoskeletal: Denies joint swelling Integumentary Integumentary: Denies jaundice Neurologic Neurologic: Denies focal weakness Psychiatric Psychiatric: Denies depression Hematologic/Lymphatic Hematologic/Lymphatic: Denies easy bleeding Physical Exam Narrative NG in place. Const alert, oriented x3 and no apparent distress HEENT normocephalic and head/scalp atraumatic Resp normal respiratory effort Cardio regular rate GI soft to palpation; Negative for non-distended Palpation: tender epigastric, LUQ and RUQ; Negative for guarding Extremity no clubbing, cyanosis or edema Neuro CN's II-XII intact bilaterally Psych mental status grossly normal Lab / Micro Data 10/24/23 13:04 10/24/23 13:04 Labs: Laboratory Results - last 24 hr 10/24/23 13:04: WBC 9.0, RBC 4.97, Hgb 15.8, Hct 48.2, MCV 97.0 H, MCH 31.8, MCHC 32.8, RDW Std Deviation 46.8 H, RDW Coeff of Brock 13.1, Plt Count 237, MPV 10.4, Immature Gran % (Auto) 0.300, Neut % (Auto) 67.4, Lymph % (Auto) 20.8, [place] % (Auto) 10.7 H, Eos % (Auto) 0.4, Baso % (Auto) 0.4, Absolute Neuts (auto) 6.0, Absolute Lymphs (auto) 1.86, Nucleated RBC % 0, Sodium 137, Potassium 4.4, Chloride 105, Carbon Dioxide 26.0, Anion Gap 6, BUN 22 H, Creatinine 1.01, Estim Creat Clear Calc 80.32, Est GFR (MDRD) Af Amer 93, Est GFR (MDRD) Non-Af 77, BUN/Creatinine Ratio 21.8 H, Glucose 174 H, Hemoglobin A1c 6.4 H, Calcium 9.0, Total Bilirubin 1.20 H, AST 25, ALT 23, Alkaline Phosphatase 49, Total Protein 7.5, Albumin 3.3, Globulin 4.2, Albumin/Globulin Ratio 0.8 L, Lipase 13 10/24/23 14:30: Urine Color Yellow, Urine Clarity Clear, Urine pH 5.0, Ur Specific [place] 1.025, Urine Protein 30 H, Urine Glucose (UA) Normal, Urine Ketones 5 H, Urine Occult Blood Negative, Urine Nitrite Negative, Urine Bilirubin 1 H, Urine Urobilinogen 1 H, Ur Leukocyte Esterase 25 H, Urine RBC 0 SEEN, Urine WBC 0-5 SEEN, Ur Squamous Epith Cells 0 SEEN, Calcium Oxalate Crystal 3+, Urine Bacteria 1+, Urine Mucus 2+ Imaging Radiology Impression Abdomen/Pelvis CT 10/24/23 12:56 IMPRESSION: Findings in keeping with the partial versus early complete small bowel obstruction with the transition point in the mid ileal level. Gas and fecal material are seen in the colon. There is fluid distention of the stomach. Fatty infiltration of liver. Nonobstructive Electronically Signed: Charlie De La Rosa MD at 14:47 EST , KUB X-Ray 10/24/23 15:50 IMPRESSION: 1. Nasogastric tube in place with the distal tip in the proximal stomach. 2. Dilated gas-filled loops of small bowel compatible with mechanical obstruction. Electronically Signed: Chato Alvarado MD at 16:19 EST , Charges/Coding Visit Charges Inpatient E&M: 34426 Init Hosp L3
[2023-10-24 16:34] VITALS: BMI 31.0
[2023-10-24] MEDS: BENZOCAINE/MENTHOL 1 LOZENGE MUCOUS MEM ×2 (17:14→19:10)
[2023-10-24] MEDS: Lactated Ringers 1,000 ML 100 ML IV (17:16)
[2023-10-24] MEDS: Pantoprazole Sodium 40 MG in 0.9% Normal Saline (100mL MB+) 100 ML 330 MG IV (17:27)
--- OUTSIDE RECORDS SUMMARY | 2023-10-24 17:31 | XMS RPT_ITS | CCD ---
Author Name Unknown Address [address] [place] [address] Organization [facility] Care Team Providers Care Electronic Installer Name Role Phone Linden Velázquez Primary Care Provider JANUSZ BARAHONA Attending Unavailable LINDEN VELÁZQUEZ Primary Care Unavailable LINDEN VELÁZQUEZ Attending Unavailable LINDEN VELÁZQUEZ Primary Care Unavailable Allergies Allergy Classification Reported Allergen(s) Allergy Type Date of Onset Reaction(s) Facility Dihydrofolate Reductase Inhibitors (antibiotic) (1 source) Trimethoprim Drug Allergy 11-24-19 19 [facility] Opioid Agonists (1 source) oxyCODONE Drug Allergy 11-24-19 19 Unknown [facility] Sulfonamides (antibiotic) (1 source) Sulfamethoxazole Drug Allergy 11-24-19 19 [facility] (5 sources) oxyCODONE Drug Allergy 10-28-19 19 Unknown [facility] (3 sources) Sulfamethoxazole Drug Allergy 11-24-19 19 [facility] (5 sources) Trimethoprim Drug Allergy 10-28-19 19 [facility] (2 sources) Sulfamethoxazole Allergy to substance 11-14-19 17 [facility] (2 sources) Sulfamethoxazole / Trimethoprim Drug Allergy 12-19-19 13 Rash, Fever, [facility] Medications Current Medications Medication Drug Class(es) Dates [...] 01-27-2019 01-27-2019 Chronic Other aftercare (2 sources) longterm (current) use of anticoagulants; 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] Onset: 07-02-2023 Episodic [...] sources) Long-term current use of anticoagulant; Translations: [longterm (current) use of anticoagulants] Onset: 01-25-2020 01-25-2020 Episodic Other aftercare (2 sources) Patient encounter status; Translations: [longterm (current) use of non-steroidal anti-inflammatories (NSAID)] Onset: [...] Diastolic blood pressure 78 mm[Hg] Janusz Paulie KITCHEN AND COUNTER WORKER - PROCESS ENGINEERING INTERN Work Phone: [facility] [employer] 12-16-2022 09:16-0400 Systolic blood pressure 144 mm[Hg] Janusz Humbertoie KITCHEN AND COUNTER WORKER - PROCESS ENGINEERING INTERN Work Phone: [facility] 12-16-2022 07:35-0400 Body height 180.3 cm Janusz Humbertoie KITCHEN AND COUNTER WORKER - PROCESS ENGINEERING INTERN Work Phone: [facility] [employer] 12-16-2022 07:35-0400 Body mass index (BMI) [Ratio] 31.58 kg/m2 Janusz Tokie KITCHEN AND COUNTER WORKER - PROCESS ENGINEERING INTERN Work Phone: [facility] 12-16-2022 07:35-0400 Body temperature 97.81 [degF] Janusz Paulie KITCHEN AND COUNTER WORKER - PROCESS ENGINEERING INTERN Work Phone: [facility] 12-16-2022 07:35-0400 Body weight 102.69 kg Janusz Humbertoie KITCHEN AND COUNTER WORKER - PROCESS ENGINEERING INTERN Work Phone: [facility] [employer] 12-16-2022 07:35-0400 Heart rate 68 /min Janusz Humbertoie KITCHEN AND COUNTER WORKER - PROCESS ENGINEERING INTERN Work Phone: [facility] 12-16-2022 07:35-0400 SaO2% (BldA) [Mass fraction] 96 % Janusz Paulie KITCHEN AND COUNTER WORKER - PROCESS ENGINEERING INTERN Work Phone: [facility] 02-20-2022 15:56-0400 Body height 180.3 cm Nikolas Guerrero MD Work Phone: [facility] 02-20-2022 15:56-0400 Body weight 102.06 kg Nikolas Guerrero MD Work Phone: [facility] 02-20-2022 15:56-0400 Diastolic blood pressure 80 mm[Hg] Nikolas Guerrero MD Work Phone: [facility] 02-20-2022 15:56-0400 Heart rate 68 /min Nikolas Guerrero MD Work Phone: [facility] 02-20-2022 15:56-0400 SaO2% (BldA) [Mass fraction] 95 % Nikolas Guerrero MD Work Phone: [facility] 02-20-2022 15:56-0400 Systolic blood pressure 140 mm[Hg] Nikolas Guerrero MD Work Phone: [facility] 02-20-2021 15:53-0400 Body height 180.3 cm Slim Loaiza APRN.SUSTAINABLE SYSTEMS ANALYST Work Phone: [facility] 02-20-2021 15:53-0400 Body weight 104.78 kg Slim Loaiza APRN.SUSTAINABLE SYSTEMS ANALYST Work Phone: [facility] 02-20-2021 15:53-0400 Diastolic blood pressure 80 mm[Hg] Slim Loaiza APRN.SUSTAINABLE SYSTEMS ANALYST Work Phone: [facility] 02-20-2021 15:53-0400 Heart rate 75 /min Slim Loaiza APRN.SUSTAINABLE SYSTEMS ANALYST Work Phone: [facility] 02-20-2021 15:53-0400 SaO2% (BldA) [Mass fraction] 95 % Slim Loaiza APRN.SUSTAINABLE SYSTEMS ANALYST Work Phone: [facility] 02-20-2021 15:53-0400 Systolic blood pressure 140 mm[Hg] Slim Loaiza APRN.SUSTAINABLE SYSTEMS ANALYST Work Phone: [facility] Encounters Encounter Date Encounter Type Care Provider Facility Start: 07-02-2023 End: 07-02-2023 ambulatory LINDEN VELÁZQUEZ [facility] Start: 01-22-2023 Refill Linden gibson DO Work Phone: [facility] Start: 12-16-2022 End: 12-16-2022 ambulatory JANUSZ BARAHONA [facility] Start: 12-16-2022 End: 12-16-2022 Patient encounter procedure Janusz M Tokie KITCHEN AND COUNTER WORKER - PROCESS ENGINEERING INTERN Work Phone: [facility] Procedures Date Procedure Procedure Detail Performing Clinician Start: 12-16-2022 Adult depression screening assessment Linden Velázquez DO Work Phone: Start: 12-16-2022 Lipid 1996 panel - Serum or Plasma Linden Velázquez DO Work Phone: Start: 02-20-2022 Ecg routine ecg w/le ast 12 lds w/i&r Nikolas Guerrero MD Work Phone: Start: 12-12-2021 Lipid 1996 panel - Serum or Plasma Janusz Barahona KITCHEN AND COUNTER WORKER - PROCESS ENGINEERING INTERN Work Phone: Start: 02-20-2021 Ecg routine ecg w/le ast 12 lds w/i&r Slim Loaiza APRNWilnerSUSTAINABLE SYSTEMS ANALYST Work Phone: Plan of Treatment Date Care Activity Detail Author Start: 12-12-2024 DIABETES SCREEN DIABETES SCREEN [facility] Start: 01-16-2024 Medicare Annual Well ness (AWV) Medicare Annual Wellness (AWV) [facility] Start: 12-25-2023 Glaucoma screening Diabetes: R etinopathy Screening [facility] Start: 12-17-2023 Depression Screening Depression Scre ening [facility] Start: 12-17-2023 Lipid panel Lipid Panel [facility] Start: 03-17-2023 Hemoglobin A1c measurement Diabetes: Hemoglobin A1C [facility] Start: 12-16-2022 End: 12-17-2023 CBC panel - Blood by Automated count CBC Lab Routine Dyspnea on exertion Expected: 12/16/2022 (Approximate), Expires: 12/17/2023 [facility] Immunizations Immunization Date Immunization Notes Care Provider Fa fab 05-23-2021 Influenza, Seasonal, Quadrivalent, Adjuvanted Janusz Barahona KITCHEN AND COUNTER WORKER - PROCESS ENGINEERING INTERN Work Phone: [facility] 05-23-2021 zoster vaccine recombinant S gonzález Esequiel KITCHEN AND COUNTER WORKER - PROCESS ENGINEERING INTERN Work Phone: [facility] 03-19-2021 zoster vaccine recombinant S gonzález Tokmathew KITCHEN AND COUNTER WORKER - PROCESS ENGINEERING INTERN Work Phone: [facility] 05-24-2020 influenza, injectabl e, quadrivalent, preservative free Janusz Tokie KITCHEN AND COUNTER WORKER - PROCESS ENGINEERING INTERN Work Phone: [facility] 07-26-2019 pneumococcal polysac charide vaccine, 23 valent Janusz Tokie KITCHEN AND COUNTER WORKER - PROCESS ENGINEERING INTERN Work Phone: [facility] 06-01-2019 influenza, injectabl e, quadrivalent, preservative free Janusz Tokie KITCHEN AND COUNTER WORKER - PROCESS ENGINEERING INTERN Work Phone: [facility] 06-03-2018 Seasonal trivalent influenza vaccine, adjuvanted, preservative free Janusz Tokie KITCHEN AND COUNTER WORKER - PROCESS ENGINEERING INTERN Work Phone: [facility] 04-09-2018 pneumococcal conjuga te vaccine, 13 valent Janusz Tokie KITCHEN AND COUNTER WORKER - PROCESS ENGINEERING INTERN Work Phone: [facility] 07-02-2017 influenza, injectabl e, quadrivalent, preservative free Janusz Tokie KITCHEN AND COUNTER WORKER - PROCESS ENGINEERING INTERN Work Phone: [facility] 07-23-2016 influenza, seasonal, injectable Janusz Tokie KITCHEN AND COUNTER WORKER - PROCESS ENGINEERING INTERN Work Phone: [facility] [employer] 06-04-2016 influenza, high dose seasonal, preservative-free Janusz Tokie KITCHEN AND COUNTER WORKER - PROCESS ENGINEERING INTERN Work Phone: [facility] [employer] Payers Date Payer Category Payer Unknown [employer] [facility] MEDICARE SUPPLEMENT [id number] 2022-Present [address] [place] [address] Supplement [id number] 2022 Unknown [id number] 2016 Medicare [id number] 2016 Medicare MEDICARE MEDICAR E PART A AND B [id number] 2016-Present [address] [place] [address] Medicare [id number] 2016 Medicare [id number] 2016 Private Health Insurance [employer] MEDICARE SUPPLEMENT [id number] 2016-Present Indemnity [id number] Social History Date Type Detail Facility Start: 04-19-2014 End: 01-26-2020 Tobacco smoking status NHIS Never smoker [facility] Work Phone: Start: 04-19-2014 End: 01-26-2020 Tobacco use and exposure Never used [facility] Start: 01-26-2020 End: 12-16-2022 Alcohol intake Current non-drinker of alcohol (finding) [facility] Start: 1950 Sex Assigned At Not on file [facility] Start: 02-10-2022 End: 12-16-2022 Exposure to SARS-CoV-2 (event) Not sure [facility] Start: 12-16-2022 Alcohol intake [facility] Start: 12-16-2022 History SDOH Alcohol Std Drinks 0 [facility] Start: 1950 Sex Assigned At Male S [facility] Clinical Notes 01-19-2019 to 01-22-2023 Telephone Encounter - Blaire Lawrence MA - 01/22/2023 5:31 PM EDTTelephone Encounter - Blaire Lawrence MA - 01/22/2023 5:31 PM EDTTelephone Encounter - Ava Galvez MA - 01/22/2023 9:05 AM EDT Note Date & Type Note Facility 01-22-2023 Telephone encounter Note Please assist [facility] 01-22-2023 Miscellaneous Notes Please assist -Patient [...] the medication: Yes documented in this encounter [facility] [employer] 01-22-2023 Telephone encounter Note -Patient needs checkup with me as well. I know he had the Medicare annual wellness exam but he needs to check with me also once a year [facility] [employer] 01-22-2023 Telephone encounter Note Rx loaded [facility] [employer] 01-22-2023 Telephone encounter Note Medication name: carvedilol [...] prior to picking up the medication: Yes [facility] 12-16-2022 History of Presen t illness Narrative Images from the original note were not included. [facility] [address] [facility] [address] Dept: [phone] Dept Chief Complaint: Jefferson Barreto is an [...] complication, without long-term current use of insulin ([facility]) (HCC) Chronic, controlled Controlled with diet [...] No results found. documented in this encounter [facility] [employer] 02-20-2022 Note HNO ID: [id number] Author: Nikolas Guerrero MD Service: ? Author Type: Physician Type: Progress Notes Filed: 02/20/2022 4:31 PM Note Text: This note was created using Instabankriter. Subjective Jefferson Barreto is a 71 year [...] was started on amiodarone and cardioverted. His OHP2-TN0-QXKf score is 2. Interval history: Mr. Barreto presents for follow-up accompanied by his . He remained in sinus rhythm and has not required additional ablations or antiarrhythmic therapy. He remains on oral anticoagulation with Eliquis with no obvious bleeding complications. ECG today shows sinus rhythm at 65 beats minute. Mr. Barreto continues doing well from EP standpoint. He will continue follow-up with his pasting inspector and we can see him in EPS follow-up on as-needed basis. PAST MEDICAL HISTORY Diagnosis Date - Atrial fibrillation (HCC) - Atrial flutter with rapid ventricular response (HCC) - Dyspnea on exertion - History of DVT (deep vein thrombosis) - History of pulmonary embolism Following ankle fusion - HTN (hypertension) - longterm (current) use of anticoagulants - Palpitations - [...] tablet by mouth once daily. - Saw [place] 160 mg capsule Take 320 mg by [...] Mood normal. Assessment and Plan As above. [facility] 02-20-2022 History of Presen t illness Narrative This note was created using [employer]abank[employer]. Subjective Jefferson Barreto is a 71 year [...] was started on amiodarone and cardioverted. His ZAF5-OW5-CEYa score is 2. Interval history: Mr. Barreto presents for follow-up accompanied by his . He remained in sinus rhythm and has not required additional ablations or antiarrhythmic therapy. He remains on oral anticoagulation with Eliquis with no obvious bleeding complications. ECG today shows sinus rhythm at 65 beats minute. Mr. Barreto continues doing well from EP standpoint. He will continue follow-up with his pasting inspector and we can see him in EPS follow-up on as-needed basis. PAST MEDICAL HISTORY Diagnosis Date Atrial fibrillation (HCC) Atrial flutter with rapid ventricular response (HCC) Dyspnea on exertion History of DVT (deep vein thrombosis) History of pulmonary embolism Following ankle fusion HTN (hypertension) longterm (current) use of anticoagulants Palpitations Paroxysmal atrial [...] 1 tablet by mouth once daily. Saw [place] 160 mg capsule Take 320 mg by [...] Plan As above. documented in this encounter [facility] 02-20-2022 Nurse Note No cardiac complaints today. Tala Berry MA documented in this encounter [facility] 10-18-2021 Miscellaneous Notes Patient's request for medication is as follows: Pending Prescriptions Disp Refills CARVEDILOL 12.5 MG TABLET 225 tablet 1 Sig: TAKE 1&1/2 TABLET IN THE MORNING & 1 TABLET IN THE EVENING LEATHA: Yes Last seen 02/20/2021. Follow up scheduled for 02/20/2022. Prescription(s) as above. Please process accordingly. Marian Sauceda LPN documented in this encounter [facility] 02-20-2021 Instructions Slim Loaiza APRN.SUSTAINABLE SYSTEMS ANALYST - 02/20/2021 4:30 PM EDT Atrial Fibrillation [...] healthcare provider's instructions for treatment. Developed by [employer]. Published by [employer]. Copyright 2014 [employer] and/or one of its subsidiaries. All rights reserved. documented in this encounter [facility] 02-20-2021 History of Presen t illness Narrative PRIMARY CARE PHYSICIAN: LINDEN VELÁZQUEZ [address] [place] [id number] Patient Care Team: Linden Velázquez as PCP [...] was started on amiodarone and cardioverted. His MST5-BQ7-XCQg score is 2. Mr. Jefferson Barreto presents [...] months. Interval history Virtual Visit Slim Josse, KITCHEN AND COUNTER WORKER 01/26/2020: Today patient reports that he is [...] any bleeding issues. Interval history Slim Loaiza, KITCHEN AND COUNTER WORKER 02/20/2021: Patient presents today for annual follow-up regarding paroxysmal atrial fibrillation. is with him today. He follows regularly with his pasting inspector Dr. Patel. Patient denies any new medical or surgical history in the past year. He states he was feeling fatigued so his carvedilol was decreased a little by his pasting inspector and then 3 months later blood pressure [...] pulmonary embolism Following ankle fusion HTN (hypertension) longterm (current) use of anticoagulants Palpitations Paroxysmal atrial fibrillation (HCC) Paroxysmal atrial flutter (HCC) Spinal stenosis PAST SURGICAL HISTORY Procedure Laterality Date AFIB ABLATION/PULM VEIN ISOLATION 01/18/2019 PVI, RF ablation for AF & typical atrial flutter by Dr. Guerrero at [facility] BACK SURGERY thoracic/ lumvar spine [facility] CARDIOVERSION 01/18/2019 CARDIOVERSION 01/27/2019 CARPAL TUNNEL COLONOSCOP W/ OR W/O [facility] SPEC 10/2002 Colonoscopy/[facility]OT [facility] HX PAST SURGICAL HISTORY OF [...] Unknown Sulfamethoxazole Hives Trimethoprim Hives MEDICATIONS: Saw [place] 160 mg capsule Take 320 mg by [...] V15.89, ICD10: Z91.89 5. Current use of long term care pharmacist anticoagulation - ICD9: V58.61, ICD10: Z79.01 At risk for stroke due to atrial fibrillation and atrial flutter with [id number] score 2 (HTN, age) and is on stroke prevention strategy with long-term anticoagulation with Eliquis 5 mg twice daily. Risk to benefit appears favorable to continue. Patient stable from the EP standpoint and is 2 years post ablation. He will continue follow-up with his pasting inspector Dr. Patel and follow-up with Dr. Guerrero in 1 year, or sooner if symptoms or clinical evidence of recurrent A. fib/flutter. Slim Loaiza APRN.CNS Return for follow up with Dr. Guerrero in one year, EKG. This note was partially generated using [employer] voice recognition system, and there may be some incorrect words, spellings, and punctuation that were not noted in checking the note before saving. documented in this encounter [facility] documented as of this encounter (statuses as of 02/20/2021) [facility]05-14-2019 History of Past illness Narrative* Problem Noted Date Resolved Date Persistent atrial fibrillation 01/19/2019 0 01/19/2019 Atrial flutter, paroxysmal 01/19/201901/19 documented as of this encounter (statuses as of 10/18/2021) [facility] History of Past illness Narrative* Problem Noted Date Resolved Date Persistent atrial fibrillation 01/19/2019 0 01/19/2019 Atrial flutter, paroxysmal 01/19/201901/19 documented as of this encounter (statuses as of 02/20/2022) [facility] Diagnosis Paroxysmal atrial fibrillation (HCC)- Primary Atrial fibrillation Typical atrial flutter (HCC) Atrial flutter Status post ablation operation for arrhythmia Other postprocedural status At risk for stroke Other specified personal history presenting hazards to health Current use of long term care pharmacist anticoagulation Long-term (current) use of anticoagulants documented in this encounter [facility] note* Diagnosis Paroxysmal atrial fibrillation (HCC)- Primary Atrial fibrillation Atrial flutter with rapid ventricular response (HCC) Atrial flutter documented [facility] encounter [facility]* Diagnosis Medicare annual wellness visit, subsequent- Primary Labile hypertension Type 2 diabetes mellitus without complication, without long-term current use of insulin ([facility]) (HCC) Hyperlipidemia, unspecified hyperlipidemia type Dyspnea on exertion Other dyspnea and respiratory abnormality documented in this encounter [facility] HealthInstructions* Attachments The following attachments cannot be sent through Care Everywhere. * Weight Loss Tips (Welsh) [facility] Purpose Family History No Family History Records FoundNo Family History Records FoundNo Family History Records Found Advance Directives No Advanced Directives Records FoundDocuments on File Type Date Recorded Patient Supply Aide Expl anation Advance Directive(s) 01/26/2019 2:15 PM Advance Directive(s) 01/18/2019 6:18 AM History of Past Illness Problem Noted Date Resolved Date Persistent atrial fibrillation 01/19/2019 0 01/19/2019 Atrial flutter, paroxysmal 01/19/201901/19 Additional Source Comments (unrecognized sect ion and content) No Status Records FoundNo Status Records FoundNo Status Records Found INFORMATION SOURCE (unrecogn ized section and content) DATE CREATED AUTHOR AUTHOR'S ORGANIZ ATION 02/21/2022 [facility] DATE CREATED AUTHOR AUTHOR'S ORGANIZ ATION 07/03/2023 [facility] Source Comments (unrecognize d section and content) In the event this informatio n is protected by the Federal Confidentiality of Alcohol and Drug Abuse Patient Records regulations: The Federal rules restrict any use of the information to criminally investigate or prosecute any alcohol or drug abuse patient.[facility] the event this information is protected by the Federal Confidentiality of Alcohol and Drug Abuse Patient Records regulations: The Federal rules restrict any use of the information to criminally investigate or prosecute any alcohol or drug abuse patient.[facility] the event this information is protected by the Federal Confidentiality of Alcohol and Drug Abuse Patient Records regulations: The Federal rules restrict any use of the information to criminally investigate or prosecute any alcohol or drug abuse patient.[facility] the event this information is protected by the Federal Confidentiality of Alcohol and Drug Abuse Patient Records regulations: The Federal rules restrict any use of the information to criminally investigate or prosecute any alcohol or drug abuse patient.[facility] Reason for Visit (unrecogniz ed section and content) Reason Comments CARD Follow Up Annual paroxysmal a-fib Reason Comments CARD Follow Up Annual atrial flutter wit h RVR Reason Comments Medicare Annual Wellness Visit Initial Shortness of Breath Tying his shoes Reason Onset Date Comments Med Refill 01/22/2023 Telephone Encounter - Adelita Wellington (Academic Support Center Director) - 09/15/2020 7:50 AM EST Miscellaneous Notes [...] Care Teams (unrecognized sec tion and content) Electronic Installer Relationship Specialty Start Date End Date Linden Velázquez [address] [place] [address] PCP - General Family Practice 12/22/18 Electronic Installer Relationship Specialty Start Date End Date Linden Velázquez, DO [address] [place] [address] PCP - General 02/06/19 Electronic Installer Relationship Specialty Start Date End Date Linden Velázquez, [address] [place] [address] PCP - General 02/06/19 FOR [...] BE BASED ON THE PRIMARY CLINICAL RECORDS. [facility]. provides no warranty or guarantee of the accuracy or completeness of information in this document.
[2023-10-24 19:56] VITALS: BP 153/83; PULSE 76; RESP 18; TEMP 36.5; O2SAT 95
[2023-10-24] MEDS: Carvedilol 12.5 MG Tablet PO (19:57)
[2023-10-24 21:55] VITALS: BP 134/80; PULSE 69; RESP 18; TEMP 36.4; O2SAT 95
[2023-10-25 03:00] VITALS: BP 133/62; PULSE 73; RESP 16; TEMP 36.7; O2SAT 92
[2023-10-25] MEDS: Lactated Ringers 1,000 ML 100 ML IV (03:11)
[2023-10-25 03:57] VITALS: BMI 31.0
[2023-10-25 06:10] LABS: Absolute Lymphocyte Count 1.92 X10^3/uL (0.83-4.51); Absolute Neutrophil Count 3.7 X10^3/uL (2.0-7.7); Basophil# 0.02 X10^3/uL; Basophil% 0.3 % (0-1); Eosinophil# 0.06 X10^3/uL; Eosinophils% 0.9 % (0-5); Hemoglobin 13.2 g/dL (13.0-16.5); Lymphocyte # 1.92 X10^3/ul (0.83-4.51); Lymphocyte % 29.9 % (19-41); Mean Corp Hgb Conc 33.8 g/dL (32-36); Mean Corpuscular Hgb 33.5 pg (27.0-32.0); Mean Platelet Vol. 10.6 fl (6.2-12.0); Monocyte% 10.9 % (0-10); NRBC Flagged by Analyzer 0 % (0-5); Neutrophil # 3.71 X10^3/uL (2.7-7.7); Neutrophil % 57.7 % (47-70); Platelet Count 225 K/mm3 (150-450); RBC Distribution Width CV 13.2 % (11.6-14.6); RBC Distribution Width SD 47.5 fl (35.1-43.9); Red Blood Count 3.94 M/mm3 (4.6-6.2); White Blood Count 6.4 K/mm3 (4.4-11.0)
[2023-10-25 07:00] LABS: ALB/GLOB Ratio 0.9 RATIO (0.9-2.4); AST(SGOT) 19 U/L (15-37); Alanine Aminotransfer ALT/SGPT 19 U/L (16-61); Albumin, Serum 2.9 g/dL (3.2-5.0); Alkaline Phosphatase 40 U/L (45-117); Anion Gap 3 (5-15); BUN 21 mg/dL (7-18); BUN/Creat Ratio 26.2 RATIO (10-20); Calcium,Total 8.1 mg/dL (8.5-10.1); Chloride 107 mmol/L (98-107); EST Glomerular Filtration Rate 100 mL/min (>60); Est Glom Filt Rate - Afr Amer 122 mL/min (>60); Estimated Creatinine Clearance 101.03 ml/min; Globulin 3.2 g/dL (2.2-4.2); Glucose 123 mg/dL (74-106); Magnesium 2.1 mg/dL (1.6-2.6); Phosphorus 2.6 mg/dL (2.5-4.9); Potassium 3.7 mmol/L (3.5-5.1); Protein, Total 6.1 g/dL (6.4-8.2); Sodium Level 139 mmol/L (136-145); Thyroid Stim Hormone (TSH) 1.02 uIU/mL (0.358-3.74)
--- NOTE | 2023-10-25 07:50 | RAD_ITS ---
Exam: Small bowel follow-through. HISTORY: Small bowel obstruction. COMPARISON: CT scan 10/24/2023 FINDINGS: Server Administrator film shows abnormal distended small bowel loops in the left mid abdomen. Patient was given water soluble contrast through nasogastric tube. Contrast passes easily into the duodenum and jejunum. Prominent distention of loops of jejunum. By 3 hours, contrast has passed throughout the entire small bowel and appears to have reached the right colon. This indicates no evidence for obstruction. RAD/Small Bowel Series Only IMPRESSION: By 3 hours there appears to be contrast in the right colon. Therefore no evidence for obstruction. Electronically Signed: Ilya Muhammad MD at 16:13 EST ,
--- NOTE | 2023-10-25 07:50 | PN.SURG_ITS ---
Subjective Subjective Patient states abdominal pain has resolved. Patient did have some flatus yesterday. Objective Data Objective Data Vital Signs: Vital Signs Temp Pulse Resp BP Pulse Ox O2 Del Method 98.1 F 73 16 133/62 H 92 Nasal Cannula 10/25/23 03:00 10/25/23 03:00 10/25/23 03:00 10/25/23 03:00 10/25/23 03:00 10/25/23 03:00 Oxygen Delivery Method Nasal Cannula Weight: 222 lb 10.67 oz Body Mass Index (BMI) 31.0 Intake & Output: Intake and Output for Last 24 Hours 10/23/23 10/24/23 10/25/23 23:59 23:59 23:59 Intake Total 1140 / 1140 1021.67 / 1021.67 Output Total 400 / 400 650 / 650 Balance 740 / 740 371.67 / 371.67 Lab / Micro Data 10/25/23 04:53 10/25/23 04:53 Labs: Laboratory Results - last 24 hr 10/24/23 13:04: WBC 9.0, RBC 4.97, Hgb 15.8, Hct 48.2, MCV 97.0 H, MCH 31.8, MCHC 32.8, RDW Std Deviation 46.8 H, RDW Coeff of Brock 13.1, Plt Count 237, MPV 10.4, Immature Gran % (Auto) 0.300, Neut % (Auto) 67.4, Lymph % (Auto) 20.8, [place] % (Auto) 10.7 H, Eos % (Auto) 0.4, Baso % (Auto) 0.4, Absolute Neuts (auto) 6.0, Absolute Lymphs (auto) 1.86, Nucleated RBC % 0, Sodium 137, Potassium 4.4, Chloride 105, Carbon Dioxide 26.0, Anion Gap 6, BUN 22 H, Creatinine 1.01, Estim Creat Clear Calc 80.32, Est GFR (MDRD) Af Amer 93, Est GFR (MDRD) Non-Af 77, BUN/Creatinine Ratio 21.8 H, Glucose 174 H, Hemoglobin A1c 6.4 H, Calcium 9.0, Total Bilirubin 1.20 H, AST 25, ALT 23, Alkaline Phosphatase 49, Total Protein 7.5, Albumin 3.3, Globulin 4.2, Albumin/Globulin Ratio 0.8 L, Lipase 13 02/16/24 14:30: Urine Color Yellow, Urine Clarity Clear, Urine pH 5.0, Ur Specific [place] 1.025, Urine Protein 30 H, Urine Glucose (UA) Normal, Urine Ketones 5 H, Urine Occult Blood Negative, Urine Nitrite Negative, Urine Bilirubin 1 H, Urine Urobilinogen 1 H, Ur Leukocyte Esterase 25 H, Urine RBC 0 SEEN, Urine WBC 0-5 SEEN, Ur Squamous Epith Cells 0 SEEN, Calcium Oxalate Crystal 3+, Urine Bacteria 1+, Urine Mucus 2+ 10/25/23 04:53: WBC 6.4, RBC 3.94 L, Hgb 13.2, Hct 39.0 L, MCV 99.0 H, MCH 33.5 H, MCHC 33.8, RDW Std Deviation 47.5 H, RDW Coeff of Brock 13.2, Plt Count 225, MPV 10.6, Immature Gran % (Auto) 0.300, Neut % (Auto) 57.7, Lymph % (Auto) 29.9, [place] % (Auto) 10.9 H, Eos % (Auto) 0.9, Baso % (Auto) 0.3, Absolute Neuts (auto) 3.7, Absolute Lymphs (auto) 1.92, Nucleated RBC % 0, Sodium 139, Potassium 3.7, Chloride 107, Carbon Dioxide 29.0, Anion Gap 3 L, BUN 21 H, Creatinine 0.80, Estim Creat Clear Calc 101.03, Est GFR (MDRD) Af Amer 122, Est GFR (MDRD) Non-Af 100, BUN/Creatinine Ratio 26.2 H, Glucose 123 H, Calcium 8.1 L, Phosphorus 2.6, Magnesium 2.1, Total Bilirubin 1.20 H, AST 19, ALT 19, Alkaline Phosphatase 40 L , Total Protein 6.1 L, Albumin 2.9 L, Globulin 3.2, Albumin/Globulin Ratio 0.9, TSH 1.02 Radiography Diagnostic Testing: Radiology Impression Abdomen/Pelvis CT 10/24/23 12:56 IMPRESSION: Findings in keeping with the partial versus early complete small bowel obstruction with the transition point in the mid ileal level. Gas and fecal material are seen in the colon. There is fluid distention of the stomach. Fatty infiltration of liver. Nonobstructive Electronically Signed: Charlie De La Rosa MD at 14:47 EST , KUB X-Ray 10/24/23 15:50 IMPRESSION: 1. Nasogastric tube in place with the distal tip in the proximal stomach. 2. Dilated gas-filled loops of small bowel compatible with mechanical obstruction. Electronically Signed: Chato Alvarado MD at 16:19 EST , Physical Exam Narrative NG in place-canister mainly clear for about 1-200cc Const oriented x3 and no apparent distress Resp normal respiratory effort Cardio regular rate GI soft to palpation and non-tender Inspection: Negative for abdominal distention Assessment & Plan Assessment/Plan (1) Partial small bowel obstruction: (2) Nausea and vomiting: (3) Paroxysmal atrial fibrillation: (4) intermediate frame tender current use of anticoagulant: PLAN: Plan Will check a Gastrografin small bowel follow-through this morning?continue NG and IV fluids. Patient states that abdominal pain has resolved and did not have much in the canister but had 150 of clear liquid which hopefully means things have been moving through. Holding Xarelto in case patient would need surgery Moon Andrews M.D. Pager: [phone] [facility] [address] [place] [address], Outpatient [place], [address] [place] [address] Office: [phone] Charges/Coding Visit Charges Inpatient E&M: 77630 Subs Hosp L2
[2023-10-25 08:04] VITALS: BP 138/82; PULSE 72; RESP 18; TEMP 36.9; O2SAT 92
[2023-10-25] MEDS: BENZOCAINE/MENTHOL 1 LOZENGE MUCOUS MEM (08:17)
--- NOTE | 2023-10-25 08:24 | PN.HOSP_ITS ---
Reason for Visit Reason for Visit: Diagnoses Paroxysmal atrial fibrillation (10/24/23) Partial intestinal obstruction, unspecified as to cause (10/24/23) Complete intestinal obstruction, unspecified as to cause (10/24/23) Unspecified abdominal pain (10/24/23) Nausea with vomiting, unspecified (10/24/23) Hyperglycemia, unspecified (10/24/23) [facility] (current) use of anticoagulants (10/24/23) Subjective Subjective Feeling better. Objective Data Objective Data Vital Signs: Vital Signs Temp Pulse Resp BP Pulse Ox O2 Del Method 36.9 C 72 18 138/82 H 92 Room Air 10/25/23 08:04 10/25/23 08:04 10/25/23 08:04 10/25/23 08:04 10/25/23 08:04 10/25/23 08:11 Oxygen Delivery Method Room Air Weight: 101 kg Body Mass Index (BMI) 31.0 Intake & Output: Intake and Output for Last 24 Hours 10/23/23 10/24/23 10/25/23 23:59 23:59 23:59 Intake Total 1140 / 1140 1021.67 / 1021.67 Output Total 400 / 400 650 / 650 Balance 740 / 740 371.67 / 371.67 Lab / Micro Data 10/25/23 04:53 10/25/23 04:53 Labs: Laboratory Results - last 24 hr 10/24/23 13:04: WBC 9.0, RBC 4.97, Hgb 15.8, Hct 48.2, MCV 97.0 H, MCH 31.8, MCHC 32.8, RDW Std Deviation 46.8 H, RDW Coeff of Brock 13.1, Plt Count 237, MPV 10.4, Immature Gran % (Auto) 0.300, Neut % (Auto) 67.4, Lymph % (Auto) 20.8, [place] % (Auto) 10.7 H, Eos % (Auto) 0.4, Baso % (Auto) 0.4, Absolute Neuts (auto) 6.0, Absolute Lymphs (auto) 1.86, Nucleated RBC % 0, Sodium 137, Potassium 4.4, Chloride 105, Carbon Dioxide 26.0, Anion Gap 6, BUN 22 H, Creatinine 1.01, Estim Creat Clear Calc 80.32, Est GFR (MDRD) Af Amer 93, Est GFR (MDRD) Non-Af 77, BUN/Creatinine Ratio 21.8 H, Glucose 174 H, Hemoglobin A1c 6.4 H, Calcium 9.0, Total Bilirubin 1.20 H, AST 25, ALT 23, Alkaline Phosphatase 49, Total Protein 7.5, Albumin 3.3, Globulin 4.2, Albumin/Globulin Ratio 0.8 L, Lipase 13 10/24/23 14:30: Urine Color Yellow, Urine Clarity Clear, Urine pH 5.0, Ur Specific [place] 1.025, Urine Protein 30 H, Urine Glucose (UA) Normal, Urine Ketones 5 H, Urine Occult Blood Negative, Urine Nitrite Negative, Urine Bilirubin 1 H, Urine Urobilinogen 1 H, Ur Leukocyte Esterase 25 H, Urine RBC 0 SEEN, Urine WBC 0-5 SEEN, Ur Squamous Epith Cells 0 SEEN, Calcium Oxalate Crystal 3+, Urine Bacteria 1+, Urine Mucus 2+ 10/25/23 04:53: WBC 6.4, RBC 3.94 L, Hgb 13.2, Hct 39.0 L, MCV 99.0 H, MCH 33.5 H, MCHC 33.8, RDW Std Deviation 47.5 H, RDW Coeff of Brock 13.2, Plt Count 225, MPV 10.6, Immature Gran % (Auto) 0.300, Neut % (Auto) 57.7, Lymph % (Auto) 29.9, [place] % (Auto) 10.9 H, Eos % (Auto) 0.9, Baso % (Auto) 0.3, Absolute Neuts (auto) 3.7, Absolute Lymphs (auto) 1.92, Nucleated RBC % 0, Sodium 139, Potassium 3.7, Chloride 107, Carbon Dioxide 29.0, Anion Gap 3 L, BUN 21 H, Creatinine 0.80, Estim Creat Clear Calc 101.03, Est GFR (MDRD) Af Amer 122, Est GFR (MDRD) Non-Af 100, BUN/Creatinine Ratio 26.2 H, Glucose 123 H, Calcium 8.1 L, Phosphorus 2.6, Magnesium 2.1, Total Bilirubin 1.20 H, AST 19, ALT 19, Alkaline Phosphatase 40 L , Total Protein 6.1 L, Albumin 2.9 L, Globulin 3.2, Albumin/Globulin Ratio 0.9, TSH 1.02 Radiography Diagnostic Testing: Radiology Impression Abdomen/Pelvis CT 10/24/23 12:56 IMPRESSION: Findings in keeping with the partial versus early complete small bowel obstruction with the transition point in the mid ileal level. Gas and fecal material are seen in the colon. There is fluid distention of the stomach. Fatty infiltration of liver. Nonobstructive Electronically Signed: Charlie De La Rosa MD at 14:47 EST , KUB X-Ray 10/24/23 15:50 IMPRESSION: 1. Nasogastric tube in place with the distal tip in the proximal stomach. 2. Dilated gas-filled loops of small bowel compatible with mechanical obstruction. Electronically Signed: Chato Alvarado MD at 16:19 EST , Physical Exam Const alert and no apparent distress HEENT head/scalp atraumatic and moist oral mucous membranes Cardio regular rate, regular rhythm, S1 normal heart sound and S2 normal heart sound GI normal to inspection, nondistended, normoactive bowel sounds, soft to palpation, non-tender and non-distended Neuro Sensorium / Orientation: awake Assessment & Plan Assessment/Plan (1) Complete small bowel obstruction: (2) Abdominal pain: (3) Nausea and vomiting: (4) Hyperglycemia: PLAN: Plan Small bowel obstruction * General surgery on consult * Small bowel follow-through showing contrast in the colon. * NG tube to be discontinued patient started clear diet. If tolerates well then he could be discharged DVT prophylaxis -Lovenox subcu 40 mg daily CODE STATUS -Full code as discussed prior to admission
--- NOTE | 2023-10-25 11:33 | CPS ---
Pt out of room, no pep or SMI at this time
[2023-10-25] MEDS: Pantoprazole Sodium 40 MG in 0.9% Normal Saline (100mL MB+) 100 ML 330 MG IV (12:03)
[2023-10-25 14:00] VITALS: BP 134/78; PULSE 71; RESP 15; TEMP 36.5; O2SAT 92
--- NOTE | 2023-10-25 14:06 | DCINST_ITS ---
Discharge Instructions Diet Discharge Diet: - ([place] diet. Advance as tolerated.) Follow Up Care Test Results: Test results from this visit will be discussed in further detail at your follow- up appointment, if applicable. Discharge Plan Admission Admit Date/Time: 10/24/23 15:20 Primary Reason for Your Visit: Small bowel obstruction Attending Provider: Kedar Figueroa Primary Care Provider: Linden Velázquez Consulting Providers: Moon Andrews; Pratima Loaiza Instructions Additional Instructions / Restrictions: You had a small bowel obstruction that fortunately resolved on its own. It is unclear if this would recur again but if you still have worsening abdominal pain similar to this, be evaluated emergency room. Discharge Orders/Prescriptions Prescriptions: Continued acetaminophen 500 mg capsule 500 mg PO BID PRN (Reason: pain) multivitamin 1 EACH tablet 1 ea PO DAILY lisinopril 10 mg tablet 10 mg PO DAILY Metamucil 3.4 gram/5.4 gram powder 2 tsp PO DAILY carvedilol 12.5 mg tablet 12.5 mg PO BID Qty: 60 0RF Xarelto 20 mg tablet See Rx Instructions .ROUTE .COMPLEX Qty: 30 11RF Dose Instruction: TAKE 1 TABLET BY MOUTH EVERY DAY WITH EVENING MEAL Rx Instructions: TAKE 1 TABLET BY MOUTH EVERY DAY WITH EVENING MEAL Referrals / Follow Up: Linden Velázquez DO [Primary Care Provider] - Within 2 Weeks Disposition Disposition (needs filled in before D/C Order can be placed): Home, Self Care
[2023-10-25] MEDS: Lisinopril 10 MG Tablet PO (14:13)
[2023-10-25] MEDS: Carvedilol 12.5 MG Tablet PO (14:13)
--- NOTE | 2023-10-25 14:45 | CASEMGMT ---
GERMAN PRYOR DC Planning Assessment: Face to Face with patient for initial transition planning/care coordination assessment. GERMAN PRYRO introduced self and role at [facility], pt voices understanding. Pt alert, oriented and agreeable to participating in assessment with at bedside.? Care providers, pharmacy, and demographics verified. Admitting dx: SBO PCP: Eber Specialists: ABIMAEL Preferred [facility]acy: [facility] Insurance: MCR A/B, MMO Prescription Benefit: yes LNOK: spouse Danyell Living Arrangements: Pt resides with his in a single story home. Pt states he is independent with ADLs and IADLs. Transportation: pt drives and is able if he is not. DME: shower seat, cane and walker all available although he does not use these. uses grab bars in shower HHC/SNF: none Pt?s goal/plan: return home, pt denies any discharge needs or concerns at this time. Discussed f/u with PCP for ongoing monitoring of glucose and possible glucometer. Plan: Home with support of his . Brittney Wilkins RN AC
--- NOTE | 2023-10-25 15:29 | CPS ---
Pt states he will do on own
--- NOTE | 2023-10-25 16:50 | DS.PCM_ITS ---
Providers Date of Admission: 10/24/23 Primary Care Physician: Dr. Linden Velázquez, Consultations 10/24/23 16:11 Consult: General Surgery Routine Consulting Provider: Moon Andrews Reason for Consult: SBO EMERGENT Consult: No MD Notified: Yes Date Notified: 10/24/23 Time Notified: 15:25 Method of Notification: ED Physician Initiated Reason For Visit: SBO Diagnosis Discharge Diagnosis (1) Complete small bowel obstruction: Status: Acute Code(s): K56.601 - Complete intestinal obstruction, unspecified as to cause (2) Abdominal pain: Status: Acute Code(s): R10.9 - Unspecified abdominal pain (3) Nausea and vomiting: Status: Acute Code(s): R11.2 - Nausea with vomiting, unspecified (4) Hyperglycemia: Status: Acute Code(s): R73.9 - Hyperglycemia, unspecified Plan Small bowel obstruction * General surgery on consult * Small bowel follow-through showing contrast in the colon. * NG tube to be discontinued patient started clear diet. If tolerates well then he could be discharged DVT prophylaxis -Lovenox subcu 40 mg daily CODE STATUS -Full code as discussed prior to admission Medications at Discharge Home Medications multivitamin 1 ea PO DAILY supplement 07/13/17 acetaminophen 500 mg capsule 500 mg PO BID PRN pain 02/12/23 carvedilol 12.5 mg tablet 12.5 mg PO BID #60 tabs 02/21/23 rivaroxaban 20 mg tablet (Xarelto) See Rx Instructions .Route .COMPLEX #30 tabs 06/05/23 lisinopril 10 mg tablet 10 mg PO DAILY 10/24/23 psyllium husk 3.4 gram/5.4 gram oral powder (Metamucil) 2 tsp PO DAILY 10/24/23 Hospital Course Operations None Procedures None Summary of Care Provided Hospital Course: Patient developed a small bowel suction. Patient had NG tube placed the emergency room. Patient had a small bowel follow-through performed that showed contrast extending into the colon. NG tube was removed patient's diet was advanced to clears. Patient is doing well. Patient be discharged home. Patient has unusual for some has never had prior surgery to have small bowel obstruction. It is possible could recur again. Patient advised to have a bland diet advance as tolerated. Weight / BMI Weight Weight: 101 kg Body Mass Index (BMI) 31.0 ABG / Lab / Microbiology Data 10/25/23 04:53 10/25/23 04:53 Laboratory: Laboratory Results - last 24 hr 10/25/23 04:53: WBC 6.4, RBC 3.94 L, Hgb 13.2, Hct 39.0 L, MCV 99.0 H, MCH 33.5 H, MCHC 33.8, RDW Std Deviation 47.5 H, RDW Coeff of Brock 13.2, Plt Count 225, MPV 10.6, Immature Gran % (Auto) 0.300, Neut % (Auto) 57.7, Lymph % (Auto) 29.9, [place] % (Auto) 10.9 H, Eos % (Auto) 0.9, Baso % (Auto) 0.3, Absolute Neuts (auto) 3.7, Absolute Lymphs (auto) 1.92, Nucleated RBC % 0, Sodium 139, Potassium 3.7, Chloride 107, Carbon Dioxide 29.0, Anion Gap 3 L, BUN 21 H, Creatinine 0.80, Estim Creat Clear Calc 101.03, Est GFR (MDRD) Af Amer 122, Est GFR (MDRD) Non-Af 100, BUN/Creatinine Ratio 26.2 H, Glucose 123 H, Calcium 8.1 L, Phosphorus 2.6, Magnesium 2.1, Total Bilirubin 1.20 H, AST 19, ALT 19, Alkaline Phosphatase 40 L , Total Protein 6.1 L, Albumin 2.9 L, Globulin 3.2, Albumin/Globulin Ratio 0.9, TSH 1.02 Radiography Diagnostic Testing: Radiology Impression Small Bowel X-Ray 10/25/23 07:50 IMPRESSION: By 3 hours there appears to be contrast in the right colon. Therefore no evidence for obstruction. Electronically Signed: Ilya Muhammad MD at 16:13 EST , D/C Instructions Discharge Diet: - ([place] diet. Advance as tolerated.) Meaningful Use Info Meaningful Use Diagnoses (Choose all that apply): None applicable Discharge Plan Admission Admit Date/Time: 10/24/23 15:20 Primary Reason for Your Visit: Small bowel obstruction Attending Provider: eKdar Figueroa Primary Care Provider: Linden Velázquez Consulting Providers: Moon Andrews; Pratima Loaiza Instructions Additional Instructions / Restrictions: You had a small bowel obstruction that fortunately resolved on its own. It is unclear if this would recur again but if you still have worsening abdominal pain similar to this, be evaluated emergency room. Discharge Orders/Prescriptions Prescriptions: Continued acetaminophen 500 mg capsule 500 mg PO BID PRN (Reason: pain) multivitamin 1 EACH tablet 1 ea PO DAILY lisinopril 10 mg tablet 10 mg PO DAILY Metamucil 3.4 gram/5.4 gram powder 2 tsp PO DAILY carvedilol 12.5 mg tablet 12.5 mg PO BID Qty: 60 0RF Xarelto 20 mg tablet See Rx Instructions .ROUTE .COMPLEX Qty: 30 11RF Dose Instruction: TAKE 1 TABLET BY MOUTH EVERY DAY WITH EVENING MEAL Rx Instructions: TAKE 1 TABLET BY MOUTH EVERY DAY WITH EVENING MEAL Referrals / Follow Up: Linden Velázquez DO [Primary Care Provider] - Within 2 Weeks Disposition Disposition (needs filled in before D/C Order can be placed): Home, Self Care Charges/Coding Visit Charges Inpatient E&M: 37174 Disch Hosp
== END 2023-10-25 17:11 | disposition home or self-care (01) | DRG 394 ==
LOC: ED 15:26 → PCU 15:32
PROVIDERS: Physician Assistant; Admitting Provider Internal Medicine; Emergency Provider Emergency Medicine; PCP Family Medicine
DX: K42.9 Umbilical hernia without obstruction or gangrene (principal); K56.601 Complete intestinal obstruction, unspecified as to cause; I48.0 Paroxysmal atrial fibrillation; I10 Essential (primary) hypertension; E86.0 Dehydration; E66.9 Obesity, unspecified; R73.9 Hyperglycemia, unspecified; Z79.01 Long term (current) use of anticoagulants; Z79.899 Other long term (current) drug therapy; Z86.718 Personal history of other venous thrombosis and embolism; Z86.711 Personal history of pulmonary embolism; Z68.31 Body mass index [BMI] 31.0-31.9, adult
CPT/HCPCS: 36415; 74018; 74177; 74250; 80053; 81001; 83036; 83690; 83735; 84100; 84443; 85025; 94668; 97802; 99285; J7030; J7120; Q9967; A4216; J2405

== ENCOUNTER 2023-12-31 08:52 | Day surgery (SDC) | payer MEDICARE, SELFPAY ==
--- NOTE | 2023-12-31 09:07 | HP.PCM_ITS ---
HPI - General General Date of Service: 12/31/23 HPI Narrative JEFFERSON BARRETO, is a 73 M who presents for screening colonoscopy. Patient denies any clinical changes since time of office visit. Patient was able to stop his Xarelto. office visit 11/18/23 HPI HPI: 73-year-old male presents for screening colonoscopy/follow-up for hospitalization small bowel obstruction. Patient small bowel obstruction resolved with conservative management and small bowel follow-through made to the colon. Patient states he has been tolerating diet well and having bowel function denies any further abdominal pain. Patient is on Xarelto due to previous cardiac ablation/cardioversion. Patient states he has bowel movements daily denies any blood denies any family history of colon cancer. Patient's last colonoscopy was 2011. Currently patient denies any abdominal pain/na usea/vomiting/reflux. [facility]LY [facility], [facility] Medical History (Updated 12/30/23 @ 09:37 by Justa Hill) Arthritis Atrial fibrillation Atrial fibrillation with RVR Back pain Cardiology follow-up encounter Diabetes Dyspnea on exertion Essential hypertension History of cardioversion History of DVT (deep vein thrombosis) History of echocardiogram History of stress test Leg cramps hairspring staker current use of anticoagulant Lung nodule Non-smoker Paroxysmal atrial fibrillation Paroxysmal atrial flutter Pulmonary embolism Spinal stenosis Stenosis of right carotid artery Syncope Wears glasses Home Medications acetaminophen 500 mg capsule 500 mg PO BID PRN pain 02/12/23 [History Last Taken 10/24/23] carvedilol 12.5 mg tablet 12.5 mg PO BID blood pressure #60 tabs 02/21/23 [Rx Last Taken 10/24/23] psyllium husk 3.4 gram/5.4 gram oral powder (Metamucil) 2 tsp PO DAILY constipation 10/24/23 [History Last Taken 10/23/23] multivitamin 1 tab PO DAILY supplement 12/09/23 [History Last Taken Unknown] rivaroxaban 20 mg tablet (Xarelto) 20 mg PO QPM blood thinner 12/09/23 [History Last Taken 12/27/23] lisinopril 10 mg tablet 10 mg PO QHS blood pressure 12/30/23 [History Last Taken Unknown] Allergy/AdvReac Type Severity Reaction Status Date / Time sulfamethoxazole Allergy Hives Verified 12/09/23 10:02 [From Bactrim] trimethoprim [From Bactrim] Allergy Hives Verified 12/09/23 10:02 oxycodone AdvReac Other Verified 12/09/23 10:02 Family History Mother CVA (cerebral vascular accident) Hypertension Kidney disease Brother Diabetes Father Diabetes Surgical History (Updated 12/30/23 @ 09:37 by Justa Hill) History of ankle fusion History of cardiac radiofrequency ablation (~01/18/19) History of carpal tunnel surgery History of foot surgery Hx of colonoscopy Hx of decompressive lumbar laminectomy Social History household members: spouse housing: house Smoking Status: Never smoker alcohol intake: never substance use type: does not use Past Medical/Surgical History Planned Operation Planned Operative Procedure/s: CSCOPE Previous Hospitalizations/Surgeries HX Hospitalizations: Yes (10/2023 PARTIAL BOWEL OBSTRUCTION) Any Problems With Anesthesia: No You/Your Family Experience Fever (Hyperthermia) With Anes: No Cholinesterase deficiency: No Cardiovascular Hx Chest Pain within Last 2 months: No Hx of Irregular Heartbeat and/or Afib: Yes Hx Heart Attack: No Hx Congestive Heart Failure: No Hx Rheumatic Fever: No Hx Hypertension: Yes (CONTROLLED WITH MEDS) Hx Internal Defibrillator: No Hx Pacemaker: No Hx Cardiac Surgery/Stents/Etc.: No Hx Pain in Legs when Walking/Leg Cramps: Yes Respiratory HX of Shortness of Breath: No Hx Chronic Obstructive Pulmonary Disease (COPD): No Hx Asthma: No Hx Emphysema: No Hx Sleep Apnea: No Hx Respiratory Tract Infection/Cold (presently): No Do You Snore Loudly (louder than talking or can be heard): No Do You Often Feel Tired/ Fatigued/ Sleepy [place]ring Daytime?: Yes Has Anyone Observed You Stop Breathing During Sleep?: No Result (for STOP score): Positive Hx Smoking: No Smoking Status: Never smoker Gastrointestinal Hx Gastrointestinal Bleed: No Hx Ulcer: No Difficulty Chewing/Swallowing: Yes (swallowing due to dental abscess--full liq) Hx Unplanned Weight Loss of 20#: No Neurological Hx Seizures: No Hx Multiple Sclerosis: No Hx Parkinson's Disease: No Hx Head/Neck Injury: No Hx Headaches: No Hx Back Injury/Pain: Yes (BACK SURGERY) Does patient have nerve stimulator: No Blood Disorder Hx Hepatitis: No Hx Cirrhosis: No Hx Anemia: No Hx Blood Disorders: No Reproduction : No Is Patient Lactating: No Genitourinary Hx Renal Disease: No Hx Dialysis: No Musculoskeletal Hx Arthritis: Yes Hx Rheumatoid Arthritis: No Hx Gout: No Endocrine Hx Diabetes: No Thyroid Disease: No Psycho/Social Hx Substance Use: No Hx Alcohol Use: No Hx Anxiety: No Hx Depression: No Hx Dementia: No Miscellaneous Hx Cancer: No Allergies sulfamethoxazole [From Bactrim] Allergy (Verified 12/09/23 10:02) Hives trimethoprim [From Bactrim] Allergy (Verified 12/09/23 10:02) Hives oxycodone Adverse Reaction (Verified 12/09/23 10:02) Other Maternal: Family History Mother CVA (cerebral vascular accident) Hypertension Kidney disease Brother Diabetes Father Diabetes Stroke Paternal: Family History Mother CVA (cerebral vascular accident) Hypertension Kidney disease Brother Diabetes Father Diabetes No pertinent history Discharge Is Pt Admitted From a Jail, or a Detention: No After D/C, Where Do you Plan to Go: Return Home From the PAT History Number of Risk Factors: 2 Physical Exam Const alert, oriented x3 and no apparent distress HEENT normocephalic and head/scalp atraumatic Resp normal respiratory effort Cardio regular rate GI soft to palpation and non-tender; Negative for non-distended Palpation: Negative for guarding Extremity no clubbing, cyanosis or edema Skin no rashes or lesions noted Neuro CN's II-XII intact bilaterally Psych mental status grossly normal Assessment & Plan Assessment/Plan (1) Screening for colon cancer: (2) hairspring staker current use of anticoagulant: Surgery Risks - Colonoscopy I discussed with the patient the risks of the procedure: Yes Risks Include but are not Limited To: Risks include but are not limited to: Bleeding, perforation requiring further surgery, inability to complete colonoscopy requiring barium enema.
[2023-12-31 09:28] VITALS: BP 136/75; PULSE 76; RESP 16; TEMP 36.3; O2SAT 95; BMI 31.2
[2023-12-31] MEDS: Lactated Ringers 1,000 ML 15 ML IV (09:43)
[2023-12-31 10:37] VITALS: BP 112/73; BP 136/75; PULSE 64; RESP 16; TEMP 36.3; O2SAT 97
[2023-12-31 10:40] VITALS: BP 107/73; BP 136/75; PULSE 64; RESP 16; O2SAT 97
--- NOTE | 2023-12-31 10:41 | OP.COLON_ITS ---
Patient Name: Seun Colon Procedure Date: 12/31/2023 9:54 AM Date of : 1950 Age: 73 Procedure: Colonoscopy Indications: Screening for colorectal malignant neoplasm Providers: Moon Andrews MD Medicines: Monitored Anesthesia Care Patient Profile: This is a 73 year old male. Last Colonoscopy: 2011. Complications: No immediate complications. Procedure: Pre-Anesthesia Assessment: - Prior to the procedure, a History and Physical was performed, and patient medications and allergies were reviewed. The patient's tolerance of previous anesthesia was also reviewed. The risks and benefits of the procedure and the sedation options and risks were discussed with the patient. All questions were answered, and informed consent was obtained. Prior Anticoagulants: The patient has taken Xarelto (rivaroxaban), last dose was 3 days prior to procedure. ASA Grade Assessment: Per anesthesia. After reviewing the risks and benefits, the patient was deemed in satisfactory condition to undergo the procedure. After I obtained informed consent, the scope was passed under direct vision. Throughout the procedure, the patient's blood pressure, pulse, and oxygen saturations were monitored continuously. The pediatric colonoscope was introduced through the anus and advanced to the terminal ileum. The colonoscopy was technically difficult and complex due to a redundant colon. Successful completion of the procedure was aided by changing the patient to a supine position and applying abdominal pressure. The patient tolerated the procedure well. The quality of the bowel preparation was good. Scope In: 10:00:57 AM Scope Withdrawal Time 0 hours 13 minutes 33 seconds Scope Out: 10:32:55 AM Total Procedure Duration Time 0 hours 31 minutes 58 seconds Findings: Hemorrhoids were found on perianal exam. Five semi-pedunculated polyps were found in the rectum and ascending colon. The polyps were 2 to 6 mm in size. These polyps were removed with a hot snare. Resection and retrieval were complete. The terminal ileum appeared normal. The exam was otherwise without abnormality. Impression: - Hemorrhoids found on perianal exam. - Four 3 to 6 mm polyps in the rectum and in the ascending colon, removed with a hot snare. Resected and retrieved. - The examined portion of the ileum was normal. - The examination was otherwise normal. Recommendation: - Discharge patient to home. - Resume previous diet. - Continue present medications. - Await pathology results. - Repeat colonoscopy in 3 - 5 years for surveillance based on pathology results. Procedure Code(s): --- Professional --- 00722, PT, Colonoscopy, flexible; with removal of tumor(s), polyp(s), or other lesion(s) by snare technique Diagnosis Code(s): --- Professional --- Z12.11, Encounter for screening for malignant neoplasm of colon K64.9, Unspecified hemorrhoids D12.8, Benign neoplasm of rectum D12.2, Benign neoplasm of ascending colon CPT copyright 2021 [employer]. All rights reserved. The codes documented in this report are preliminary and upon oracle business intelligence developer review may be revised to meet current compliance requirements. MD Moon Ledesma MD 12/31/2023 10:40:48 AM This report has been signed electronically. Number of Addenda: 0 Note Initiated On: 12/31/2023 9:54 AM
--- NOTE | 2023-12-31 10:41 | OP.CCLET_ITS ---
12/31/2023 Linden Velázquez Re : Colonoscopy procedure for Seun Colon Dear Eber This procedure was performed on Sunday, December 31, 2023. My impressions and recommendations are as follows: Impressions : - Hemorrhoids found on perianal exam. - Four 3 to 6 mm polyps in the rectum and in the ascending colon, removed with a hot snare. Resected and retrieved. - The examined portion of the ileum was normal. - The examination was otherwise normal. Recommendations : - Discharge patient to home. - Resume previous diet. - Continue present medications. - Await pathology results. - Repeat colonoscopy in 3 - 5 years for surveillance based on pathology results. My findings are described in the full procedure note, which is enclosed. If I can be of further assistance, please feel free to contact me at Doctor phone number(s): , Work: . Sincerely, MD Moon Ledesma MD 12/31/2023 10:40:48 AM This report has been signed electronically.
[2023-12-31 10:45] VITALS: BP 105/73; BP 136/75; PULSE 65; RESP 16; O2SAT 97
[2023-12-31 10:50] VITALS: BP 109/67; BP 136/75; PULSE 66; RESP 16; TEMP 36.3; O2SAT 95
--- NOTE | 2023-12-31 11:00 | COLBX_PTH ---
PATIENT: JEFFERSON BARRETO LOC: EN U#:[id number] AGE/SX: 73/M ROOM: RE12/31/[address]: Dr. Moon Andrews MD : 1950 BED: DIS: 12/31/2023 SPEC #: [id number] RECD: 12/31/23 13:47 STATUS: FRANCISCO REPrabhjot #: [id number] JUAN: 12/31/23 11:[address]: Moon Andrews DEPT: SURGICAL PATHOLOGY RECD BY: Janneth Arnold ENTERED: 12/31/23 14:00 SP TYPE: COLON BX OTHR DR: Dr. Linden Velázquez, DO Tissues: A - Ascending colon B - Rectum, NOS Procedures: Surgery Specimen Level IV HEADER OPERATION: Colonoscopy with polypectomy PRE-OP DIAGNOSIS: Screening for colon cancer, terminal carman current use of anticoagulant TISSUE SUBMITTED: A- Ascending colon polyps x3, B- Rectal polyp x2 MICROSCOPIC DIAGNOSIS A. Ascending colon polypx3, polypectomy: Fragments of tubular adenoma. B. Rectal polyp x2, polypectomy: Fragments of hyperplastic polyp with cautery artifacts. Fragments of fecal material. / 01/01/2024 MICROSCOPIC DESCRIPTION Slides are reviewed. GROSS DESCRIPTION A. Received in fixative is one container labeled with the patient's name and designated Ascending colon polyp x3. The specimen consists of two polyps measuring 0.6 x 0.6 x 0.8cm and 0.8 x 0.8 x 0.8cm. A few smaller fragments of [place] soft tissue are also noted measuring 0.6 x 0.2 x 0.1cm. Larger two polyps are bisected. The entire specimen is submitted in one cassette. B. Received in fixative is one container labeled with the patient's name and designated Rectum polypx2. The specimen consists of multiple irregular fragments of light [place] soft tissue that in aggregate measure 1.0 x 0.3 x 0.1 cm. The specimen is totally submitted in one cassette. / 12/31/2023 TC:1 CPT:14179r1
[2023-12-31 11:22] VITALS: BP 136/75
== END 2023-12-31 11:24 | disposition home or self-care (01) ==
LOC: EN 08:53 → AC 08:55
PROVIDERS: PCP Family Medicine; Referring Provider Family Medicine; Visit Provider Surgery
PROC: 0DJD8ZZ Inspection of Lower Intestinal Tract, Via Natural or Artificial Opening Endoscopic (ICD-10-PCS; CPT 45378; principal; 2023-12-31 10:55)
DX: Z12.11 Encounter for screening for malignant neoplasm of colon (principal); I48.0 Paroxysmal atrial fibrillation; E11.9 Type 2 diabetes mellitus without complications; Z79.01 Long term (current) use of anticoagulants; K62.1 Rectal polyp; K64.4 Residual hemorrhoidal skin tags; I10 Essential (primary) hypertension; Z79.899 Other long term (current) drug therapy; D12.2 Benign neoplasm of ascending colon
CPT/HCPCS: 45385; 88305; J7120; J2405

== ENCOUNTER → 2025-04-27 | Outpatient (CLI) | payer MEDICARE, OTHER, SELFPAY ==
--- NOTE | 2025-04-27 09:40 | CDU_ITS ---
Reason For Study Reason For Study: Dizziness Rt. Velocities/BP Lt. Velocities/BP Prox CCA 78.7/11.6 cm/sec. Prox CCA 92.7/15.7 cm/sec. Mid CCA 101.1/21.2 cm/sec. Mid CCA 90.5/19.0 cm/sec. Dist CCA 85.1/16.3 cm/sec. Dist CCA 86.1/21.2 cm/sec. Prox ICA 62.6/17.3 cm/sec. Prox ICA 57.9/13.5 cm/sec. Mid ICA 68.3/15.4 cm/sec. Mid ICA 66.3/19.0 cm/sec. Dist ICA 66.1/19.0 cm/sec. Dist ICA 79.9/27.9 cm/sec. Rt. ICA/CCA = 0.8. Lt. ICA/CCA = 0.9. Prox ECA 86.3/7.7 cm/sec. Prox ECA 68.5/3.6 cm/sec. Rt. Vert. 30.5/7.8 cm/sec. Lt. Vert. 49.8/16.8 cm/sec. Right Extracranial There is intimal thickening but no significant atherosclerotic plaque noted in the right common carotid artery. There is heterogeneous, irregular atherosclerotic plaque noted in the right internal carotid artery. There is heterogeneous, irregular atherosclerotic plaque noted in the right external carotid artery. Antegrade flow is noted in the right vertebral artery. Left Extracranial There is intimal thickening but no significant atherosclerotic plaque noted in the left common carotid artery. There is heterogeneous, smooth atherosclerotic plaque noted in the left internal carotid artery. There is intimal thickening but no significant atherosclerotic plaque noted in the left external carotid artery. Procedure Carotid Duplex 16786. This is a Carotid Duplex examination using B-mode, color flow and specral Doppler. Exam performed in department. VL/Carotid Duplex Ultrasound Interpretation Summary Mild (<50%) stenosis right extracranial internal carotid. Mild (<50%) stenosis left extracranial internal carotid. Flow within the vertebral arteries is antegrade bilaterally. Ordering Physician: Rick Lora Referring Physician: Rick Lora Performed By: Zuleika Nayak RVT
== END | disposition home or self-care (01) ==
PROVIDERS: PCP Family Medicine; Referring Provider Student in an Organized Health Care Education/Training Program; Visit Provider Student in an Organized Health Care Education/Training Program
DX: R42 Dizziness and giddiness (principal)
CPT/HCPCS: 93880

== ENCOUNTER → 2025-06-03 | Outpatient (CLI) | payer MEDICARE, OTHER, SELFPAY ==
--- NOTE | 2025-06-03 09:50 | STEWCON_ITS ---
Reason For Study Reason For Study: ABN CARDIAC CALCIUM SCORE TEST, WOLF Stress Results Protocol: Michael Protocol WITH DEFINITY Maximum Predicted HR: 146 bpm Target HR: 124 bpm % Maximum Predicted HR: 89 % DurationHeart Rate Stage (mm:ss) (bpm) BP Comment BASELINE 63 142/883 CC DEFINITY FOR ENTIRE TEST STAGE 1 3:00 118 162/82 STAGE 2 1:30 130 / RECOVERY 77 132/78 Stress Duration: 4:30 mm:ss Maximum Stress HR: 130 bpm Baseline Echocardiogram Findings Stress Echo Wall motion Data Resting WM Intermediate WM Stress WM ECHO/Stress Test Echo W/Contrast Interpretation Summary Stress echo. 75-year-old man with a history of abnormal calcium score. Stress echocardiogram. Resting KG demonstrates normal sinus rhythm with a rate of 64 bpm no intervals noted resting blood pressure 142/88 mmHg. The patient exercised according to regular Michael pr otocol for total duration of 4 minutes and 30 seconds of maximal heart rate attained 137 bpm which was 93% of maximum predicted heart rate maximum workload was 7 metabolic equivalents. At rest there were no ST or T wave changes noted sugge st ischemia at peak exercise upsloping ST changes only were noted which did not meet the criteria for ischemia. The peak blood pressure was 162/82 mmHg. No clinical angina was noted. Stress echocardiogram. The resting echocardiogram was performed with Definity enhancement demonstratin g an ejection fraction of approximately 55%. No wall motion abnormalities were noted and at peak exercise there was imp rovement in the ejection fraction to 65% with no wall motion abnormalities noted. No clinical angina was noted. Conclusion: Exercise stress echocardiogram with no EKG or echocardiographic criteria for is chemia at a moderate workload. Ordering Physician: Rick Lora Referring Physician: Rick Lora Performed By: Julianne Alvarado, RUBÉN, RVT
== END | disposition home or self-care (01) ==
LOC: CVS 09:48
PROVIDERS: PCP Family Medicine; Referring Provider Student in an Organized Health Care Education/Training Program; Visit Provider Student in an Organized Health Care Education/Training Program
DX: I25.10 Atherosclerotic heart disease of native coronary artery without angina pectoris (principal); R06.09 Other forms of dyspnea
CPT/HCPCS: 93017; 93350; Q9957; A4216; C8928